=== PATIENT | female | born 1980 | race Caucasian/White ===

== ENCOUNTER 2019-11-11 08:22 | Outpatient (CLI) | payer OTHER, SELFPAY ==
--- NOTE | 2019-11-11 08:33 | US_ITS ---
WS: [id number] RIGHT UPPER QUADRANT ULTRASOUND HISTORY: ELEVATED LIVER ENZYMES COMPARISON: None available. Liver: 14.7 cm in length. Normal size and echogenicity with no intrahepatic dilatation. No mass. Gallbladder: Normally distended gallbladder with no stones or wall thickening. CBD: 0.3 cm Pancreas: Normal size and echogenicity. Right kidney: 12.4 cm in length. Normal echogenicity with no mass or hydronephrosis. Aorta and IVC: Unremarkable. No ascites. US/US abdomen limited [id number] IMPRESSION: Normal RIGHT upper quadrant ultrasound.
== END 2019-11-11 08:23 | disposition home or self-care (01) ==
LOC: RAD 08:24
PROVIDERS: PCP Nurse Practitioner; Visit Provider Nurse Practitioner
DX: R74.8 Abnormal levels of other serum enzymes (principal)
CPT/HCPCS: 76705

== ENCOUNTER 2020-05-01 07:57 | Outpatient (CLI) | payer OTHER, SELFPAY ==
--- NOTE | 2020-05-01 08:45 | US_ITS ---
WS: [id number] ULTRASOUND ABDOMEN LIMITED CLINICAL INFORMATION: RIGHT UPPER QUADRANT PAIN COMPARISON: November 11, 2019 FINDINGS: Liver Normal portal vein flow Size: Normal. Craniocaudal length: 14.8 cm. Echogenicity: Normal. Surface nodularity: None. Mass (size and location): Small cyst in left hepatic lobe. Bile ducts Intrahepatic ducts: Normal. Common bile duct diameter: 0.3 cm. Gallbladder Cholecystectomy Pancreas Not well seen due to bowel gas Right kidney: Normal. Hydronephrosis: None. Size: 12.3 cm x 5.4 cm x 3.9 cm. Abdominal aorta and IVC Visualized portions are normal. Ascites: None. US/US abdomen limited 11586 IMPRESSION: 1. Normal liver with simple 13 mm hepatic cyst 2. Gallbladder has been surgically removed. 3. No hydronephrosis in right kidney. 4. No ascites.
== END 2020-05-01 07:58 | disposition home or self-care (01) ==
PROVIDERS: PCP Nurse Practitioner; Visit Provider Nurse Practitioner
DX: R10.11 Right upper quadrant pain (principal); Z90.49 Acquired absence of other specified parts of digestive tract
CPT/HCPCS: 76705; 81025

== ENCOUNTER → 2020-05-24 14:57 | Outpatient (BNVA) | payer OTHER, SELFPAY | PROVIDERS: PCP Nurse Practitioner; Visit Provider Obstetrics & Gynecology | DX: R87.610 Atypical squamous cells of undetermined significance on cytologic smear of cervix (ASC-US) (principal); R87.810 Cervical high risk human papillomavirus (HPV) DNA test positive | CPT/HCPCS: 88305 ==

== ENCOUNTER 2020-10-24 13:56 | Outpatient (CLI) | payer OTHER, SELFPAY ==
--- NOTE | 2020-10-24 14:03 | US_ITS ---
WS: [id number] THYROID ULTRASOUND (TI-RADS CRITERIA) History: Enlarged thyroid. Technique: Ultrasound examination of the thyroid and adjacent soft tissues is performed. FINDINGS: Right lobe: 4.6 cm x 1.9 cm x 1.7 cm. Volume: 7.5 cm3. Normal size gland. No increased vascularity. Lymph nodes: None. NODULE: 1 Size: 0.8 x 0.9 x 1.1 cm Location: Mid gland. Composition: Mixed cystic and solid (1) Echogenicity: Hyperechoic (1) Shape: Not taller than wide (0) Margins: Smooth (0) Echogenic foci: 0 ACR TI-RADS total points: 2 ACR TI-RADS risk category: TR2 Left lobe: 4.4 cm x 1.5 cm x 1.5 cm. Volume: 5.0 cm3. Normal size gland. Very mild heterogeneity. No nodule. Lymph nodes: None. Isthmus: 0.2 cm. US/US thyroid [id number] Impression: TR2 Recommendation:No FNA or follow-up.
== END 2020-10-24 13:57 | disposition home or self-care (01) ==
LOC: US 14:00
PROVIDERS: PCP Nurse Practitioner; Visit Provider Nurse Practitioner
DX: E04.9 Nontoxic goiter, unspecified (principal)
CPT/HCPCS: 76536

== ENCOUNTER → 2021-06-21 12:15 | Outpatient (BNVA) | payer OTHER, SELFPAY | PROVIDERS: PCP Nurse Practitioner; Visit Provider Registered Nurse Neonatal Intensive Care | DX: N39.0 Urinary tract infection, site not specified (principal) | CPT/HCPCS: 81000 ==

== ENCOUNTER → 2021-09-18 12:38 | Outpatient (BNVA) | payer OTHER, SELFPAY | PROVIDERS: PCP Nurse Practitioner; Visit Provider Nurse Practitioner Family | DX: N39.0 Urinary tract infection, site not specified (principal) | CPT/HCPCS: 51798; 81003; 87086; 99203 ==

== ENCOUNTER → 2021-10-16 14:16 | Outpatient (BNVA) | payer OTHER, SELFPAY | PROVIDERS: PCP Nurse Practitioner; Visit Provider Obstetrics & Gynecology | DX: Z12.4 Encounter for screening for malignant neoplasm of cervix (principal) | CPT/HCPCS: 87624 ==

== ENCOUNTER → 2021-10-17 14:51 | Outpatient (BNVA) | payer OTHER, SELFPAY | PROVIDERS: PCP Nurse Practitioner; Visit Provider Obstetrics & Gynecology | DX: R89.6 Abnormal cytological findings in specimens from other organs, systems and tissues (principal); R87.610 Atypical squamous cells of undetermined significance on cytologic smear of cervix (ASC-US); N83.02 Follicular cyst of left ovary; N83.01 Follicular cyst of right ovary; N88.8 Other specified noninflammatory disorders of cervix uteri; Z97.5 Presence of (intrauterine) contraceptive device | CPT/HCPCS: 76830 ==

== ENCOUNTER → 2021-10-29 15:32 | Outpatient (BNVA) | payer OTHER, SELFPAY | PROVIDERS: PCP Nurse Practitioner; Visit Provider Urology | DX: N39.0 Urinary tract infection, site not specified (principal) | CPT/HCPCS: 81003; 99213 ==

== ENCOUNTER 2021-11-05 09:50 | Observation (INO) | payer OTHER, SELFPAY ==
[2021-11-04 14:42] VITALS: BMI 32.0
[2021-11-05] VITALS (17 sets, daily range): BP systolic 87–129; BP diastolic 55–87; PULSE 73–97; RESP 15–18; TEMP 36.3–36.7; O2SAT 94–98
[2021-11-05] MEDS: sodium chloride 0.9% 1,000 ML 30 ML IV (06:20)
[2021-11-05] MEDS: acetaminophen 1,000 MG/100 ML PIGGYBACK 400 MG IV (06:23)
[2021-11-05] MEDS: gabapentin 300 mg Capsule PO (06:24)
[2021-11-05] MEDS: CELEcoxib 200 mg Capsule 400 MG PO (06:24)
[2021-11-05] MEDS: phenazopyridine 100 mg Tablet 200 MG PO ×2 (06:25→14:29)
[2021-11-05] MEDS: scopolamine 1.5 Patch 1 PATCH TRANSDERMA (06:25)
[2021-11-05] MEDS: ketorolac 30 mg/mL INJ IVP ×4 (06:34→22:13)
--- NOTE | 2021-11-05 06:45 | P.ANESASSM_ITS ---
Pre-Anesthetic Assessment Height/Weight: Height 1.57 m Weight 79.379 kg Temp Pulse Resp BP Pulse Ox O2 Del Method 98 F 90 18 124/87 97 11/05/21 06:05 11/05/21 06:05 11/05/21 06:05 11/05/21 06:05 11/05/21 06:05 11/05/21 06:05 Preop Diagnosis: uterine prolapse, abnormal pap smear Operation Date: 11/05/21 07:00 Proposed Procedures p Laparoscopic assisted vaginal hysterectomy, bilateral salpingectomy 39940,R8 7.610,R87.810,N81.4(Not Applicable) - Tiffany Carvalho MD s Laparoscopic Salpingectomy(Bilateral) - Tiffany Carvalho MD Familial anesthetic complications: None Was Beta Poli taken within 24 hours: N/A Was Clonidine taken within 24 hours: N/A Last intake: Intake Last Liquid Date 11/04/21 Last Liquid Time 20:00 Last Solid Date 11/04/21 Last Solid Time 18:00 Social No alcohol and No tobacco Exam alert, oriented x 3, clear to auscultation bilaterally and regular rate & rhythm Airway Mallampati: Class III Dentition: other (dental implants) Pulmonary None reported CV/HEM None reported None reported Hepatic None reported GI None reported Metabolic None reported Musc/skel None reported Neuropsych None reported Anesthetic Plan ASA status: 2 Anesthesia: General Risk of > 500 ml blood loss (7ml/kg in children): No Medications/Allergies Home Medications Medication Instructions Recorded Confirmed Last Taken Type ibuprofen 200 mg tablet 200 mg PO Q6H PRN Pain 05/01/20 11/05/21 Unknown History levonorgestrel 20 mcg/24 hours (7 20 mcg intrauterine DAILY 05/01/20 11/05/21 Unknown History yrs) 52 mg intrauterine device (Mirena) fluoxetine 10 mg capsule (Prozac) 10 mg PO DAILY 06/21/21 11/05/21 11/04/21 History sulfamethoxazole 800 1 tab PO BID #60 tabs 10/29/21 11/05/21 11/04/21 Rx mg-trimethoprim 160 mg tablet Allergies Allergy/AdvReac Type Severity Reaction Status Date / Time No Known Allergies Allergy Verified 11/01/21 11:11 Current Medications Generic Name Dose Route Start Last Admin Trade Name Freq PRN Reason Stop Dose Admin Sodium Chloride 1,000 mls @ 30 mls/hr 11/05/21 06:00 11/05/21 06:20 Sodium Chloride 0.9% IV 11/06/21 05:59 30 mls/hr .Q24H DENITA Administration PFSH Anesthesia Medical History Contraception management Hx LEEP (loop electrosurgical excision procedure), cervix, Surgical History H/O eye surgery 2008- Lasik bilateral eyes H/O oral surgery wisdom teeth extraction History of breast augmentation History of cholecystectomy Family History Grandfather CAD (coronary artery disease) maternal Mother No problems noted. Grandmother CAD (coronary artery disease) maternal Family/Other Breast cancer maternal aunt, age onset 32-34 Rectal cancer maternal aunt Father No problems noted. Social History Smoking and tobacco status: never smoked Alcohol intake: current Alcohol intake frequency: holidays/special occasions only Alcohol type: wine and hard liquor Marital status: Current occupational status: employed History of recent travel: No Data Anesthesia : 11/05/21 06:10 11/05/21 06:10 Cardiac Studies: No Data to Display
[2021-11-05 06:46] LABS: Basophils # 0.1 10^3/uL (0.0-0.1); Basophils % 0.9 %; Eosinophils # 0.2 10^3/uL (0.0-0.8); Eosinophils % 2.6 %; Hematocrit 40.9 % (37.0-47.0); Lymphocytes # 2.5 10^3/uL (0.8-4.8); Lymphocytes % 38.2 %; Mean Corpuscular HGB Conc 34.2 g/dL (30.0-36.0); Mean Corpuscular Hemoglobin 32.3 pg (28.0-34.0); Mean Corpuscular Volume 94.5 fl (81-99); Mean Platelet Volume 9.7 fL (7.4-10.4); Monocytes # 0.5 10^3/uL (0.2-0.9); Monocytes % 7.7 %; Neutrophils # 3.28 10^3/uL (1.8-7.7); Neutrophils % 50.4 %; Nucleated Red Blood Cells % 0 %; Platelet Count 286 10^3/cmm (130-400); Red Blood Count 4.33 10^6/uL (4.1-5.3); Red Cell Distribution Width 11.7 % (12.1-15.1); White Blood Count 6.5 10^3/uL (4.0-10.0)
[2021-11-05 06:55] LABS: OR HCG Qualitative Urine Negative (Negative)
[2021-11-05 07:02] LABS: Anion Gap 14.8 (5-19); Blood Urea Nitrogen 13 mg/dL (6-20); Calcium 8.9 mg/dL (8.5-10.5); Carbon Dioxide 25 mmol/L (22-29); Chloride 101 mmol/L (98-107); Glomerular Filtration Rate 69.7 mL/min (90-130); Glucose 96 mg/dL (65-115); Osmolality Calculated 284 mOsm/kg (285-295); Potassium 3.8 mmol/L (3.5-5.1); Sodium 137 mmol/L (136-145)
--- NOTE | 2021-11-05 07:04 | P.HPUD_ITS ---
Surgery/Procedure H&P Update DATE OF PROCEDURE: November 05, 2021 DATE H&P PERFORMED: 11/01/21 H&P UPDATE INFORMATION: I have reviewed H&P completed within last 30 days, I have examined patient prior to procedure and Changes to prior documentation as noted here CHANGES TO PREVIOUS DOCUMENTATION: The patient's pap smear was abnormal. ASCUS HR HPV +. Discussed with patient that she will need yearly pap for the next 20 years. PREOP DIAGNOSIS: uterine prolapse, abnormal pap smear PRIMARY INDICATION FOR PROCEDURE: uterine prolapse PLANNED PROCEDURE: Operation Date: 11/05/21 07:00 Proposed Procedures p Laparoscopic assisted vaginal hysterectomy, bilateral salpingectomy 32638,R 87.610,R87.810,N81.4(Not Applicable) - Tiffany Carvalho MD s Laparoscopic Salpingectomy(Bilateral) - Tiffany Carvalho MD
[2021-11-05] MEDS: ceFAZolin 2,000 MG in sodium chloride 0.9% (plus) 50 ML 100 MG IV ×3 (07:09→23:29)
[2021-11-05] MEDS: vasopressin 20 unit/mL INJ 4 UNIT INJECTION (08:00)
--- NOTE | 2021-11-05 09:03 | PM.OP ---
Operative Report Date of procedure: November 05, 2021 Pre-op diagnosis: Preop Diagnosis uterine prolapse, abnormal pap smear Post-op diagnosis: same Post-op findings: 10 week sized uterus, normal appearing fallopian tubes,polycystic ovaries moderate bowel adhesion to the umbilicus Procedure done: LAVH, bilateral salpingectomy Specimens removed/disposition: uterus and bilateral fallopian tubes to pathology Surgeon: Tiffany Carvalho Anesthesia: General Estimated blood loss (mL): 150 IV fluids (mL): 1,300 Urine output (mL): 300 Complications: none Condition: stable Disposition: PACU Procedure: The patient was taken to the operating room where general anesthesia was administered and found to be adequate. She was prepped and draped in the normal sterile fashion in the dorsal lithotomy position in [facility]. A Matthews catheter was placed. A weighted speculum was placed into the vagina and the anterior lip of the cervix was grasped with a single tooth tenaculum. The Zumi uterine manipulator was placed. The weighted speculum was removed. The gloves were changed and attention was turned to the abdomen. A 5 mm supraumbilical incision was made. Using a 5 mm port with the camera, the port was placed into the abdomen. The abdomen was insufflated. There was a fairly large bowel adhesion to the anterior abdominal wall near the umbilicus. Two low, lateral 5 mm ports were placed on the left and right under direct visualization from the camera. The right tube was grasped and elevated. Using the laparoscopic cautery, the mesosalpinx was divided between the ovary and tube. The tube was removed. This was performed the same way on the left. The uteroovarian ligaments as well as the round ligaments were ligated. Attention was then turned to the vaginal portion of the procedure. The weighted speculum was placed into the vagina. The zumi manipulator was removed. The single tooth tenaculum was removed and replaced with the beni's tenaculum. 10 mL of dilute Pitressin was injected at the vesicovaginal junction. A circumferential incision was made at the vesicovaginal junction and the vaginal mucosa reflected cephalad. The posterior peritoneum was entered sharply with the Metzenbaum scissors and the long weighted speculum replaced. Using the Shaye clamps the uterosacral ligaments were clamped cut and suture-ligated. The anterior peritoneum was entered sharply with the metzenbaum scissors. Then sequentially the uterine arteries and cardinal ligaments were clamped cut and suture-ligated. A single-tooth tenaculum was used to deliver the uterus. The remaining segement of the utero-ovarian ligaments were clamped cut and suture-ligated bilaterally and the specimen was removed. There was good hemostasis with only mild bleeding from the cuff. The peritoneum was closed with a pursestring using 2-0 Vicryl. The vaginal cuff was closed with 0 Vicryl in a running locked pattern incorporating the uterosacral ligaments into the lateral aspects of the vaginal cuff. The Matthews catheter was removed and the cystoscope advanced into the bladder. The patient was given pyridium and bilateral spill was noted. There were no injuries or deficits noted in the bladder. The cystoscope was removed and the Matthews was replaced. Vaginal packing was placed for good hemostasis. The gloves and gowns were changed and attention was turned to the abdomen. The ports were closed with 2-0 monocryl with skin glue. The patient tolerated the procedure well. Sponge lap and needle counts were correct x3. She was taken to the recovery room in stable condition.
[2021-11-05] MEDS: fentaNYL 50 mcg/mL INJ 2mL IVP (09:11)
[2021-11-05] MEDS: dextrose 5%-sod chloride 0.45% 1,000 ML 125 ML IV (11:08)
--- NOTE | 2021-11-05 13:21 | ANE.PACU2 ---
Inpatient post-anesthesia follow up: Airway intact: Yes Vital signs: Temperature 97.3 F Pulse Rate 80 Respiratory Rate 16 Blood Pressure 110/69 Pulse Oximetry 97 Oxygen Delivery Me thod Room Air Oxygen Flow Rate Fraction of Inspir ed Oxygen Hydration adequate: Yes Nausea and vomiting: No Pain level: 1 Mental status: Baseline
[2021-11-05] MEDS: docusate sodium 100 mg Capsule PO (17:17)
[2021-11-05] MEDS: HYDROcodone-acetaminophen 5-325 mg Tablet PO (17:17)
[2021-11-06] MEDS: ketorolac 30 mg/mL INJ IVP (05:06)
[2021-11-06 05:10] VITALS: BP 106/64; PULSE 72; RESP 16; O2SAT 97
[2021-11-06 05:51] LABS: Hematocrit 36.1 % (37.0-47.0); Hemoglobin 12.4 g/dL (11.5-15.3); Mean Corpuscular HGB Conc 34.3 g/dL (30.0-36.0); Platelet Count 273 10^3/cmm (130-400); Red Blood Count 3.88 10^6/uL (4.1-5.3); Red Cell Distribution Width 11.9 % (12.1-15.1); White Blood Count 12.3 10^3/uL (4.0-10.0)
--- NOTE | 2021-11-06 08:36 | P.DS_ITS ---
Discharge Providers Date of Admission: 11/05/21 09:50 Date of Discharge: November 06, 2021 Attending Provider at Admission: Tiffany Carvalho MD Attending Provider at Discharge: Tiffany Carvalho MD Primary Care Provider: AMISH Marti Hospital Course Hospital Course The patient was admitted for surgery. She did well postoperatively and was ready for discharge on day #1 Physical Exam Narrative: The patient is doing well this morning. No concerns Const: COMMON NORMALS: no acute distress, patient oriented x3, no limitations, healthy appearing, alert and well nourished GENERAL APPEARANCE: cooperative, comfortable, well kempt and well developed ORIENTATION/CONSCIOUSNESS: Yes awake, Yes oriented to person, Yes oriented to place and Yes oriented to time Resp: COMMON NORMALS: normal respiratory effort EFFORT & INSPECTION: Yes able to speak in complete sentences GI: COMMON NORMALS: Soft to palpation and non-tender PALPATION: Yes Soft to palpation Extremity: COMMON NORMALS: no calf tenderness Neuro: COMMON NORMALS: patient oriented x3 SENSORIUM/ORIENTATION: Yes alert, Yes oriented to person, Yes oriented to place and Yes oriented to time Psych: APPEARANCE: Yes well kempt Urinary Catheter Management: Matthews: Cath Placed During This Visit: yes, but has since been removed by the nurse Reason for Continuing Indwelling Catheter: Decision to DC Catheter Urinary Catheter Date of Insertion: 11/05/21 Urinary Catheter Time of Insertion: 07:35 Date Urinary Catheter Removed: 11/06/21 Time Urinary Catheter Discontinued: 05:15 Discharge Data Studies Completed and Pending Pending at discharge Category Date Time Status ES surgery / GI images Routine Exams 11/05/21 06:40 Taken Urine Culture Routine Lab 11/05/21 07:35 Received Pathology: Surgical [PTH] Routine Pth 11/05/21 09:16 Received Laboratory Results WBC 12.3 10^3/uL (4.0-10.0) H 11/06/21 05:18 RBC 3.88 10^6/uL (4.1-5.3) L 11/06/21 05:18 Hgb 12.4 g/dL (11.5-15.3) 11/06/21 05:18 Hct 36.1 % (37.0-47.0) L 11/06/21 05:18 MCV 93.0 fl (81-99) 11/06/21 05:18 MCH 32.0 pg (28.0-34.0) 11/06/21 05:18 MCHC 34.3 g/dL (30.0-36.0) 11/06/21 05:18 RDW 11.9 % (12.1-15.1) L 11/06/21 05:18 Plt Count 273 10^3/cmm (130-400) 11/06/21 05:18 MPV 11.0 fL (7.4-10.4) H 11/06/21 05:18 Neut % (Auto) 50.4 % 11/05/21 06:10 Lymph % (Auto) 38.2 % 11/05/21 06:10 Camb[place] % (Auto) 7.7 % 11/05/21 06:10 Eos % (Auto) 2.6 % 11/05/21 06:10 Baso % (Auto) 0.9 % 11/05/21 06:10 Neut # (Auto) 3.28 10^3/uL (1.8-7.7) 11/05/21 06:10 Lymph # (Auto) 2.5 10^3/uL (0.8-4.8) 11/05/21 06:10 Cambria # (Auto) 0.5 10^3/uL (0.2-0.9) 11/05/21 06:10 Eos # (Auto) 0.2 10^3/uL (0.0-0.8) 11/05/21 06:10 Baso # (Auto) 0.1 10^3/uL (0.0-0.1) 11/05/21 06:10 Nucleated RBC % (auto) 0 % 11/05/21 06:10 Nucleated RBCs # 0.0 /100WBC 11/05/21 06:10 Sodium 137 mmol/L (136-145) 11/05/21 06:10 Potassium 3.8 mmol/L (3.5-5.1) 11/05/21 06:10 Chloride 101 mmol/L (98-107) 11/05/21 06:10 Carbon Dioxide 25 mmol/L (22-29) 11/05/21 06:10 Anion Gap 14.8 (5-19) 11/05/21 06:10 BUN 13 mg/dL (6-20) 11/05/21 06:10 Creatinine 0.9 mg/dL (0.5-0.9) 11/05/21 06:10 GFR Calculation 69.7 mL/min (90-130) L 11/05/21 06:10 Glucose 96 mg/dL (65-115) 11/05/21 06:10 Calculated Osmolality 284 mOsm/kg (285-295) L 11/05/21 06:10 Calcium 8.9 mg/dL (8.5-10.5) 11/05/21 06:10 Urine HCG, Qual Negative (Negative) 11/05/21 06:27 Blood Type A Positive 11/05/21 06:10 Rho(D) Type Positive 11/05/21 06:10 Antibody Screen Negative 11/05/21 06:10 Vitals Last Vital Signs Temp 97.7 F 11/05/21 22:00 Pulse 72 11/06/21 05:10 Resp 16 11/06/21 05:10 BP 106/64 11/06/21 05:10 Pulse Ox 97 11/06/21 05:10 O2 Del Method 11/06/21 05:10 Discharge Plan Discharge Patient Disposition: Home Condition: Stable Prescriptions: New docusate sodium 100 mg Capsule 100 mg PO BID Qty: 60 0RF ibuprofen 800 mg Tablet 800 mg PO Q8H Qty: 30 0RF hydrocodone-acetaminophen 5-325 mg Tablet 1 tab PO Q4H PRN (Reason: Moderate To Severe Pain) Qty: 25 0RF Continued ibuprofen 200 mg tablet 200 mg PO Q6H PRN (Reason: Pain) Mirena 20 mcg/24 hours (6 yrs) 52 mg intrauterine device 20 mcg intrauterine DAILY fluoxetine [Prozac] 10 mg capsule 10 mg PO DAILY sulfamethoxazole-trimethoprim 800-160 mg tablet 1 tab PO BID Qty: 60 2RF Discharge Orders: Discharge Order (Routine); Ordered 11/06/21 Ordered By: Tiffany Carvalho Patient Instructions: Opioid Safety Discharge Attestations Time Spent in Discharge Care*: less than 30 min Quality Metrics Clinical Quality Measures [ No reported AMI, CVA or VTE this stay] Coding Level of Care Code Acute Chg FW DC note
[2021-11-06 09:15] VITALS: BP 106/69; PULSE 78; RESP 16; TEMP 37
[2021-11-06] MEDS: HYDROcodone-acetaminophen 5-325 mg Tablet PO (09:15)
[2021-11-06] MEDS: ibuprofen 800 mg tablet PO (09:15)
[2021-11-06] MEDS: docusate sodium 100 mg Capsule PO (09:15)
== END 2021-11-06 09:28 | disposition home or self-care (01) ==
LOC: OBGYN 09:51
PROVIDERS: Anesthesiology; Admitting Provider Obstetrics & Gynecology; PCP Nurse Practitioner; Visit Provider Obstetrics & Gynecology
PROC: 0UT9FZZ Resection of Uterus, Via Natural or Artificial Opening With Percutaneous Endoscopic Assistance (ICD-10-PCS; CPT 58552; principal; 2021-11-05 07:00)
PROC: (CPT 58661; 2021-11-05 07:00)
DX: N81.4 Uterovaginal prolapse, unspecified (principal); R87.619 Unspecified abnormal cytological findings in specimens from cervix uteri; E28.2 Polycystic ovarian syndrome
CPT/HCPCS: 58552; 36415; 80048; 81025; 84703; 85025; 85027; 86850; 86900; 87086; 88305; G0378; J1100; J1170; J1885; J2250; J2405; J2704; J2710; J3010; J3490; J7030; J7799

== ENCOUNTER → 2021-12-27 08:27 | Outpatient (BNVA) | payer OTHER, SELFPAY | PROVIDERS: PCP Nurse Practitioner; Visit Provider Urology | DX: N30.20 Other chronic cystitis without hematuria (principal) | CPT/HCPCS: 87086; 99213 ==

== ENCOUNTER → 2022-01-20 13:18 | Outpatient (BNVA) | payer OTHER, SELFPAY | PROVIDERS: PCP Nurse Practitioner; Referring Provider Nurse Practitioner; Visit Provider Podiatrist Foot & Ankle Surgery | DX: M21.611 Bunion of right foot (principal); M21.612 Bunion of left foot | CPT/HCPCS: 73630; 99204 ==

== ENCOUNTER 2022-02-28 05:47 | Day surgery (SDC) | payer OTHER, SELFPAY ==
[2022-02-27 09:48] VITALS: BMI 31.1
--- NOTE | 2022-02-28 | XR_ITS ---
WS: [id number] Left foot, C-arm fluoroscopy, 02/28/2022 Clinical Data: left lapidus and buniectomy Comparison: Left foot, 01/20/2022 Findings: The patient has a fusion of the left first metatarsal cuneiform joint with a medial plate and 4 ortho pedic screws. There is also a longitudinal screw in the fusion. There has been a partial resection of the medial aspect of the head of the left metatarsal. XR/XR foot LT 2V [id number] Impression: Fusion of the left first metatarsal cuneiform joint with a partial resection of the medial head of the left first metatarsal.
[2022-02-28 05:54] VITALS: BP 127/80; PULSE 77; RESP 16; TEMP 36.9; O2SAT 97
[2022-02-28] MEDS: CELEcoxib 200 mg Capsule 400 MG PO (06:11)
[2022-02-28] MEDS: sodium chloride 0.9% 1,000 ML 30 ML IV (06:11)
--- NOTE | 2022-02-28 06:56 | W.PM.OPSUD ---
Surgery/Procedure H&P Update DATE OF PROCEDURE: February 28, 2022 DATE H&P PERFORMED: 02/28/22 CHANGES TO PREVIOUS DOCUMENTATION: None PREOP DIAGNOSIS: Left bunion deformity. PLANNED PROCEDURE: Operation Date: 02/28/22 07:00 Proposed Procedures p Left Lapidus and [place] bunionectomy. CPT code: 50875, 62551 M21.612(Left) - Ezequiel Damon DPM s Jones Bunionectomy(Left) - Ezequiel Damon DPM
--- NOTE | 2022-02-28 06:56 | P.HP_ITS ---
Providers/Chief Complaint Primary Care Provider: AMISH Marti Chief Complaint: Bunion of left foot History of Present Illness Laura Bullock is a 41 year old female Medial side of left foot next to great toe on left has history of stress fx rates that 75 % of time she is in pain denies any recent injury or trauma experiencing for 1 year been told she has a bunion, has been trying to wear wider shoes, padding spacing and anti-inflammatories without relief. wears wide shoes has tried spacing and padding and anti-inflammatories [id number] with minimal improvement Review of Systems General: Reports: 10 or more systems reviewed and unremarkable except in HPI and below Const: Denies: fever(s) or chills Eyes: Denies: change in vision Card: Denies: chest pain or palpitations Resp: Denies: dyspnea or productive cough GI: Denies: abdominal pain, nausea or vomiting : Denies: flank pain Musc: Reports: extremity pain, joint pain, joint stiffness, limited range of motion and deformity Skin/Breast: Reports: skin tenderness; Denies: rash Neuro: Reports: difficulty walking; Denies: numbness in extremities, sensory changes or frequent falls Psych: Denies: suicidal ideation Elias/Lymph: Denies: easy bruising Medications/Allergies Home Medications Medication Instructions Recorded Confirmed Last Taken Type fluoxetine 10 mg capsule (Prozac) 10 mg PO DAILY 06/21/21 02/28/22 02/27/22 History Crutches #1 ea 02/24/22 Unknown Rx Allergies Allergy/AdvReac Type Severity Reaction Status Date / Time No Known Allergies Allergy Verified 02/27/22 09:47 PFSH PFSH: Medical History Chronic cystitis Contraception management Hx LEEP (loop electrosurgical excision procedure), cervix, Surgical History H/O eye surgery 2008- Lasik bilateral eyes H/O oral surgery wisdom teeth extraction History of breast augmentation History of cholecystectomy Family History Grandfather CAD (coronary artery disease) maternal Mother No problems noted. Grandmother CAD (coronary artery disease) maternal Family/Other Breast cancer maternal aunt, age onset 32-34 Rectal cancer maternal aunt Father No problems noted. Social History Smoking and tobacco status: never smoked Alcohol intake: current Alcohol intake frequency: holidays/special occasions only Alcohol type: wine and hard liquor Marital status: Current occupational status: employed History of recent travel: No Vital Signs Vitals Signs: Last Vital Signs O2 Del Method 02/28/22 06:03 Weight: Weight last 48 hrs Weight 173 lb Physical Exam Narrative: EXAM NARRATIVE: GENERAL: Patient is alert and oriented ?3 and in no acute distress.? The following is a focused bilateral lower extremity exam. VASCULAR: Dorsalis pedis and posterior tibial arteries palpable +2.? Capillary refill time less than 3 seconds to the distal hallux bilaterally. Calf is supple and nontender proximally and distally.? No pedal edema appreciated.? Pedal hair growth present. NEUROLOGICAL: Epicritic and protopathic sensations grossly intact to the lower extremities.? +2 Achilles tendon reflex noted bilaterally.? Negative Tinel sign upon percussion of lower extremity nerves. DERMATOLOGICAL: Lower extremity skin is well-hydrated, normal texture and turgor.? There are no open sores or lesions noted to the lower extremities.? No erythema or ecchymosis present to the bilateral legs and feet. MUSCULOSKELETAL: Pain to palp patient left greater than right bunion.? Bunion deformity left greater than right.? Left hallux is not track bound.? No crepitus with range of motion at left first metatarsal phalangeal joint.? Hypermobility at the medial column left greater than right. CARDIOVASCULAR: S1, S2, normal rate, normal rhythm.? Dorsalis pedis and posterior tibial arteries palpable. LUNGS: Clear to auscltation, no use of acessory muscles, no crackles or wheezes. A&P Assessment and plan (1) Bilateral bunions: (2) Left foot pain: Plan Patient examined and evaluated, findings and treatment options were discussed with patient at length.? Patient has already exhausted conservative treatment consisting of wide accommodative shoes, prefabricated orthotics, anti- inflammatories [id number] on as-needed basis, activity modification and stretching.? She states that she has been performing these conservative treatments for years.? Over the past year her left bunion pain has become more dramatic, is now painful almost on a daily basis with everyday activities she would like to discuss surgical intervention for this reason. I reviewed at length with the patient, the risks, potential complications, benefits, alternatives, expectations, and typical outcomes associated with the surgery. The risks and potential complications were explained in detail, including but not limited to infection, wound dehiscence or soft tissue complications, bleeding and hematoma, chronic edema, neuritis or nerve damage producing numbness or chronic pain, CRPS, failure to relieve pain or worsening pain, thick / painful / unsightly scar, limited motion / stiffness, malposition, delayed union, malunion, or nonunion, fracture, reaction to implants, anesthetic complications, venous thromboembolism, and deformity recurrence.? I discussed the notion of no regrets with the patient as it pertains to complications and outcomes. The patient seemed to understand the nature of the proposed care and required convalescence. They asked appropriate questions, answered to their satisfaction. They are aware no guarantees can be made as to a satisfactory outcome and they understand there may be other possible unforeseen complications or outcomes not listed here that will be treated accordingly if they arise. There were no written or implied guarantees given to the patient. They gave informed consent to proceed. Hallux noted to be an abducted position. Tibial sesamoid position: 4. 1 - 2 IM angle is 16 degrees. Hallux abductus angle is increased. Metatarsal adductus angle is 2 degrees. Sieberg index of 2 mm. Recommended Lapidus and possible Jones osteotomy left foot she would like to have the scheduled 02/28/2022 outpatient. 02/28/2022, Lapidus/Jones bunionectomy.? Local MAC versus general per anesthesia preference.? Duration of procedure 60 minutes, gurney, supine, mini C arm, TPS, Pelican 28. Coding Level of Care Code Acute [employer] Bpm Consultant for Chg Fwd Diagnoses Bilateral bunions M21.611; M21.612 Left foot pain M79.672
[2022-02-28] MEDS: ceFAZolin 2,000 MG in sodium chloride 0.9% (plus) 50 ML 100 MG IV (07:00)
--- NOTE | 2022-02-28 07:46 | ANES.PREANE2 ---
Pre-Anesthetic Assessment Height/Weight: Height 1.59 m Weight 78.471 kg O2 Del Method 02/28/22 06:03 Preop Diagnosis: Left bunion deformity. Operation Date: 02/28/22 07:00 Proposed Procedures p Left Lapidus and [place] bunionectomy. CPT code: 95209, 27744 M21.612(Left) - Ezequiel Damon DPM s Jones Bunionectomy(Left) - Ezequiel Damon DPM Familial anesthetic complications: none Was Beta Poli taken within 24 hours: N/A Was Clonidine taken within 24 hours: N/A Last intake: Intake Last Liquid Date 02/27/22 Last Liquid Time 20:30 Last Solid Date 02/27/22 Last Solid Time 20:30 Social No alcohol and No tobacco Exam alert, oriented x 3, clear to auscultation bilaterally and regular rate & rhythm Airway Submandibular: within normal limits Cervical ROM: within normal limits Mallampati: Class II Comments: Comments: dental implant/invisalign Metabolic Morbid Obesity Neuropsych Depression Anesthetic Plan ASA status: 2 Anesthesia: Choice Medications/Allergies Home Medications Medication Instructions Recorded Confirmed Last Taken Type fluoxetine 10 mg capsule (Prozac) 10 mg PO DAILY 06/21/21 02/28/22 02/27/22 History Crutches #1 ea 02/24/22 Unknown Rx Allergies Allergy/AdvReac Type Severity Reaction Status Date / Time No Known Allergies Allergy Verified 02/27/22 09:47 Current Medications Generic Name Dose Route Start Last Admin Trade Name Freq PRN Reason Stop Dose Admin Sodium Chloride 1,000 mls @ 30 mls/hr 02/28/22 06:00 02/28/22 06:11 Sodium Chloride 0.9% IV 03/01/22 05:59 30 mls/hr .Q24H DENITA Administration PFSH Anesthesia Medical History Chronic cystitis Contraception management Hx LEEP (loop electrosurgical excision procedure), cervix, Surgical History H/O eye surgery 2008- Lasik bilateral eyes H/O oral surgery wisdom teeth extraction History of breast augmentation History of cholecystectomy Family History Grandfather CAD (coronary artery disease) maternal Mother No problems noted. Grandmother CAD (coronary artery disease) maternal Family/Other Breast cancer maternal aunt, age onset 32-34 Rectal cancer maternal aunt Father No problems noted. Social History Smoking and tobacco status: never smoked Alcohol intake: current Alcohol intake frequency: holidays/special occasions only Alcohol type: wine and hard liquor Marital status: Current occupational status: employed History of recent travel: No Data Anesthesia Cardiac Studies: No Data to Display
[2022-02-28 08:50] VITALS: BP 103/65; PULSE 88; RESP 16; TEMP 36.8; O2SAT 95
[2022-02-28 08:55] VITALS: BP 118/75; PULSE 84; RESP 17; O2SAT 96
--- NOTE | 2022-02-28 08:56 | SUR.PHASEI ---
0850 PT TO PACU 5 PT AWAKE ALERT TAKATIVE ORIENTED X 3 PT ON RA SATS 95-96% WITH NO DISTRESS NOTED, MONITOR SR WITH NO ECTOPY, IV TP RT AC #20 WITH NS 50ML UP AT KVO RATE ID BRACELET TO RT WRIST , PT ID'D WITH 2 IDENTIFIERS, PT VERBALLY DENIES COLD AND NAUSEA, C/O OF (LITTLE BIT) TO PAIN QUESTION, PT STATES TOUCH TO LT DISTAL TOES (NUMB) BUT CAN FEEL TOUCH, TOES PINK WARM WITH CAP REFILL LESS THAN 3 SECONDS. DRESSING AND BOOT TO LT FOOT D/I
[2022-02-28 09:00] VITALS: BP 106/65; PULSE 84; RESP 18; TEMP 37.1; O2SAT 95
[2022-02-28 09:05] VITALS: BP 117/75; PULSE 89; RESP 18; TEMP 37.1; O2SAT 97
--- NOTE | 2022-02-28 09:14 | SUR.PHASEI ---
0904 PT TO OPS PT VERY ALERT TALKATIVE, WITHOUT COMPLAINT,WANTS TO GET APPLE JUICE TO DRINK AND IS READY TO GO HOME, PT DRESSING D/I PT VERY ALERT AND OUT OF PHASE 1 NOW.HANDOFF AT BEDSIDE WITH OPS NURSE IRIS.
[2022-02-28 09:30] VITALS: BP 110/72; PULSE 88; RESP 16; O2SAT 97
[2022-02-28] MEDS: HYDROcodone-acetaminophen 10-325 mg Tablet 1 TAB PO (09:30)
--- NOTE | 2022-02-28 15:37 | ANE.PACU2 ---
Inpatient post-anesthesia follow up: Airway intact: Yes Vital signs: Temperature 98.7 F Pulse Rate 88 Respiratory Rate 16 Blood Pressure 110/72 Pulse Oximetry 97 Oxygen Delivery Me thod Room Air Oxygen Flow Rate Fraction of Inspir ed Oxygen Hydration adequate: Yes Nausea and vomiting: No Pain level: 2 Mental status: Baseline
--- NOTE | 2022-02-28 17:52 | P.OP_ITS ---
Operative Report Date of procedure: February 28, 2022 Pre-op diagnosis: Preop Diagnosis Left bunion deformity. Post-op diagnosis: Left knee deformity Post-op findings: Reduction of first intermetatarsal space left foot with Lapidus arthrodesis. Procedure done: Lab PODUS bunionectomy, left foot. CPT code 21934 Implants: [place] 28 primary Lapidus plate with locking and nonlocking screws. [place] 28 4 mm homerun screw. 3-0 Vicryl, 4-0 Vicryl, 5-0 Monocryl. Specimens removed/disposition: None Pathology: None Surgeon: Ezequiel Damon D.P.M. Media Consultant: See intraoperative documentation Estimated blood loss: 5 See intraoperative documentation IV fluids: 0 Urine output: 0 Complications: None Brief History: atient examined and evaluated, findings and treatment options were discussed with patient at length.? Patient has already exhausted conservative treatment consisting of wide accommodative shoes, prefabricated orthotics, anti- inflammatories [id number] on as-needed basis, activity modification and stretching.? She states that she has been performing these conservative treatments for years.? Over the past year her left bunion pain has become more dramatic, is now painful almost on a daily basis with everyday activities she would like to discuss surgical intervention for this reason. I reviewed at length with the patient, the risks, potential complications, benefits, alternatives, expectations, and typical outcomes associated with the surgery. The risks and potential complications were explained in detail, including but not limited to infection, wound dehiscence or soft tissue complications, bleeding and hematoma, chronic edema, neuritis or nerve damage producing numbness or chronic pain, CRPS, failure to relieve pain or worsening pain, thick / painful / unsightly scar, limited motion / stiffness, malposition, delayed union, malunion, or nonunion, fracture, reaction to implants, anesthetic complications, venous thromboembolism, and deformity recurrence.? I discussed the notion of no regrets with the patient as it pertains to complications and outcomes. The patient seemed to understand the nature of the proposed care and required convalescence. They asked appropriate questions, answered to their satisfaction. They are aware no guarantees can be made as to a satisfactory outcome and they understand there may be other possible unforeseen complications or outcomes not listed here that will be treated accordingly if they arise. There were no written or implied guarantees given to the patient. They gave informed consent to proceed. Hallux noted to be an abducted position. Tibial sesamoid position: 4. 1 - 2 IM angle is 16 degrees. Hallux abductus angle is increased. Metatarsal adductus angle is 2 degrees. Sieberg index of 2 mm. Recommended Lapidus and possible Jones osteotomy left foot she would like to have the scheduled 02/28/2022 outpatient. Procedure: Under mild sedation the patient was brought to the operating room and remained on the gurney in supine position. A timeout was performed. Anesthesia was then administered by the anesthesia service. Local anesthesia injected by myself consisting of 30 cc of 2-1 mixture 20 cc of 0.25% Marcaine plain and 10 cc of Exparel in a grid like fashion subcutaneously in a V block left proximal medial foot. Well-padded pneumatic tourniquet was applied to the left ankle. The left lower extremity was then scrubbed, prepped and draped utilizing normal aseptic technique. Left foot was in exanguinated with an Esmarch bandage and a tourniquet inflated to 250 mmHg. Attention was directed to the dorsal medial aspect of the left first metatarsal base and medial cuneiform joint where a curvilinear incision was made medial to the extensor houses longus tendon through skin with dissection carried down through subcutaneous tissue to the layer of periosteum utilizing a combination of blunt and sharp technique. Care was taken to retract and preserve neurovascular and tendinous structures. All bleeders were ligated and cauterized as necessary. Periosteal incision was made and the base of the first metatarsal and distal aspect of the medial cuneiform were freed from their soft tissue and capsular attachments followed by denuding all articular surface with curettage and power bur at the arthrodesis site for Lapidus bunionectomy. The incision was irrigated with copious months of sterile skin solution. For scaling and subchondral drilling were then performed followed by reduction of the first intermetatarsal angle parallel to the second metatarsal. Temporary fixation was then performed and utilizing standard AO technique a homerun screw from dorsal distal to proximal plantar was advanced at the arthrodesis site of the base of the first metatarsal and medial cuneiform followed by application of a medial locking plate utilizing standard AO technique 2 screws proximal and 2 distal with excellent bony apposition and compression noted. Temporary fixation was removed, robust stabilization of the arthrodesis site was appreciated intraoperatively. Reduced first intermetatarsal angle also appreciated and in all 3 standard views AP, oblique and lateral view hardware involved in the arthrodesis site did not violate adjacent joints. The incision was then irrigated with copious months of Staticin solution and closed with 3-0 Vicryl at periosteum, 4-0 Vicryl subcutaneous tissue and 5-0 Monocryl in a running intracuticular fashion. Incision reinforced with benzoin and Steri-Strips. Evaluating the medial aspect of the left first metatarsal head some osseous prominence remained. A incision directly over the dorsal medial aspect of the left first metatarsal phalange joint through skin with dissection carried down to the joint capsule utilizing sharp and blunt technique was performed followed by a linear capsulotomy and a resection of the medial eminence of the first metatarsal head and all rough edges being smoothed with a hand rasp. The incision was then flushed with copious amounts of sterile skin solution and closed with joint capsule reapproximated 3-0 Vicryl, subcutaneous tissue with 4- 0 Vicryl and skin with 5-0 Monocryl in a running intracuticular fashion reinforced with benzoin and Steri-Strips. Incisions were then dressed with Adaptic, sterile 4 x 4's Kerlix and Steffen wrap. Cam boot was applied to the left lower extremity. The tourniquet was then deflated and a prompt hyperemic response is noted to the distal digits of the left foot. Patient tolerated the procedure and anesthesia well and was transferred to the PACU with vital signs stable and vascular status intact. Following period of postoperative monitoring she will be discharged home may heel touch only for transfers otherwise nonweightbearing and to remain immobilized with a cam boot. I advised an 81 mg aspirin to be taken once daily starting the morning after surgery to help potentially reduce the risk of deep vein thrombosis.
== END 2022-02-28 09:50 | disposition home or self-care (01) ==
PROVIDERS: PCP Nurse Practitioner; Visit Provider Podiatrist Foot & Ankle Surgery
PROC: (CPT 28297; principal; 2022-02-28 07:00)
PROC: (CPT 28298; 2022-02-28 07:00)
DX: M21.612 Bunion of left foot (principal); E66.01 Morbid (severe) obesity due to excess calories; Z68.31 Body mass index [BMI] 31.0-31.9, adult
CPT/HCPCS: 28297; 73620; 76000; C1713; C9290; C9359; J0690; J1100; J2250; J2405; J2704; J3010; J3490; J7030

== ENCOUNTER → 2022-03-13 09:11 | Outpatient (BNVA) | payer OTHER, SELFPAY | PROVIDERS: PCP Nurse Practitioner; Visit Provider Podiatrist Foot & Ankle Surgery | DX: Z98.890 Other specified postprocedural states (principal) | CPT/HCPCS: 73630; 99024 ==

== ENCOUNTER → 2022-03-27 12:50 | Outpatient (BNVA) | payer OTHER, SELFPAY | PROVIDERS: PCP Nurse Practitioner; Visit Provider Podiatrist Foot & Ankle Surgery | DX: Z98.890 Other specified postprocedural states (principal) | CPT/HCPCS: 73630; 99024 ==

== ENCOUNTER → 2022-04-10 12:55 | Outpatient (BNVA) | payer OTHER, SELFPAY | PROVIDERS: PCP Nurse Practitioner; Visit Provider Podiatrist Foot & Ankle Surgery | DX: Z98.890 Other specified postprocedural states (principal) | CPT/HCPCS: 73630; 99024 ==

== ENCOUNTER → 2022-04-24 14:55 | Outpatient (BNVA) | payer OTHER, SELFPAY | PROVIDERS: PCP Nurse Practitioner; Visit Provider Podiatrist Foot & Ankle Surgery | DX: M79.672 Pain in left foot (principal); Z98.890 Other specified postprocedural states | CPT/HCPCS: 73630; 99024 ==

== ENCOUNTER 2022-04-25 11:07 | Emergency (ER) | payer OTHER, SELFPAY ==
[2022-04-25] VITALS (11 sets, daily range): BP systolic 100–128; BP diastolic 66–84; PULSE 103–111; RESP 18; TEMP 36.6; O2SAT 94–100; BMI 30.7
--- NOTE | 2022-04-25 11:50 | CTR_ITS ---
PROCEDURE INFORMATION: Exam: CT Abdomen And Pelvis With Contrast Exam date and time: 04/25/2022 12:46 PM Age: 41 years old Clinical indication: Abdominal pain; Localized; Right upper quadrant (ruq); Prior surgery; Surgery date: 6+ months; Surgery type: Gb, hyster; Additional info: Ruq pain TECHNIQUE: Imaging protocol: Computed tomography of the abdomen and pelvis with contrast. Radiation optimization: All CT scans at this facility use at least one of these dose optimization techniques: automated exposure control; mA and/or kV adjustment per patient size (includes targeted exams where dose is matched to clinical indication); or iterative reconstruction. Contrast material: OMNI 350; Contrast volume: 100 ml; Contrast route: INTRAVENOUS (IV); Other protocol: This patient has received 0 known CTs and 0 known cardiac nuclear medicine studies in the 12 months prior to the current study. COMPARISON: ES surgery / GI images 11/05/2021 6:54 AM RADIATION DOSE METRICS: Total DLP (mGy-cm): 613.95 FINDINGS: Liver: A small hepatic cyst measuring 1.3 cm noted. The liver is otherwise unremarkable. Gallbladder and bile ducts: The gallbladder has been surgically removed. Pancreas: Normal. No ductal dilation. Spleen: Normal. No splenomegaly. Adrenal glands: Normal. No mass. Kidneys and ureters: Normal. No hydronephrosis. Stomach and bowel: There are scattered air-fluid levels in the non abnormally distended small bowel and colon. No focal bowel inflammation or obstruction identified. Appendix: No evidence of appendicitis. Intraperitoneal space: Unremarkable. No free air. No significant fluid collection. Vasculature: Unremarkable. No abdominal aortic aneurysm. Lymph nodes: Small reactive mesenteric lymph nodes noted. Urinary bladder: Unremarkable as visualized. Reproductive: Small Bartholin's cyst noted on the left. The uterus is surgically absent. Bones/joints: Unremarkable. No acute fracture. Soft tissues: Bilateral breast implants noted. CT/CT abdomen pelvis w con* [id number] IMPRESSION: Nonspecific imaging findings, which can be seen with enteritis or colitis. Clinical correlation is recommended.
[2022-04-25 12:13] LABS: Basophils % 0.6 %; Eosinophils # 0.1 10^3/uL (0.0-0.8); Eosinophils % 0.8 %; Hematocrit 44.8 % (37.0-47.0); Hemoglobin 15.2 g/dL (11.5-15.3); Lymphocytes # 1.3 10^3/uL (0.8-4.8); Lymphocytes % 18.5 %; Mean Corpuscular HGB Conc 33.9 g/dL (30.0-36.0); Mean Corpuscular Hemoglobin 31.3 pg (28.0-34.0); Mean Corpuscular Volume 92.4 fl (81-99); Mean Platelet Volume 9.4 fL (7.4-10.4); Monocytes # 0.5 10^3/uL (0.2-0.9); Monocytes % 7.5 %; Neutrophils # 5.22 10^3/uL (1.8-7.7); Neutrophils % 72.2 %; Nucleated Red Blood Cells % 0 %; Platelet Count 334 10^3/cmm (130-400); Red Blood Count 4.85 10^6/uL (4.1-5.3); Red Cell Distribution Width 11.6 % (12.1-15.1); White Blood Count 7.2 10^3/uL (4.0-10.0)
[2022-04-25 12:27] LABS: Alanine Aminotransferase 27 U/L (0-33); Albumin Level 4.6 g/dL (3.5-5.2); Alkaline Phosphatase 93 U/L (35-105); Anion Gap 17.9 (5-19); Aspartate Amino Transferase 23 U/L (0-32); Blood Urea Nitrogen 14 mg/dL (6-20); Calcium 9.5 mg/dL (8.5-10.5); Carbon Dioxide 25 mmol/L (22-29); Chloride 97 mmol/L (98-107); Globulin 3.2 g/dL (1.3-4.6); Glomerular Filtration Rate 69.7 mL/min (90-130); Glucose 92 mg/dL (65-115); Lipase 21 U/L (13-60); Osmolality Calculated 282 mOsm/kg (285-295); Potassium 3.9 mmol/L (3.5-5.1); Sodium 136 mmol/L (136-145); Total Bilirubin 0.4 mg/dL (0.15-1.2); Total Protein 7.8 g/dL (6.6-8.7)
[2022-04-25] MEDS: iohexol 350 mg/mL 500 mL Btl (per mL) IV (12:50)
--- NOTE | 2022-04-25 14:27 | ED_ITS ---
HPI - Abdominal Pain General: Chief Complaint: Abdominal Pain Stated Complaint: abd pain Time Seen by Provider: 04/25/22 11:29 Source: patient Mode of arrival: ambulatory Limitations: no limitations History of Present Illness: This 41-year-old female presents with right upper quadrant pain that started 8 days ago. Pain has been constant since onset and patient currently rates it at 8 out of 10. Pain is dull with occasional episodes of sharpness to it. Pain was initially intermittent but has been constant since yesterday. [facility] and started on Bactrim because she had ear infection. Patient notes that her pain is not getting better. She has no prior history of peptic ulcer disease and has had a cholecystectomy in the past. There is no fever, nausea or vomiting. Patient is clinically stable. Associated Symptoms: Denies chills and dysuria Review of Systems Const: Denies: chills, body aches or change in appetite Eyes: Denies: change in vision or eye discharge ENMT: Denies: throat pain, dental pain or nasal discharge Card: Denies: chest pain or lightheadedness GI: Reports: abdominal pain (Right upper quadrant) : Denies: dysuria Musc: Denies: neck pain or back pain Neuro: Denies: headache(s) or weakness in extremities Psych: Denies: depression Elias/Lymph: Denies: easy bruising All/Imm: Denies: urticaria, tongue swelling or facial swelling PFSH ED PFSH: Medical History Chronic cystitis Contraception management Hx LEEP (loop electrosurgical excision procedure), cervix, Surgical History H/O eye surgery 2008- Lasik bilateral eyes H/O oral surgery wisdom teeth extraction History of breast augmentation History of cholecystectomy Family History Grandfather CAD (coronary artery disease) maternal Mother No problems noted. Grandmother CAD (coronary artery disease) maternal Family/Other Breast cancer maternal aunt, age onset 32-34 Rectal cancer maternal aunt Father No problems noted. Social History Smoking and tobacco status: never smoked Alcohol intake: current Alcohol intake frequency: holidays/special occasions only Alcohol type: wine and hard liquor Marital status: Current occupational status: employed History of recent travel: No Physical Exam Const: COMMON NORMALS: no acute distress, patient oriented x3, no limitations and alert HENMT: COMMON NORMALS: normocephalic HEAD & SCALP: normocephalic Eye: COMMON NORMALS: EOMs intact bilaterally Neck/C-Spine: COMMON NORMALS: full ROM and supple Chest: COMMONS NORMALS: normal inspection of the chest Resp: COMMON NORMALS: normal respiratory effort, No retractions, No use of accessory muscles and clear to auscultation bilaterally AUSCULTATION: clear to auscultation bilaterally Cardio: COMMON NORMALS: regular rate, regular rhythm and No murmurs present (Cardio) RATE: regular rate RHYTHM: regular rhythm GI: OTHER: Abdomen is soft, mild tenderness in the right upper quadrant. No distention or rigidity. Normal bowel sounds. : COMMON NORMALS: Yes no CVA tenderness BLADDER/KIDNEY EXAM: Yes no CVA tenderness Back/Pelvis: COMMON NORMALS: no CVA tenderness and no thoracic nor lumbar tenderness Extremity: GENERAL: Yes normal exam except as noted Neuro: COMMON NORMALS: patient oriented x3 and no focal motor deficits SENSORIUM/ORIENTATION: Yes alert Psych: COMMON NORMALS: mental status grossly normal and cooperative Course Vital Signs: Vital signs: Vital Signs Temperature 97.8 F 04/25/22 11:21 Pulse Rate 111 H 04/25/22 11:21 Respiratory Rate 18 04/25/22 11:21 Blood Pressure 100/74 04/25/22 13:30 Pulse Oximetry 96 04/25/22 13:30 Oxygen Delivery Me thod 04/25/22 11:21 MDM - Abdominal Pain Medical Decision Making Medical decision making: Patient's pain is located mainly in the right upper quadrant and to a lesser extent the epigastric area. She is mildly tender in the area. Liver function test is normal. CT abdomen/pelvis is negative for any acute intra-abdominal process. I will give her a trial of omeprazole for gastritis. If patient's symptoms persist, she may benefit from an upper GI endoscopy. She will follow-up with her primary care physician for reevaluation. Return instructions provided. Lab Data 04/25/22 11:40 04/25/22 11:40 Labs/Radiology: Radiology Impressions Abdomen/Pelvis CT 04/25/22 11:50 IMPRESSION: Nonspecific imaging findings, which can be seen with enteritis or colitis. Clinical correlation is recommended. Laboratory Results WBC 7.2 10^3/uL (4.0-10.0) 04/25/22 11:40 RBC 4.85 10^6/uL (4.1-5.3) 04/25/22 11:40 Hgb 15.2 g/dL (11.5-15.3) 04/25/22 11:40 Hct 44.8 % (37.0-47.0) 04/25/22 11:40 MCV 92.4 fl (81-99) 04/25/22 11:40 MCH 31.3 pg (28.0-34.0) 04/25/22 11:40 MCHC 33.9 g/dL (30.0-36.0) 04/25/22 11:40 RDW 11.6 % (12.1-15.1) L 04/25/22 11:40 Plt Count 334 10^3/cmm (130-400) 04/25/22 11:40 MPV 9.4 fL (7.4-10.4) 04/25/22 11:40 Neut % (Auto) 72.2 % 04/25/22 11:40 Lymph % (Auto) 18.5 % 04/25/22 11:40 [place]isco[place] % (Auto) 7.5 % 04/25/22 11:40 Eos % (Auto) 0.8 % 04/25/22 11:40 Baso % (Auto) 0.6 % 04/25/22 11:40 Neut # (Auto) 5.22 10^3/uL (1.8-7.7) 04/25/22 11:40 Lymph # (Auto) 1.3 10^3/uL (0.8-4.8) 04/25/22 11:40 [place]iscoe # (Auto) 0.5 10^3/uL (0.2-0.9) 04/25/22 11:40 Eos # (Auto) 0.1 10^3/uL (0.0-0.8) 04/25/22 11:40 Baso # (Auto) 0.0 10^3/uL (0.0-0.1) 04/25/22 11:40 Nucleated RBC % (auto) 0 % 04/25/22 11:40 Nucleated RBCs # 0.0 /100WBC 04/25/22 11:40 Sodium 136 mmol/L (136-145) 04/25/22 11:40 Potassium 3.9 mmol/L (3.5-5.1) 04/25/22 11:40 Chloride 97 mmol/L (98-107) L 04/25/22 11:40 Carbon Dioxide 25 mmol/L (22-29) 04/25/22 11:40 Anion Gap 17.9 (5-19) 04/25/22 11:40 BUN 14 mg/dL (6-20) 04/25/22 11:40 Creatinine 0.9 mg/dL (0.5-0.9) 04/25/22 11:40 GFR Calculation 69.7 mL/min (90-130) L 04/25/22 11:40 Glucose 92 mg/dL (65-115) 04/25/22 11:40 Calculated Osmolality 282 mOsm/kg (285-295) L 04/25/22 11:40 Calcium 9.5 mg/dL (8.5-10.5) 04/25/22 11:40 Total Bilirubin 0.4 mg/dL (0.15-1.2) 04/25/22 11:40 AST 23 U/L (0-32) 04/25/22 11:40 ALT 27 U/L (0-33) 04/25/22 11:40 Alkaline Phosphatase 93 U/L (35-105) 04/25/22 11:40 Total Protein 7.8 g/dL (6.6-8.7) 04/25/22 11:40 Albumin 4.6 g/dL (3.5-5.2) 04/25/22 11:40 Globulin 3.2 g/dL (1.3-4.6) 04/25/22 11:40 Lipase 21 U/L (13-60) 04/25/22 11:40 Discharge Plan Discharge Patient Disposition: Home Clinical Impression: Gastritis Condition: Stable Prescriptions: New omeprazole 40 mg capsule,delayed release(DR/EC) 40 mg PO DAILY Qty: 30 0RF tramadol 50 mg tablet 50 mg PO TID PRN (Reason: pain) Qty: 20 0RF No Action fluoxetine [Prozac] 10 mg capsule 10 mg PO DAILY (DME) Crutches See Rx Instructions .Route .MEDSUPPLY Qty: 1 0RF Rx Instructions: As directed by HOME- Patient is scheduled for surgery on 02/28/22- will sent operative notes once completed. Thank you!! sulfamethoxazole-trimethoprim 800-160 mg tablet 1 tab PO BID Discharge Orders: Discharge ED (Routine); Ordered 04/25/22 Ordered By: Иван Javier Referrals: Alexandra Palacios FNP [Primary Care Provider] - Patient Instructions: Opioid Safety, Pain Management Activity Restrictions/Additional Instructions: Take omeprazole as prescribed. Take tramadol as needed for pain. Follow-up with your primary care physician within a week for reevaluation. Return if you develop any new or worsening symptoms. Coding Level of Care Code ED Director Of Sales Marketing for Lillie García Exam Comprehensive
== END 2022-04-25 15:08 | disposition home or self-care (01) ==
PROVIDERS: Emergency Provider Family Medicine; PCP Nurse Practitioner
DX: K29.70 Gastritis, unspecified, without bleeding (principal)
CPT/HCPCS: 74177; 80053; 83690; 85025; 99285; Q9967

== ENCOUNTER → 2022-05-29 14:11 | Outpatient (BNVA) | payer OTHER, SELFPAY | PROVIDERS: PCP Nurse Practitioner; Visit Provider Podiatrist Foot & Ankle Surgery | DX: Z98.890 Other specified postprocedural states (principal) | CPT/HCPCS: 73630; 99024 ==

== ENCOUNTER → 2022-06-19 14:52 | Outpatient (BNVA) | payer OTHER, SELFPAY | PROVIDERS: PCP Nurse Practitioner; Visit Provider Podiatrist Foot & Ankle Surgery | DX: Z98.890 Other specified postprocedural states (principal) | CPT/HCPCS: 73630; 99024 ==

== ENCOUNTER → 2022-09-26 08:07 | Outpatient (BNVA) | payer OTHER, SELFPAY | PROVIDERS: PCP Nurse Practitioner; Visit Provider Nurse Practitioner Family | DX: L57.0 Actinic keratosis (principal); L55.9 Sunburn, unspecified; B35.3 Tinea pedis | CPT/HCPCS: 17004; 99214 ==

== ENCOUNTER → 2022-11-10 08:07 | Outpatient (BNVA) | payer OTHER, SELFPAY | PROVIDERS: PCP Nurse Practitioner; Visit Provider Nurse Practitioner Family | DX: B35.3 Tinea pedis (principal); L81.4 Other melanin hyperpigmentation; D22.5 Melanocytic nevi of trunk | CPT/HCPCS: 99213 ==

== ENCOUNTER → 2023-01-05 09:07 | Outpatient (BNVA) | payer OTHER, SELFPAY | PROVIDERS: PCP Nurse Practitioner; Visit Provider Nurse Practitioner Family | DX: B35.3 Tinea pedis (principal); L81.4 Other melanin hyperpigmentation; D22.5 Melanocytic nevi of trunk; Z71.89 Other specified counseling; L30.8 Other specified dermatitis | CPT/HCPCS: 99213 ==

== ENCOUNTER 2023-04-17 08:22 | Outpatient (CLI) | payer OTHER, SELFPAY ==
--- NOTE | 2023-04-17 08:29 | MM_ITS ---
WS: [id number] BILATERAL SCREENING DIGITAL BREAST MAMMOGRAPHY WITH KEZIA DISPLACEMENT VIEWS. CAD PERFORMED. HISTORY: Z12.39 - Encounter for other screening for malignant neop... COMPARISON: None available. Bilateral craniocaudal and mediolateral oblique views are performed with tomosynthesis and SM. Kezia displacement views in CC and MLO projection also performed. Breasts composition: There are scattered areas of fibroglandular density. Retropectoral implants are intact. No suspicious mass or calcification. No nipple retraction. IMPRESSION: MM/[place] [id number] BI-RADS: 2-Benign FOLLOW-UP: 1 Year Follow-up
== END 2023-04-17 08:23 | disposition home or self-care (01) ==
LOC: RAD 08:23
PROVIDERS: PCP Nurse Practitioner; Visit Provider Nurse Practitioner
DX: Z12.31 Encounter for screening mammogram for malignant neoplasm of breast (principal); Z98.82 Breast implant status; R92.323 Mammographic fibroglandular density, bilateral breasts
CPT/HCPCS: 77063; 77067

== ENCOUNTER 2023-11-10 05:51 | Inpatient (IN) | payer OTHER, SELFPAY ==
[2023-11-10] VITALS (8 sets, daily range): BP systolic 101–142; BP diastolic 69–88; PULSE 86–116; RESP 14–18; TEMP 36.6–36.7; O2SAT 96–100; BMI 25.9
--- NOTE | 2023-11-10 05:57 | ED_ITS ---
HPI - Abdominal Pain 2 General: Chief Complaint: Abdominal Pain Stated Complaint: Lower abd pain Time Seen by Provider: 11/10/23 05:55 History of Present Illness: 43-year-old female presents emergency ro om complaining abdominal pain pain began yesterday afternoon she was very nauseated, denies any medic easier melena denies dysuria urgency or frequency no flank pain initially periumbilical has moved to the right lower quadrant. Patient has previously had cholecystectomy and hysterectomy. No diarrhea. Onset (ago): day(s) (1) Location: Periumbilical Quality: sharp Migration to: RLQ Relieving factors: nothing Associated Symptoms: Reports nausea and vomiting; Denies chills, coffee ground emesis, dysuria, fever(s) and hematemesis Related Data Home Medications Medication Instructions Recorded Confirmed cetirizine 10 mg capsule (All Day 10 mg PO DAILY PRN ALLERGIES 10/30/23 11/10/23 Allergy (cetirizine)) Vitamin Adk 1 cap PO DAILY 11/10/23 11/10/23 Womens Dim 1 cap PO DAILY 11/10/23 11/10/23 Allergies Allergy/AdvReac Type Severity Reaction Status Date / Time No Known Allergies Allergy Verified 11/10/23 06:03 Review of Systems 2 Const: Denies: fever(s) or chills Card: Denies: chest pain Resp: Denies: dyspnea GI: Reports: abdominal pain, nausea and vomiting; Denies: hematemesis or coffee ground emesis : Denies: dysuria, urinary frequency or urinary urgency Musc: Denies: neck pain or back pain Skin/Breast: Denies: rash PFSH ED 2 PFSH: Medical History Chronic cystitis Uterine prolapse Hx LEEP (loop electrosurgical excision procedure), cervix, Contraception management Surgical History H/O: hysterectomy History of bunionectomy (~01/2022) Performed by Dr. Damon at [facility] in [place], [place] History of cholecystectomy History of breast augmentation H/O eye surgery 2008- Lasik bilateral eyes H/O oral surgery wisdom teeth extraction Family History Grandfather CAD (coronary artery disease) maternal Mother No problems noted. Grandmother CAD (coronary artery disease) maternal Family/Other Breast cancer maternal aunt, age onset 32-34 Rectal cancer maternal aunt Father No problems noted. Social History Smoking and tobacco/nicotine status: never used tobacco/nicotine Alcohol intake: current Alcohol intake frequency: holidays/special occasions only Alcohol type: wine and hard liquor Substance/Drug Use: never Marital status: Current occupational status: employed Physical Exam 2 Const: COMMON NORMALS: no acute distress GENERAL APPEARANCE: cooperative and comfortable ORIENTATION/CONSCIOUSNESS: Yes awake, Yes oriented to person, Yes oriented to place and Yes oriented to time HENMT: COMMON NORMALS: normocephalic, atraumatic and hearing grossly normal bilaterally HEAD & SCALP: normocephalic and atraumatic Resp: COMMON NORMALS: normal respiratory effort, No retractions, No use of accessory muscles and clear to auscultation bilaterally AUSCULTATION: clear to auscultation bilaterally Cardio: COMMON NORMALS: regular rate, regular rhythm and No murmurs present (Cardio) RATE: regular rate RHYTHM: regular rhythm GI: COMMON NORMALS: No hepatosplenomegaly present AUSCULTATION: Yes normoactive bowel sounds PALPATION: Yes Tenderness to palpation present (GI) Details: RLQ, No Guarding due to palpation present (GI) and Yes No hepatosplenomegaly present Extremity: COMMON NORMALS: normal to inspection, capillary refill normal, no clubbing, cyanosis or edema, no calf tenderness and no pedal edema Neuro: SENSORIUM/ORIENTATION: Yes oriented to person, Yes oriented to place and Yes oriented to time Skin: COMMON NORMALS: no rashes or lesions noted GENERAL SKIN EXAM: no rashes or lesions noted Course 2 Vital Signs: Vital signs: Vital Signs Temperature 97.9 F 11/10/23 05:53 Pulse Rate 88 11/10/23 06:33 Respiratory Rate 14 11/10/23 06:33 Blood Pressure 111/78 11/10/23 06:33 Pulse Oximetry 99 11/10/23 06:33 Oxygen Delivery Me thod Room Air 11/10/23 06:33 MDM - Abdominal Pain Medical Decision Making CT shows gastroenteritis possible partial small bowel obstruction. Dr. Ramirez was consulted he concurs recommends NG and admission. Incidental finding patient also had a cystitis. White count is elevated with a left shift. Lactic acid today was normal. Patient given IV fluids she was initially tachycardic when she arrived her heart rate was improved after initial fluid bolus was given a second 30 mL/kg bolus blood cultures done started on Zosyn NG placed. Urine has been cultured as well discussed with hospitalist orders written consult for surgery on the chart as well. Medical Records I reviewed the patient's medical records. Lab Data I reviewed the patient's lab results. 11/10/23 06:04 11/10/23 06:04 Labs/Radiology: Radiology Impressions Abdomen/Pelvis CT 11/10/23 06:25 IMPRESSION: Focal segmental wall thickening of mid ileal loop in mid abdomen with proximal small bowel dilatation containing air-fluid levels. Focal acute enteritis with partial small bowel obstruction suspected. Recommend surgical consultation. Recommend short-term follow-up study/small bowel follow-through study. Laboratory Results WBC 13.16 10^3/uL (3.29-11.43) H 11/10/23 06:04 RBC 4.95 10^6/uL (3.85-5.65) 11/10/23 06:04 Hgb 15.90 g/dL (11.27-16.99) 11/10/23 06:04 Hct 45.9 % (36-47) 11/10/23 06:04 MCV 92.7 fl (85-98) 11/10/23 06:04 MCH 32.1 pg (27-33) 11/10/23 06:04 MCHC 34.6 g/dL (30-55) 11/10/23 06:04 RDW 11.9 % (12.1-15.1) L 11/10/23 06:04 Plt Count 308 10^3/cmm (157-399) 11/10/23 06:04 MPV 9.3 fL (7.4-10.4) 11/10/23 06:04 Neut % (Auto) 80.7 % 11/10/23 06:04 Lymph % (Auto) 13.2 % 11/10/23 06:04 Island % (Auto) 4.9 % 11/10/23 06:04 Eos % (Auto) 0.6 % 11/10/23 06:04 Baso % (Auto) 0.4 % 11/10/23 06:04 Neut # (Auto) 10.61 10^3/uL (1.8-7.7) H 11/10/23 06:04 Lymph # (Auto) 1.7 10^3/uL (0.8-4.8) 11/10/23 06:04 Island # (Auto) 0.7 10^3/uL (0.2-0.9) 11/10/23 06:04 Eos # (Auto) 0.1 10^3/uL (0.0-0.8) 11/10/23 06:04 Baso # (Auto) 0.1 10^3/uL (0.0-0.1) 11/10/23 06:04 Nucleated RBC % (auto) 0 % 11/10/23 06:04 Nucleated RBCs # 0.0 /100WBC 11/10/23 06:04 Sodium 139 mmol/L (136-145) 11/10/23 06:04 Potassium 4.3 mmol/L (3.5-5.1) 11/10/23 06:04 Chloride 99 mmol/L (98-107) 11/10/23 06:04 Carbon Dioxide 25 mmol/L (22-29) 11/10/23 06:04 Anion Gap 19.3 (5-19) H 11/10/23 06:04 BUN 14 mg/dL (6-20) 11/10/23 06:04 Creatinine 0.9 mg/dL (0.5-0.9) 11/10/23 06:04 GFR Calculation 69.0 mL/min (90-130) L 11/10/23 06:04 Glucose 113 mg/dL (65-115) 11/10/23 06:04 Calculated Osmolality 289 mOsm/kg (285-295) 11/10/23 06:04 Lactic Acid 0.9 mmol/L (0.5-2.2) 11/10/23 10:12 Calcium 9.8 mg/dL (8.5-10.5) 11/10/23 06:04 Total Bilirubin 1.0 mg/dL (0.15-1.2) 11/10/23 06:04 AST 13 U/L (0-32) 11/10/23 06:04 ALT 12 U/L (0-33) 11/10/23 06:04 Alkaline Phosphatase 64 U/L (35-105) 11/10/23 06:04 Total Protein 8.5 g/dL (6.6-8.7) 11/10/23 06:04 Albumin 4.8 g/dL (3.5-5.2) 11/10/23 06:04 Globulin 3.7 g/dL (1.3-4.6) 11/10/23 06:04 Lipase 21 U/L (13-60) 11/10/23 06:04 HCG, Qual Negative (Negative) 11/10/23 06:04 Urine Color Yellow (Yellow) 11/10/23 06:23 Urine Appearance Cloudy (CLEAR) A 11/10/23 06:23 Urine pH 8 (5-7) A 11/10/23 06:23 Ur Specific [place] 1.015 (1.005-1.030) 11/10/23 06:23 Urine Protein Neg (Negative) 11/10/23 06:23 Urine Glucose (UA) Norm (Normal) 11/10/23 06:23 Urine Ketones 1+ (Negative) H 11/10/23 06:23 Urine Blood 2+ (Negative) H 11/10/23 06:23 Urine Nitrate Negative (Negative) 11/10/23 06:23 Urine Bilirubin Neg (Negative) 11/10/23 06:23 Urine Urobilinogen 4 mg/dL (Negative) H 11/10/23 06:23 Ur Leukocyte Esterase 2+ (Negative) H 11/10/23 06:23 Urine RBC 5-10 /hpf (0-2) H 11/10/23 06:23 Urine WBC 5-10 /hpf (0-5) H 11/10/23 06:23 Ur Squamous Epith Cells 0-4 /hpf (0-5) H 11/10/23 06:23 Amorphous Sediment 2+ /hpf 11/10/23 06:23 Urine Bacteria 3+ /hpf (NONE) H 11/10/23 06:23 All radiology interpretation(s) finalized by discharge Discharge Plan Discharge Patient Disposition: Admitted As Inpatient Clinical Impression: SBO (small bowel obstruction), Cystitis Condition: Stable Prescriptions: No Action All Day Allergy (cetirizine) 10 mg capsule 10 mg PO DAILY PRN (Reason: ALLERGIES) Vitamin Adk 1 cap PO DAILY Womens Dim 1 cap PO DAILY Referrals: Alexandra Palacios FNP [Primary Care Provider] - Patient Instructions: Opioid Safety, Pain Management Coding Level of Care Code ED Websphere Process Server Developer for Lillie García
[2023-11-10 06:09] LABS: Basophils # 0.1 10^3/uL (0.0-0.1); Basophils % 0.4 %; Eosinophils # 0.1 10^3/uL (0.0-0.8); Eosinophils % 0.6 %; Hematocrit 45.9 % (36-47); Lymphocytes # 1.7 10^3/uL (0.8-4.8); Lymphocytes % 13.2 %; Mean Corpuscular HGB Conc 34.6 g/dL (30-55); Mean Corpuscular Hemoglobin 32.1 pg (27-33); Mean Corpuscular Volume 92.7 fl (85-98); Mean Platelet Volume 9.3 fL (7.4-10.4); Monocytes # 0.7 10^3/uL (0.2-0.9); Monocytes % 4.9 %; Neutrophils # 10.61 10^3/uL (1.8-7.7); Neutrophils % 80.7 %; Nucleated Red Blood Cells % 0 %; Platelet Count 308 10^3/cmm (157-399); Red Blood Count 4.95 10^6/uL (3.85-5.65); Red Cell Distribution Width 11.9 % (12.1-15.1); White Blood Count 13.16 10^3/uL (3.29-11.43)
--- NOTE | 2023-11-10 06:11 | ECG_ITS ---
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 Measurements Intervals [place] Rate: 94 P: 56 SD: 155 QRS: 58 QRSD: 76 T: 56 QT: 332 QTc: 416 Interpretive Statements SINUS RHYTHM No previous ECG available for comparison Electronically Signed On 11-10-2023 23:28:34 CDT by Mark Wilson M.D. [id number]
--- NOTE | 2023-11-10 06:25 | CTR_ITS ---
PROCEDURE INFORMATION: Exam: CT Abdomen And Pelvis With Contrast Exam date and time: 11/10/2023 6:44 AM Age: 43 years old Clinical indication: Abdominal pain; Epigastric; Prior surgery; Surgery date: 6+ months; Surgery type: Gb, hyst; Additional info: Abd pain/rlq TECHNIQUE: Imaging protocol: Computed tomography of the abdomen and pelvis with contrast. Radiation optimization: All CT scans at this facility use at least one of these dose optimization techniques: automated exposure control; mA and/or kV adjustment per patient size (includes targeted exams where dose is matched to clinical indication); or iterative reconstruction. Contrast material: [id number]; Contrast volume: 100 ml; Contrast route: INTRAVENOUS (IV); COMPARISON: CT abdomen pelvis w con* [id number] 04/25/2022 12:46 PM RADIATION DOSE METRICS: Total DLP (mGy-cm): 434 FINDINGS: Lungs: Lung bases are clear as visulized. Liver: 13 mm cyst in left lobe is stable. Gallbladder and biliary ducts: Cholecystectomy. No significant biliary ductal dilatation. Pancreas: Normal. No ductal dilation. Spleen: Normal. No splenomegaly. Adrenal glands: Normal. Kidneys and ureters: Stable small cortical cysts in left kidney lower pole. Cortical scarring in the upper pole of the left kidney is stable. No hydronephrosis. Stomach and bowel: Fluid containing dilated stomach, jejunum and proximal ileal loops. There is focal segmental area of wall thickening in mid ileal loop in mid abdomen anteriorly (series 3, image 47, series 5, image 44), measures about 8 cm in length, wall measures 5 mm. No sign of obstruction. Distal ileal loops are decompressed. No pneumatosis. Appendix: No evidence of appendicitis. Intraperitoneal space: Small ascites in posterior pelvis. Minimal edema in the mesentery. No free air. No significant fluid collection. Vasculature: No abdominal aortic aneurysm. Lymph nodes: No enlarged lymph nodes. Urinary bladder: Unremarkable as visualized. Reproductive: Hysterectomy noted. Bones/joints: No acute fracture. Soft tissues: Bilateral breast implants noted. Small umbilical hernia containing fat. CT/CT abdomen pelvis w con* [id number] IMPRESSION: Focal segmental wall thickening of mid ileal loop in mid abdomen with proximal small bowel dilatation containing air-fluid levels. Focal acute enteritis with partial small bowel obstruction suspected. Recommend surgical consultation. Recommend short-term follow-up study/small bowel follow-through study.
[2023-11-10 06:26] LABS: HCG, Serum Qual Negative (Negative)
[2023-11-10 06:28] LABS: Charge for UA Resulting for Rev
[2023-11-10 06:30] LABS: Alanine Aminotransferase 12 U/L (0-33); Albumin Level 4.8 g/dL (3.5-5.2); Alkaline Phosphatase 64 U/L (35-105); Anion Gap 19.3 (5-19); Blood Urea Nitrogen 14 mg/dL (6-20); Calcium 9.8 mg/dL (8.5-10.5); Carbon Dioxide 25 mmol/L (22-29); Chloride 99 mmol/L (98-107); Creatinine Clr Calc Pharmacy 72.4937; Globulin 3.7 g/dL (1.3-4.6); Glucose 113 mg/dL (65-115); Osmolality Calculated 289 mOsm/kg (285-295); Potassium 4.3 mmol/L (3.5-5.1); Sodium 139 mmol/L (136-145); Total Protein 8.5 g/dL (6.6-8.7)
[2023-11-10] MEDS: ondansetron 2 mg/ML SDV 2 mL 4 MG IVP ×2 (06:33→18:56)
[2023-11-10] MEDS: sodium chloride 0.9% 1,000 ML 999 ML IV (06:34)
[2023-11-10 06:37] LABS: Bilirubin Urine Neg (Negative); Blood Urine 2+ (Negative); Glucose Urine UA Norm (Normal); Ketones Urine 1+ (Negative); Leukocyte Esterase Urine 2+ (Negative); Nitrate Urine Negative (Negative); Protein Urine Neg (Negative); Specific Gravity, Urine 1.015 (1.005-1.030); Urine Appearance Cloudy (CLEAR); Urine Color Yellow (Yellow); Urobilinogen Urine 4 mg/dL (Negative); pH Urine 8 (5-7)
[2023-11-10 06:37] LABS: Aspartate Amino Transferase 13 U/L (0-32)
[2023-11-10 06:38] LABS: UA Manual Slide Review YES
[2023-11-10 06:40] LABS: Add Urine Culture? Yes; Amorphous Sediment Urine 2+ /hpf; Bacteria Urine 3+ /hpf; Squamous Epithelial Cell Urine 0-4 /hpf (0-5)
[2023-11-10] MEDS: iohexol 350 mg/mL 500 mL Btl (per mL) IV (06:48)
--- NOTE | 2023-11-10 07:29 | PC.PHAR ---
CHART SHOWS PT IS [facility]-NOT TAKING ANY RX MEDICATIONS.
--- NOTE | 2023-11-10 09:53 | PM.CONSULT ---
Providers/Reason For Consult Consulting Physician/Specialty*: Dr. Crow Ramirez DO/General Surgery Reason for Consult*: Partial small bowel obstruction Primary Care Provider: AMISH Marti History of Present Illness History of Present Illness Laura Denny is a 43 year old female who presented to the hospital with 1 day history of periumbilical abdominal pain nausea and emesis. She reports that her last bowel movement was yesterday and she is passing a little bit of flatus. She denies any hematemesis. Her pain is dull and constant and does not radiate. Palpation and movement make the pain worse. Nothing makes pain better. Any sick contacts or recent travel. She does not think she could have eaten anything bad. CT abdomen pelvis shows ileitis with a partial small bowel obstruction Review of Systems General: Reports: 10 or more systems reviewed and unremarkable except in HPI and below Medications/Allergies Home Medications Medication Instructions Recorded Confirmed Last Taken Type cetirizine 10 mg capsule (All Day 10 mg PO DAILY PRN ALLERGIES 10/30/23 11/10/23 Unknown History Allergy (cetirizine)) Vitamin Adk 1 cap PO DAILY 11/10/23 11/10/23 Unknown History Womens Dim 1 cap PO DAILY 11/10/23 11/10/23 Unknown History Allergies Allergy/AdvReac Type Severity Reaction Status Date / Time No Known Allergies Allergy Verified 11/10/23 06:03 PFSH Acute PFSH: Medical History Chronic cystitis Uterine prolapse Hx LEEP (loop electrosurgical excision procedure), cervix, Contraception management Surgical History H/O: hysterectomy History of bunionectomy (~01/2022) Performed by Dr. Damon at [facility] in [place], [place] History of cholecystectomy History of breast augmentation H/O eye surgery 2007- Lasik bilateral eyes H/O oral surgery wisdom teeth extraction Family History Grandfather CAD (coronary artery disease) maternal Mother No problems noted. Grandmother CAD (coronary artery disease) maternal Family/Other Breast cancer maternal aunt, age onset 32-34 Rectal cancer maternal aunt Father No problems noted. Social History Smoking and tobacco/nicotine status: never used tobacco/nicotine Alcohol intake: current Alcohol intake frequency: holidays/special occasions only Alcohol type: wine and hard liquor Substance/Drug Use: never Marital status: Current occupational status: employed Vitals/I&O/Wt Last Vital Signs Temp 97.9 F 11/10/23 05:53 Pulse 88 11/10/23 06:33 Resp 14 11/10/23 06:33 BP 111/78 11/10/23 06:33 Pulse Ox 99 11/10/23 06:33 O2 Del Method Room Air 11/10/23 06:33 11/09/23 11/10/23 11/10/23 22:59 06:59 14:59 Intake Total 1000 / 1000 Balance 1000 / 1000 Weight last 48 hrs Weight 142 lb Physical Exam Narrative: General : Patient is well developed , no acute distress, oriented x3 Head : Normal cephalic, a-traumatic. Ears : Pinnae and external canal are normal. Hearing is normal. Eyes : PERRLA, Sclera and injection are normal. No conjunctival discharge. Nose : Mucous membranes are without erythema. Throat : buccal mucosa is normal, gums are without significant recession or hypertrophy. Lungs : Equal chest rise bilaterally, no use of accessory muscles, trachea is midline. Cor : Rate and rhythm are normal. Abdomen : Soft, distended, tender to palpation periumbilically no g/r/m Extremities : No edema, no cyanosis or clubbing, dorsalis pedis pulses are present bilaterally, non-tender to palpation of calves. Upper extremities are normal bilaterally. Back : non-tender to palpation, no CVA tenderness. Neuro : CN II - XII intact, Upper and lower extremities have equal and full strength Data 11/10/23 06:04 11/10/23 06:04 A&P Assessment and plan (1) Gastroenteritis: (2) Partial small bowel obstruction: (3) Sepsis: Plan N.p.o./NG tube to low intermittent wall suction Septic bolus at least 250 cc/h This is usually viral in nature, but recommend covering with Zosyn Stool studies Await return of bowel function Medical management per hospitalist Coding Level of Care Code 80766 Diagnoses Gastroenteritis K52.9 Partial small bowel obstruction K56.600 Sepsis A41.9
[2023-11-10] MEDS: sodium chloride 0.9% 1,932.3 ML 1932.3 ML IV (10:26)
[2023-11-10] MEDS: piperacillin-tazobactam 3.375 GM in sodium chloride 0.9% (plus) 50 ML IV ×2 (10:29→15:59)
[2023-11-10 10:52] LABS: Lactic Sepsis W/Reflex 0.9 mmol/L (0.5-2.2)
--- NOTE | 2023-11-10 10:55 | P.HP_ITS ---
Providers/Chief Complaint 2 Admitting Physician: Venancio Maxwell MD, hospitalist Primary Care Provider: AMISH Marti Chief Complaint: Lower abd pain History of Present Illness Laura Denny is a 43 year old female presenting with abdominal pain since yesterday. She reports this started around her umbilical area, and is still there. She has vomited twice, and been nauseous. Vomiting seems to alleviate the discomfort slightly, but it comes back. No diarrhea, and last bowel movement yesterday without constipation. No blood in vomit, or stool. No fever. No ill contacts. Denies any respiratory symptoms. Past surgical history on abdomen includes a cholecystectomy and hysterectomy. In the emergency department she got a dose of Zosyn, fluid bolus. No history of inflammatory bowel disease. Surgery has seen the patient and recommended NG placement, pain control, antibiotics, stool studies, hydration. Review of Systems 2 General: Reports: 10 or more systems reviewed and unremarkable except in HPI and below Card: Denies: chest pain Resp: Denies: dyspnea GI: Reports: abdominal pain, nausea and vomiting; Denies: hematochezia or melena Medications/Allergies Home Medications Medication Instructions Recorded Confirmed Last Taken Type cetirizine 10 mg capsule (All Day 10 mg PO DAILY PRN ALLERGIES 10/30/23 11/10/23 Unknown History Allergy (cetirizine)) Vitamin Adk 1 cap PO DAILY 11/10/23 11/10/23 Unknown History Womens Dim 1 cap PO DAILY 11/10/23 11/10/23 Unknown History Allergies Allergy/AdvReac Type Severity Reaction Status Date / Time No Known Allergies Allergy Verified 11/10/23 06:03 PFSH Acute 2 PFSH: Medical History Chronic cystitis Uterine prolapse Hx LEEP (loop electrosurgical excision procedure), cervix, Contraception management Surgical History H/O: hysterectomy History of bunionectomy (~01/2022) Performed by Dr. Damon at [facility] in [place], [place] History of cholecystectomy History of breast augmentation H/O eye surgery 2008- Lasik bilateral eyes H/O oral surgery wisdom teeth extraction Family History Grandfather CAD (coronary artery disease) maternal Mother No problems noted. Grandmother CAD (coronary artery disease) maternal Family/Other Breast cancer maternal aunt, age onset 32-34 Rectal cancer maternal aunt Father No problems noted. Social History Smoking and tobacco/nicotine status: never used tobacco/nicotine Alcohol intake: current Alcohol intake frequency: holidays/special occasions only Alcohol type: wine and hard liquor Substance/Drug Use: never Marital status: Current occupational status: employed Vitals/I&O/Wt Last Vital Signs Temp 97.9 F 11/10/23 05:53 Pulse 88 11/10/23 06:33 Resp 14 11/10/23 06:33 BP 111/78 11/10/23 06:33 Pulse Ox 99 11/10/23 06:33 O2 Del Method Room Air 11/10/23 06:33 11/09/23 11/10/23 11/10/23 22:59 06:59 14:59 Intake Total 1000 / 1000 Balance 1000 / 1000 Weight last 48 hrs Weight 64.41 kg Physical Exam 2 Narrative: General exam is a white female, reporting abdominal pain in her periumbilical area. HEENT: Atraumatic normocephalic. Oropharynx clear Neck is supple no lymphadenopathy thyromegaly Cardiovascular regular rate and rhythm without murmur. Tachycardia that was present on arrival to the emergency department has gone away Lungs clear Abdomen is soft. Tenderness in the periumbilical area. No rebound. A few bowel sounds are noted. exams deferred Extremities no sinus clubbing edema, cap refill brisk Skin no rash Neuro no obvious focal deficits Data 11/10/23 06:04 11/10/23 06:04 Other Labs: LFTs are normal I have ordered a lipase hCG is negative Albumin and calcium are normal Lactate is 0.9 Urinalysis demonstrates 5-10 reds and 5-10 whites, 3+ bacteria and 2+ leukocyte Estrace Abdominal pelvis CT which I also reviewed demonstrated segmental wall thickening mid ileal loop of the mid abdomen with proximal small bowel dilation, concern for per focal enteritis with partial small bowel obstruction. There is a fair amount of fecalization in the right colon. Blood cultures were drawn EKG demonstrates sinus rhythm, normal axis, essentially normal EKG Micro: Microbiology 11/10/23 10:12 Blood Culture - Preliminary Blood SPECIMEN COLLECTED 11/10/23 10:12 Blood Culture - Preliminary Blood SPECIMEN COLLECTED A&P Assessment and plan (1) Partial small bowel obstruction: Concern for partial small bowel obstruction, with thickening of an ileal loop. A fair amount of fecalization in the right colon Surgery is recommended NG, which has been placed Zosyn IV Stool studies per surgery IV fluids, patient received a septic bolus in the ER. LR at 125 cc an hour following this Currently does not appear septic during my exam. Lactate is normal. Heart rate has come down with fluids alone. She is not hypotensive. There is no evidence of fever. There is potential, and close follow-up of vital signs is warranted. The interventions that have already been taken in regards to antibiotics and the septic fluid bolus were completely appropriate. Obtain lipase secondary to patient's abdominal pain (2) Recurrent UTI: Patient with history of recurrent UTI Urine culture has been obtained Zosyn as above (3) Enteritis: See notations under partial wall small bowel obstruction C. difficile, O&P, stool culture order Lactate was normal Plan Full code Lovenox for DVT prophylaxis Attestations 2 Medical Necessity Statement*: Will need greater than 2 midnight stay for evaluation and treatment of partial small bowel obstruction requiring NG decompression, IV pain medication, IV antibiotics. Diagnoses Partial small bowel obstruction K56.600 Recurrent UTI N39.0 Enteritis K52.9 Time Spent (min) 55
[2023-11-10] MEDS: cetacaine Spray 5 gm Can 1 SPRAY TOPICAL (11:03)
[2023-11-10] MEDS: LORazepam 2 mg/mL INJ 1 mL 1 MG IVP (11:05)
[2023-11-10 11:24] LABS: Lipase 21 U/L (13-60)
--- NOTE | 2023-11-10 13:30 | XRR_ITS ---
PROCEDURE INFORMATION: Exam: XR Chest Exam date and time: 11/10/2023 1:34 PM Age: 43 years old Clinical indication: Device placement; Ng tube; Additional info: Ng tube placement TECHNIQUE: Imaging protocol: Radiologic exam of the chest. Views: 1 view. COMPARISON: CT abdomen pelvis w con* [id number] 11/10/2023 6:44 AM FINDINGS: Tip of the enteric tube projects over the stomach. Lungs: Unremarkable. No consolidation. Pleural spaces: Unremarkable. No pleural effusion. No pneumothorax. Heart/Mediastinum: Unremarkable. No cardiomegaly. Bones/joints: Unremarkable. XR/XR chest 1V portable [id number] IMPRESSION: No acute findings.
[2023-11-10] MEDS: enoxaparin 40 mg/0.4 mL Syringe SUBCUT (14:18)
[2023-11-10] MEDS: pantoprazole 40 mg SDV IVP (14:18)
[2023-11-10] MEDS: lactated ringers 1,000 ML 125 ML IV ×2 (14:19→21:40)
[2023-11-11] VITALS (7 sets, daily range): BP systolic 110–132; BP diastolic 70–76; PULSE 67–93; RESP 16–18; TEMP 36.6–36.9; O2SAT 96–99
[2023-11-11] MEDS: piperacillin-tazobactam 3.375 GM in sodium chloride 0.9% (plus) 50 ML IV ×3 (00:14→16:36)
[2023-11-11] MEDS: pantoprazole 40 mg SDV IVP ×2 (02:39→14:33)
[2023-11-11 05:20] LABS: Basophils % 0.6 %; Eosinophils # 0.2 10^3/uL (0.0-0.8); Eosinophils % 2.7 %; Hematocrit 36.2 % (36-47); Lymphocytes # 2.2 10^3/uL (0.8-4.8); Lymphocytes % 34.6 %; Mean Corpuscular HGB Conc 33.4 g/dL (30-55); Mean Corpuscular Hemoglobin 32.1 pg (27-33); Mean Platelet Volume 9.7 fL (7.4-10.4); Monocytes # 0.5 10^3/uL (0.2-0.9); Monocytes % 7.3 %; Neutrophils # 3.43 10^3/uL (1.8-7.7); Neutrophils % 54.5 %; Nucleated Red Blood Cells % 0 %; Platelet Count 225 10^3/cmm (157-399); Red Blood Count 3.77 10^6/uL (3.85-5.65); Red Cell Distribution Width 11.9 % (12.1-15.1)
[2023-11-11] MEDS: lactated ringers 1,000 ML 125 ML IV ×3 (05:50→22:38)
[2023-11-11 05:52] LABS: Alanine Aminotransferase 9 U/L (0-33); Albumin Level 3.5 g/dL (3.5-5.2); Alkaline Phosphatase 43 U/L (35-105); Aspartate Amino Transferase 10 U/L (0-32); Blood Urea Nitrogen 8 mg/dL (6-20); Calcium 8.4 mg/dL (8.5-10.5); Carbon Dioxide 23 mmol/L (22-29); Chloride 107 mmol/L (98-107); Creatinine Clr Calc Pharmacy 81.5554; Globulin 2.3 g/dL (1.3-4.6); Glucose 98 mg/dL (65-115); Magnesium 1.9 mg/dL (1.7-2.3); Osmolality Calculated 290 mOsm/kg (285-295); Sodium 141 mmol/L (136-145); Total Bilirubin 1.2 mg/dL (0.15-1.2); Total Protein 5.8 g/dL (6.6-8.7)
--- NOTE | 2023-11-11 08:27 | P.PN_ITS ---
Subjective 2 Subjective: No events overnight. Still with a little bit of abdominal discomfort. No nausea. Does not like the NG as it makes her throat sore. Wants her Zyrtec, and some ibuprofen. Passing flatus. No bowel movement. Medications: Reviewed: Yes Vitals/I&O/Wt Last Vital Signs Temp 97.8 F 11/11/23 08:00 Pulse 76 11/11/23 08:00 Resp 16 11/11/23 08:00 BP 125/76 11/11/23 08:00 Pulse Ox 97 11/11/23 08:00 O2 Del Method Room Air 11/11/23 08:00 11/10/23 11/11/23 11/11/23 22:59 06:59 14:59 Intake Total 3381.05 / 4431.05 1050 / 5481.05 Output Total 200 / 200 300 / 300 Balance 3181.05 / 4231.05 1050 / 5281.05 -300 / -300 Weight last 48 hrs Weight 67.903 kg Weight 64.41 kg Weight 64.41 kg Physical Exam 2 Narrative: General exam no distress, NG noted. About 300 cc out overnight Neck is supple no lymphadenopathy thyromegaly Cardiovascular regular rate and rhythm without murmur. Lungs clear Abdomen is soft. Tenderness in the periumbilical area. No rebound. A few bowel sounds are noted. Extremities no sinus clubbing edema, cap refill brisk Data 11/11/23 04:38 11/11/23 04:38 Micro: Microbiology 11/10/23 06:23 Urine Culture - Preliminary Urine,Clean Catch 11/10/23 10:12 Blood Culture - Preliminary Blood SPECIMEN COLLECTED 11/10/23 10:12 Blood Culture - Preliminary Blood SPECIMEN COLLECTED A&P Assessment and plan (1) Partial small bowel obstruction: Concern for partial small bowel obstruction, with thickening of an ileal loop. A fair amount of fecalization in the right colon Surgery is recommended NG, which has been placed Continue Zosyn IV Stool studies per surgery. Patient has not had a bowel movement IV fluids, patient received a septic bolus in the ER. LR at 125 cc an hour following this. Continue as patient is still n.p.o. Lipase was not elevated (2) Recurrent UTI: Patient with history of recurrent UTI Urine culture has been obtained Zosyn as above (3) Enteritis: See notations under partial wall small bowel obstruction C. difficile, O&P, stool culture order Lactate was normal Plan Headache. Initiate Zyrtec. Can clamp NG after giving for short while. Toradol IV x 1 secondary to headache. Full code Lovenox for DVT prophylaxis Attestations 2 Medical Necessity Statement*: Is continued hospitalization pending resolution of partial small bowel obstruction Diagnoses Partial small bowel obstruction K56.600 Recurrent UTI N39.0 Enteritis K52.9
[2023-11-11] MEDS: ketorolac 30 mg/mL INJ 15 MG IVP (08:53)
[2023-11-11] MEDS: cetirizine 10 mg Tablet PO (08:53)
--- NOTE | 2023-11-11 09:02 | PC.CHAP ---
Pastoral Care Encounter/Spiritual Assessment Type of Contact [] Declined tube roller visit [] Patient/Family/Request visit [] Outpatient visit [] Follow-up visit [] Physician referral [] Code/Alert [x] Routine visit [] Staff referral [] Actively dying [] Patient sleeping [] Family support [] [] Out of room [] Palliative care [] [] Receiving care in room [] Pre-surgical visit [] Trauma [] Long length of stay [] ICU visit [] Other: Relational/Emotional Strength [x] Patient feels connected with others/family/visitors/staff [] Distress [] Loneliness/isolation [] Abandonment Spirituality of Patient [x] Person of Bianca [] Attends [employer] of their Bianca [x] Believes in Prayer [] Reads Bible or Yazidism materials [] There are Spiritual issues to be addressed Equipment Service Engineer Interventions [x] Prayer [] Active listening [] Non-anxious presence [x] Spiritual/emotional support [] Crisis/trauma care [] Spiritual counseling [] Bereavement support [] Provided bereavement packet [] Provided Bible/devotional materials [] Provided toy/stuffed animal, coloring book to patient or family member [] Provided Communion [] Anointing/[place] [] Salvation [x] Completed spiritual assessment [] Other: Impact on Illness or Injury [] Angry [] Fearful [] Anxious [] Often cries [] Exhaustion [] Unable to work [] Unable to attend druze [] Unable to walk/stand [] Unable to read [] Unable to drive [] Unable to eat/drink [] Unable to sleep [] Unable to be with family [] Patient intubated [] Other: Summary Time spent with patient 5 min
--- NOTE | 2023-11-11 11:40 | XRR_ITS ---
PROCEDURE INFORMATION: Exam: XR Chest Exam date and time: 11/11/2023 11:56 AM Age: 43 years old Clinical indication: Device placement; Ng tube; Additional info: Verify ng tube placement TECHNIQUE: Imaging protocol: Radiologic exam of the chest. Views: 1 view. COMPARISON: CR XR chest 1V portable [id number] 11/10/2023 1:34 PM FINDINGS: Tubes, catheters and devices: Enteric tube terminates over the expected area of the stomach. Lungs: No focal consolidation. Pleural spaces: No large pleural effusion. No distinct pneumothorax. Heart/Mediastinum: Cardiomediastinal silhouette is midline and normal in size. Bones/joints: Osseous structures are unchanged. Intraperitoneal space: Surgical clips project about the right upper quadrant. XR/XR chest 1V portable [id number] IMPRESSION: 1. Enteric tube terminates over the expected area of the stomach. 2. No acute cardiopulmonary findings.
[2023-11-11] MEDS: enoxaparin 40 mg/0.4 mL Syringe SUBCUT (14:33)
--- NOTE | 2023-11-11 16:16 | P.PN_ITS ---
Subjective 2 Subjective: Patient seen and examined. She reports that she is passing some flatus. Denies any nausea, emesis and/or bowel movement abdominal pain improved Vitals/I&O/Wt Last Vital Signs Temp 97.9 F 11/12/23 04:00 Pulse 72 11/12/23 04:00 Resp 16 11/12/23 04:00 BP 93/54 11/12/23 04:00 Pulse Ox 98 11/12/23 04:00 O2 Del Method Room Air 11/12/23 04:00 11/11/23 11/12/23 11/12/23 22:59 06:59 14:59 Intake Total 1410 / 2460 1260.833 / 3720.833 Output Total 450 / 750 240 / 990 Balance 960 / 1710 1020.833 / 2730.833 Weight last 48 hrs Weight 149 lb Weight 149 lb 11.2 oz Weight 142 lb Physical Exam 2 Narrative: General: No acute distress, awake alert oriented x 3 Abdomen: Soft, nondistended, minimally tender periumbilically, no guarding or rebound Data 11/12/23 04:14 11/12/23 04:14 Micro: Microbiology 11/10/23 10:12 Blood Culture - Preliminary Blood NEGATIVE TO DATE 11/10/23 10:12 Blood Culture - Preliminary Blood NEGATIVE TO DATE 11/10/23 06:23 Urine Culture - Preliminary Urine,Clean Catch A&P Assessment and plan (1) Gastroenteritis: (2) Partial small bowel obstruction: (3) Sepsis: Plan DC'd NG tube Clear liquid diet This is usually viral in nature, but recommend covering with Zosyn Stool studies Await return of bowel function Medical management per hospitalist Attestations 2 Medical Necessity Statement*: Per primary Coding Level of Care Code 85508 Diagnoses Gastroenteritis K52.9 Partial small bowel obstruction K56.600 Sepsis A41.9
[2023-11-12] VITALS: BP 96/58; PULSE 83; RESP 17; TEMP 36.6; O2SAT 96
[2023-11-12] MEDS: piperacillin-tazobactam 3.375 GM in sodium chloride 0.9% (plus) 50 ML IV ×2 (01:30→08:28)
[2023-11-12] MEDS: pantoprazole 40 mg SDV IVP ×2 (01:30→15:10)
[2023-11-12 04:00] VITALS: BP 93/54; PULSE 72; RESP 16; TEMP 36.6; O2SAT 98
[2023-11-12 04:57] LABS: Basophils % 0.7 %; Eosinophils # 0.2 10^3/uL (0.0-0.8); Eosinophils % 3.1 %; Hematocrit 34.8 % (36-47); Lymphocytes # 2.3 10^3/uL (0.8-4.8); Lymphocytes % 41.5 %; Mean Corpuscular HGB Conc 33.9 g/dL (30-55); Mean Corpuscular Hemoglobin 32.8 pg (27-33); Mean Corpuscular Volume 96.7 fl (85-98); Mean Platelet Volume 9.7 fL (7.4-10.4); Monocytes # 0.4 10^3/uL (0.2-0.9); Monocytes % 7.4 %; Neutrophils # 2.59 10^3/uL (1.8-7.7); Neutrophils % 46.9 %; Nucleated Red Blood Cells % 0 %; Platelet Count 216 10^3/cmm (157-399); Red Cell Distribution Width 11.8 % (12.1-15.1); White Blood Count 5.52 10^3/uL (3.29-11.43)
[2023-11-12 05:25] LABS: Alanine Aminotransferase < 5 U/L (0-33); Albumin Level 3.5 g/dL (3.5-5.2); Alkaline Phosphatase 42 U/L (35-105); Anion Gap 12.5 (5-19); Aspartate Amino Transferase 10 U/L (0-32); Blood Urea Nitrogen 6 mg/dL (6-20); Calcium 7.9 mg/dL (8.5-10.5); Carbon Dioxide 26 mmol/L (22-29); Chloride 105 mmol/L (98-107); Globulin 2.4 g/dL (1.3-4.6); Glomerular Filtration Rate 92.2 mL/min (90-130); Glucose 94 mg/dL (65-115); Magnesium 1.8 mg/dL (1.7-2.3); Osmolality Calculated 287 mOsm/kg (285-295); Potassium 3.5 mmol/L (3.5-5.1); Sodium 140 mmol/L (136-145); Total Bilirubin 1.1 mg/dL (0.15-1.2); Total Protein 5.9 g/dL (6.6-8.7)
[2023-11-12] MEDS: lactated ringers 1,000 ML 125 ML IV ×2 (06:24→15:10)
[2023-11-12 08:00] VITALS: BP 104/69; PULSE 82; RESP 15; TEMP 36.6; O2SAT 98
[2023-11-12] MEDS: cetirizine 10 mg Tablet PO (08:28)
--- NOTE | 2023-11-12 08:32 | P.PN_ITS ---
Subjective 2 Subjective: Still with some abdominal pain. No nausea. Tolerating liquids without difficulty. Believes her pain is about the same as yesterday, to slightly worse. Passing flatus but no bowel movement. Medications: Reviewed: Yes Vitals/I&O/Wt Last Vital Signs Temp 97.9 F 11/12/23 04:00 Pulse 72 11/12/23 04:00 Resp 16 11/12/23 04:00 BP 93/54 11/12/23 04:00 Pulse Ox 98 11/12/23 04:00 O2 Del Method Room Air 11/12/23 04:00 11/11/23 11/12/23 11/12/23 22:59 06:59 14:59 Intake Total 1410 / 2460 1260.833 / 3720.833 Output Total 450 / 750 240 / 990 Balance 960 / 1710 1020.833 / 2730.833 Weight last 48 hrs Weight 67.585 kg Weight 67.903 kg Weight 64.41 kg Physical Exam 2 Narrative: General exam no distress, NG removed yesterday Neck is supple no lymphadenopathy thyromegaly Cardiovascular regular rate and rhythm without murmur. Lungs clear Abdomen is soft. Tenderness in the periumbilical area. No rebound. A few bowel sounds are noted. Extremities no sinus clubbing edema, cap refill brisk Data 11/12/23 04:14 11/12/23 04:14 Micro: Microbiology 11/10/23 10:12 Blood Culture - Preliminary Blood NEGATIVE TO DATE 11/10/23 10:12 Blood Culture - Preliminary Blood NEGATIVE TO DATE 11/10/23 06:23 Urine Culture - Preliminary Urine,Clean Catch A&P Assessment and plan (1) Partial small bowel obstruction: Concern for partial small bowel obstruction, with thickening of an ileal loop. A fair amount of fecalization in the right colon NG removed yesterday Continue Zosyn IV Stool studies per surgery. Patient has not had a bowel movement Continue IV fluids Lipase was not elevated Dulcolax suppository. From my understanding surgery is ordered an enema. This will be given if no results from suppository that I had already discussed with patient and nursing. Increase diet to full liquids. (2) Recurrent UTI: Patient with history of recurrent UTI Urine culture has been obtained Zosyn as above (3) Enteritis: See notations under partial wall small bowel obstruction C. difficile, O&P, stool culture ordered by surgery. Patient has not had a bowel movement. Lactate was normal Plan Headache. Continue Zyrtec. Full code Lovenox for DVT prophylaxis Attestations 2 Medical Necessity Statement*: At this point needs continued hospitalization for close monitoring in this patient with a possible partial small bowel obstruction, to determine if it is resolved. Diagnoses Partial small bowel obstruction K56.600 Recurrent UTI N39.0 Enteritis K52.9 Time Spent (min) 25
[2023-11-12] MEDS: glycerin adult supp 1 EACH PR (08:37)
[2023-11-12 11:02] LABS: C.Diff PCR (Lab) NEGATIVE (Negative)
[2023-11-12 12:00] VITALS: BP 128/76; PULSE 84; RESP 16; TEMP 36.7; O2SAT 96
--- NOTE | 2023-11-12 14:26 | P.PN_ITS ---
Subjective 2 Subjective: Patient was seen and examined this morning. Tolerating clear liquids without nausea or vomiting. She reports she is still having periumbilical abdominal pain but that it is much improved. Reports passing flatus but no bowel movement Vitals/I&O/Wt Last Vital Signs Temp 98.1 F 11/12/23 12:00 Pulse 84 11/12/23 12:00 Resp 16 11/12/23 12:00 BP 128/76 11/12/23 12:00 Pulse Ox 96 11/12/23 12:00 O2 Del Method Room Air 11/12/23 08:00 11/11/23 11/12/23 11/12/23 22:59 06:59 14:59 Intake Total 1410 / 2460 1260.833 / 3720.833 1770 / 1770 Output Total 450 / 750 240 / 990 Balance 960 / 1710 1020.833 / 2730.833 1770 / 1770 Weight last 48 hrs Weight 149 lb Weight 149 lb 11.2 oz Physical Exam 2 Narrative: General: No acute distress, awake alert oriented x 3 Abdomen: Soft, nondistended, mild periumbilical tenderness, no guarding or rebound Data 11/12/23 04:14 11/12/23 04:14 Micro: Microbiology 11/12/23 09:45 Stool Lactoferrin - Final Stool Occult Blood (FIT) - Final 11/10/23 06:23 Urine Culture - Final Urine,Clean Catch 11/10/23 10:12 Blood Culture - Preliminary Blood NEGATIVE TO DATE 11/10/23 10:12 Blood Culture - Preliminary Blood NEGATIVE TO DATE A&P Assessment and plan (1) Gastroenteritis: (2) Partial small bowel obstruction: Plan Full liquid diet liquid diet This is usually viral in nature, but recommend covering with Zosyn Stool studies Await return of bowel function Medical management per hospitalist If she is doing well this afternoon, or if she has a bowel movement before then, I will advance her to a soft diet and clear her for discharge Attestations 2 Medical Necessity Statement*: Per primary Coding Level of Care Code 27885 Diagnoses Gastroenteritis K52.9 Partial small bowel obstruction K56.600
[2023-11-12 16:00] VITALS: BP 113/81; PULSE 74; RESP 15; TEMP 36.8; O2SAT 98
--- NOTE | 2023-11-12 17:31 | PM.DCS ---
Discharge Providers Date of Admission: 11/10/23 12:31 Date of Discharge: November 12, 2023 Attending Provider at Admission: Venancio Maxwell MD Attending Provider at Discharge: Venancio Maxwell MD Primary Care Provider: AMISH Marti Diagnoses at Discharge Discharge Diagnosis (1) Gastroenteritis: Status: Resolved (2) Partial small bowel obstruction: Status: Resolved Reason for Visit Reason for Visit: Lower abd pain Hospital Course Hospital Course Patient is a 43-year-old female who presented with abdominal pain, nausea and vomiting. She did not have any diarrhea. Past medical history was not significant other than a hysterectomy and cholecystectomy in the past. White blood cell count slightly high on admission, lactate normal, CT demonstrating segmental wall thickening mid ileal loop with concern of partial small bowel obstruction. Surgery was consulted, NG placed, IV antibiotics in the form of Zosyn were initiated along with hydration. Lipase was checked which was negative. There was concern of potential UTI as well, and stool studies were ordered. With this treatment patient gradually improved and nausea improved. She was ultimately started on some clear liquids that were advanced through the next several days, and was tolerating a soft diet prior to discharge on November 11. At that time she still describes some pressure discomfort in her abdomen, but overall condition and discomforts had improved. It was thought she could follow-up with her primary care provider, finished a short course of Cipro and Flagyl. Precautions given regarding diarrhea following antibiotics. She is to return for any worsening. She was given opportunity ask questions, and agreed with the plan. Physical Exam Narrative: See exam done earlier in the day Discharge Data Studies Completed and Pending Completed Studies During Hospitalization Category Date Time Status CT abdomen pelvis w con* [id number] Stat Cat Scan 11/10/23 06:25 Completed XR chest 1V portable [id number] Stat Exams 11/10/23 13:30 Completed XR chest 1V portable [id number] Stat Exams 11/11/23 11:40 Completed Pending at discharge Category Date Time Status Blood Culture Stat Lab 11/10/23 10:12 Results CBC Auto Diff [Complete Blood Count w/Auto] AM LABS Lab 11/13/23 04:00 Ordered CMP [Comprehensive Metabolic Panel] AM LABS Lab 11/13/23 04:00 Ordered OVA and Parasites, Conc and PE Routine Lab 11/10/23 09:53 Ordered Salmonella / Shigella / Campy Routine Lab 11/10/23 09:53 Ordered Radiology Impressions Abdomen/Pelvis CT 11/10/23 06:25 IMPRESSION: Focal segmental wall thickening of mid ileal loop in mid abdomen with proximal small bowel dilatation containing air-fluid levels. Focal acute enteritis with partial small bowel obstruction suspected. Recommend surgical consultation. Recommend short-term follow-up study/small bowel follow-through study. Chest X-Ray 11/11/23 11:40 IMPRESSION: 1. Enteric tube terminates over the expected area of the stomach. 2. No acute cardiopulmonary findings. Laboratory Results WBC 5.52 10^3/uL (3.29-11.43) 11/12/23 04:14 RBC 3.60 10^6/uL (3.85-5.65) L 11/12/23 04:14 Hgb 11.80 g/dL (11.27-16.99) 11/12/23 04:14 Hct 34.8 % (36-47) L 11/12/23 04:14 MCV 96.7 fl (85-98) 11/12/23 04:14 MCH 32.8 pg (27-33) 11/12/23 04:14 MCHC 33.9 g/dL (30-55) 11/12/23 04:14 RDW 11.8 % (12.1-15.1) L 11/12/23 04:14 Plt Count 216 10^3/cmm (157-399) 11/12/23 04:14 MPV 9.7 fL (7.4-10.4) 11/12/23 04:14 Neut % (Auto) 46.9 % 11/12/23 04:14 Lymph % (Auto) 41.5 % 11/12/23 04:14 Person % (Auto) 7.4 % 11/12/23 04:14 Eos % (Auto) 3.1 % 11/12/23 04:14 Baso % (Auto) 0.7 % 11/12/23 04:14 Neut # (Auto) 2.59 10^3/uL (1.8-7.7) 11/12/23 04:14 Lymph # (Auto) 2.3 10^3/uL (0.8-4.8) 11/12/23 04:14 Person # (Auto) 0.4 10^3/uL (0.2-0.9) 11/12/23 04:14 Eos # (Auto) 0.2 10^3/uL (0.0-0.8) 11/12/23 04:14 Baso # (Auto) 0.0 10^3/uL (0.0-0.1) 11/12/23 04:14 Nucleated RBC % (auto) 0 % 11/12/23 04:14 Nucleated RBCs # 0.0 /100WBC 11/12/23 04:14 Sodium 140 mmol/L (136-145) 11/12/23 04:14 Potassium 3.5 mmol/L (3.5-5.1) 11/12/23 04:14 Chloride 105 mmol/L (98-107) 11/12/23 04:14 Carbon Dioxide 26 mmol/L (22-29) 11/12/23 04:14 Anion Gap 12.5 (5-19) 11/12/23 04:14 BUN 6 mg/dL (6-20) 11/12/23 04:14 Creatinine 0.7 mg/dL (0.5-0.9) 11/12/23 04:14 GFR Calculation 92.2 mL/min (90-130) 11/12/23 04:14 Glucose 94 mg/dL (65-115) 11/12/23 04:14 Calculated Osmolality 287 mOsm/kg (285-295) 11/12/23 04:14 Lactic Acid 0.9 mmol/L (0.5-2.2) 11/10/23 10:12 Calcium 7.9 mg/dL (8.5-10.5) L 11/12/23 04:14 Magnesium 1.8 mg/dL (1.7-2.3) 11/12/23 04:14 Total Bilirubin 1.1 mg/dL (0.15-1.2) 11/12/23 04:14 AST 10 U/L (0-32) 11/12/23 04:14 ALT < 5 U/L (0-33) 11/12/23 04:14 Alkaline Phosphatase 42 U/L (35-105) 11/12/23 04:14 Total Protein 5.9 g/dL (6.6-8.7) L 11/12/23 04:14 Albumin 3.5 g/dL (3.5-5.2) 11/12/23 04:14 Globulin 2.4 g/dL (1.3-4.6) 11/12/23 04:14 Lipase 21 U/L (13-60) 11/10/23 06:04 HCG, Qual Negative (Negative) 11/10/23 06:04 Urine Color Yellow (Yellow) 11/10/23 06:23 Urine Appearance Cloudy (CLEAR) A 11/10/23 06:23 Urine pH 8 (5-7) A 11/10/23 06:23 Ur Specific [place] 1.015 (1.005-1.030) 11/10/23 06:23 Urine Protein Neg (Negative) 11/10/23 06:23 Urine Glucose (UA) Norm (Normal) 11/10/23 06:23 Urine Ketones 1+ (Negative) H 11/10/23 06:23 Urine Blood 2+ (Negative) H 11/10/23 06:23 Urine Nitrate Negative (Negative) 11/10/23 06:23 Urine Bilirubin Neg (Negative) 11/10/23 06:23 Urine Urobilinogen 4 mg/dL (Negative) H 11/10/23 06:23 Ur Leukocyte Esterase 2+ (Negative) H 11/10/23 06:23 Urine RBC 5-10 /hpf (0-2) H 11/10/23 06:23 Urine WBC 5-10 /hpf (0-5) H 11/10/23 06:23 Ur Squamous Epith Cells 0-4 /hpf (0-5) H 11/10/23 06:23 Amorphous Sediment 2+ /hpf 11/10/23 06:23 Urine Bacteria 3+ /hpf (NONE) H 11/10/23 06:23 C. difficile (PCR) Negative (Negative) 11/12/23 09:45 Vitals Last Vital Signs Temp 98.3 F 11/12/23 16:00 Pulse 74 11/12/23 16:00 Resp 15 11/12/23 16:00 BP 113/81 11/12/23 16:00 Pulse Ox 98 11/12/23 16:00 O2 Del Method Room Air 11/12/23 16:00 Discharge Plan Discharge Patient Disposition: Home Condition: Stable Prescriptions: New Cipro 500 mg tablet 500 mg PO BID Qty: 10 0RF metronidazole 500 mg tablet 500 mg PO TID Qty: 15 0RF Continued All Day Allergy (cetirizine) 10 mg capsule 10 mg PO DAILY PRN (Reason: ALLERGIES) Vitamin Adk 1 cap PO DAILY Womens Dim 1 cap PO DAILY Discharge Orders: Discharge Order (Routine); Ordered 11/12/23 Ordered By: Venancio Maxwell Referrals: Aidan Blanca MD [Physician] - 2 weeks (We have notified your physician's clinic of the need for a follow-up appointment to be scheduled. If you have not heard from them within the next 2 business days, please call them directly. ) Alexandra Palacios, DATA COLLECTION TECHNICIAN [Primary Care Provider] - 4-7 days Discharge Diet: Soft Mechanical Discharge Activity: Increase activity as tolerated Patient Instructions: Ciprofloxacin (By mouth), Metronidazole (By mouth), Bowel Obstruction (GEN), Enteritis (GEN), Opioid Safety, Pain Management Activity Restrictions/Additional Instructions: Take all medicine as prescribed Encourage fluids For any fever, persistent diarrhea, worsening abdominal pain return Discharge Attestations Time Spent in Discharge Care*: greater than 30 min Quality Metrics Clinical Quality Measures [ No reported AMI, CVA or VTE this stay] Coding Level of Care Code 59182 Total time (in minutes) for Discharge: 31 Diagnoses Gastroenteritis K52.9 Partial small bowel obstruction K56.600 Time Spent (min) 31
[2023-11-12 18:41] VITALS: BP 113/81; PULSE 74; RESP 15; TEMP 36.8; O2SAT 98
== END 2023-11-12 18:37 | disposition home or self-care (01) | DRG 390 ==
LOC: ER 12:02 → MEDSURG 12:32
PROVIDERS: Surgery; Admitting Provider Internal Medicine; Emergency Provider Family Medicine; PCP Nurse Practitioner; Visit Provider Internal Medicine
DX: K56.690 Other partial intestinal obstruction (principal); K52.9 Noninfective gastroenteritis and colitis, unspecified; R51.9 Headache, unspecified; Z87.440 Personal history of urinary (tract) infections
CPT/HCPCS: 36415; 71045; 74177; 80053; 81003; 81015; 82274; 83605; 83630; 83690; 83735; 84703; 85025; 87040; 87086; 87493; 93005; 96365; 96372; 96375; 99285; J1650; J1885; J2060; J2405; J2470; J2543; J7030; J7120; Q9967

== ENCOUNTER → 2023-12-09 12:50 | Outpatient (BNVA) | payer OTHER, SELFPAY | PROVIDERS: PCP Nurse Practitioner; Visit Provider Surgery | DX: Z09 Encounter for follow-up examination after completed treatment for conditions other than malignant neoplasm (principal) | CPT/HCPCS: 99213 ==

== ENCOUNTER → 2024-02-04 12:44 | Outpatient (BNVA) | payer OTHER, SELFPAY | PROVIDERS: PCP Nurse Practitioner; Visit Provider Nurse Practitioner Family | DX: D22.5 Melanocytic nevi of trunk (principal); L81.4 Other melanin hyperpigmentation; L57.8 Other skin changes due to chronic exposure to nonionizing radiation; L82.1 Other seborrheic keratosis; D17.1 Benign lipomatous neoplasm of skin and subcutaneous tissue of trunk; B07.8 Other viral warts; L53.8 Other specified erythematous conditions; L29.89 Other pruritus; L91.8 Other hypertrophic disorders of the skin; L57.0 Actinic keratosis | CPT/HCPCS: 11200; 17000; 17110; 99213 ==

== ENCOUNTER 2024-04-18 07:55 | Outpatient (CLI) | payer OTHER, SELFPAY ==
--- NOTE | 2024-04-18 07:57 | MM_ITS ---
WS: [id number] BILATERAL SCREENING DIGITAL BREAST MAMMOGRAPHY WITH KEZIA DISPLACEMENT VIEWS. CAD PERFORMED. HISTORY: SCREENING COMPARISON: 04/17/2023 Bilateral craniocaudal and mediolateral oblique views are performed with tomosynthesis and SM. Kezia displacement views in CC and MLO projection also performed. Breasts composition: There are scattered areas of fibroglandular density. Retropectoral implants are intact. No suspicious masses or calcifications. No distortion or mass. MM/MM scr BI tomosynthesis [id number] IMPRESSION: BI-RADS: 2 - Benign. FOLLOW-UP: 1 Year Follow-up
== END 2024-04-18 07:56 | disposition home or self-care (01) ==
LOC: RAD 07:56
PROVIDERS: PCP Nurse Practitioner; Visit Provider Nurse Practitioner
DX: Z12.31 Encounter for screening mammogram for malignant neoplasm of breast (principal); R92.323 Mammographic fibroglandular density, bilateral breasts; Z98.82 Breast implant status
CPT/HCPCS: 77063; 77067

== ENCOUNTER 2024-09-15 09:03 | Inpatient (IN) | payer OTHER, SELFPAY ==
--- OUTSIDE RECORDS SUMMARY | 2023-09-17 03:30 | XMS_ITS | Encounter Summary ---
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 This section includes the names of all active insurance providers for the patient. Insurance Provider Type of Coverage Plan Name Start of Policy Coverage End of Policy Coverage Group Number Member ID Insurance Provider's Telephone Number Policy Almanzar's Name Patient's Relationship to Policy Almanzar [facility] Mar 23, 2023 [id number] LUIS BELTRÁN PATIENT [facility] Mar 23, 2023 [id number] [phone] LUIS BELTRÁN PATIENT [employer] RX PRESCRIPT ION RX PLAN Mar 23, 2023 UNITEDR X [id number] [phone] LUIS BELTRÁN PATIENT [facility] RX PRESCRIPT ION RX PLAN Mar 23, 2019 [facility] [id number] [phone] LEROY AREVALO PATIENT [facility] RX [id number] PRESCRIPT ION [facility] Mar 23, 2023 UNITEDR X [id number] [phone] LUIS BELTRÁNJose PATIENT [facility] Mar 23, 2019 [id number] [phone] SIRAEL RODRIGUES PATIENT [facility] POINT OF SERVICE [facility] Mar 23, 2023 [id number] LUIS BELTRÁN PATIENT [facility] * HIGH DEDUCTIBL E HEALTH PLAN W/HEALTH SAVINGS ACCOUNT [facility] CDHP HSA Mar 23, 2023 [id number] [phone] LUIS BELTRÁN PATIENT Selected Encounter This section includes the information on record at [place] for the Encounter. Date/Time Encounter Type Encounter Description Reason Provider Source Sep 17, 2023 08:30 AM OFF/OP EST JULY X REQ PHY/QHP PRIMARY CARE/MEDICINE ICD-10-CM N20.0 Calculus of kidney ASHLEY RICKS Juan Encounter Template Text not used by [place] Assessments - Encounter Diagnoses This section includes the primary and secondary diagnoses documented for the Encounter. Date/Time Primary/Secondary Diagnosis Diagnosis Name Provider Source Oct 27, 2023 10:13 AM PRIMARY Calculus of kidney LUIS FERNANDO RICKS [facility] Plan of Treatment: Future Appointments (+ 6 months) and Future Tests (+/- 45 days) The Plan of Treatment section includes future care activities for the patient from all [place] treatmentfacilities. This section includes future appointments and future orders which are active, pending or scheduled. Future Appointments This section includes appointments that were scheduled to occur 6 months from the date of the Encounter, up to a maximum of 20 appointments. The data comes from all [place] treatment facilities. Appointment Date/Time Appointment Type Appointme nt Facility Name Oct 13, 2023 07:00 AM AMBULATORY - NONE [place] [facility] Nov 16, 2023 09:00 AM AMBULATORY - MEDICINE [facility] Nov 17, 2023 10:15 AM AMBULATORY - MEDICINE [place] [facility] Nov 19, 2023 02:30 PM AMBULATORY - MEDICINE [facility] Dec 09, 2023 01:15 PM AMBULATORY - SURGERY [place] [facility] Feb 04, 2024 01:00 PM AMBULATORY - MEDICINE [place] [facility] Feb 09, 2024 08:30 AM AMBULATORY - MEDICINE [facility] Mar 10, 2024 08:00 AM AMBULATORY - MEDICINE [place] [facility] Active, Pending, and Scheduled Orders This section includes a listing of several types of active, pending, and scheduled orders, including clinic medications orders, diagnostic test orders, procedure orders and consult orders; where the start date of the order is 45 days before the date of the Encounter or 45 days after the date of theEncounter. The data comes from all [place] treatment facilities. Test Date/Time Test Type Test Details Facility Name Sep 10, 2023 02:26 PM Laboratory - Chemi stry Order POC UA (STL-PB-MA) URINE [facility] Sep 17, 2023 09:08 AM Laboratory - Chemi stry Order POC UA (STL-PB-MA) URINE [facility] Lab Results: +/- 30 days of the encounter This section includes the Chemistry and Hematology Lab Results on record with [place] for the patient. Radiology Reports and Pathology Reports are provided separately, in subsequent sections. Lab Results This section contains the Chemistry/Hematology Results that were resulted 30 days before or 30 daysafter the date of the Encounter. Date/Time Source Result Type Result - Unit Interpretation Reference Range Specimen Type Comment Sep 17, 2023 09:10 AM [facility] POC UA (STL-PB-MA) URINE Specimen Type: URINE No comment entered. Ordering Provider: TALIB WARD Report Released Date/Time: Sep 17, 2023 09:17 AM Reporting Lab: [facility] [address] [facility] [address] Performing Lab: [facility] [address] [facility] [address] PROTEIN POC UA Negative mg/dL Negative BLOOD POC UA Trace-lysed Negative LEUKOCYTES POC UA Trace Negative COLOR POC UA Yellow YELLOW SPEC GRAV POC UA 1.010 1.005-1.030 UROBILINOGEN POC UA 0.2 {Dionicio'U}/dL 0 .1-1.0 BILIRUBIN POC UA Negative Negative KETONES POC UA Negative mg/dL Negative GLUCOSE POC UA Negative mg/dL Negative pH POC UA 6.5 5.0-8.0 NITRITE POC UA Negative Negative CLARITY POC UA Clear CLEAR Sep 10, 2023 02:30 PM [facility] POC UA (STL-PB-MA) URINE Specimen Type: URINE No comment entered. Ordering Provider: TALIB WARD Report Released Date/Time: Sep 10, 2023 02:37 PM Reporting Lab: [facility] [address] [facility] [address] Performing Lab: [facility] [address] [facility] [address] PROTEIN POC UA Negative mg/dL Negative BLOOD POC UA Trace-intact Negative LEUKOCYTES POC UA Small Negative COLOR POC UA Yellow YELLOW SPEC GRAV POC UA 1.015 1.005-1.030 UROBILINOGEN POC UA 0.2 {Dionicio'U}/dL 0 .1-1.0 BILIRUBIN POC UA Negative Negative KETONES POC UA Negative mg/dL Negative GLUCOSE POC UA Negative mg/dL Negative pH POC UA 7.0 5.0-8.0 NITRITE POC UA Negative Negative CLARITY POC UA Clear CLEAR Sep 10, 2023 02:26 PM [facility] URINALYSIS W/ CX REFLEX (STL-PB) URINE Specim en Type: URINE No comment entered. Ordering Provider: TALIB WARD Report Released Date/Time: Sep 10, 2023 02:25 PM Reporting Lab: [place] [facility] [address] [place] [place] [address] Performing Lab: [place] [facility] [address] [facility] [address] URINE COLOR Light Yellow Yellow U.BILIRUBIN NEGATIVE mg/dL Negative U.PH 7.0 5.0-8.0 URINE WBC/HPF 9 /[HPF] H 0-5 URINE RBC/HPF 3 /[HPF] 0-5 APPEARANCE CLEAR Clear U.NITRITE NEGATIVE mg/dL Negative SQUAMOUS EPITH. 6 /[HPF] H 0-5 MUCUS RARE /[LPF] Negative-Rare HYALINE CASTS 1 /[LPF] 0-5 URN.GLUCOSE NORMAL mg/dL Negative URN.PROTEIN NEGATIVE mg/dL Negative-20 URN.UROBILINOGEN NORMAL mg/dL Normal URN.BLOOD NEGATIVE mg/dL Negative-Trace URN.KETONES NEGATIVE mg/dL Negative-Trac e URN.LEUK.EST. 500 H Negative-Trace URN.SPECIFIC GRAVITY 1.010 1.005-1.029 Vital Signs: All taken on the encounter date This section contains inpatient and outpatient Vital Signs collected on the date of the Encounter. Date/Time Temperature Pulse Blood Pressure Respiratory Rate SP02 Pain Height Weight Body Mass Index Source Sep 17, 2023 09:10 AM 97.8 79 105/68 99 149.0 27 [facility] Social History: Smoking Status (Most current) and Tobacco Use (All prior to encounter date) This section includes the most current, and the historical, smoking and tobacco- related health factors from the [place] facility where the Encounter took place. Current Smoking Status This section includes the most current smoking, or tobacco-related health factor, from the [place] facility where the Encounter took place. Date/Time Current Smoking Status Comment Benoit ity Sep 16, 2022 08:30 AM VA-TOBACCO NEVER USED [facility] Tobacco Use History This section includes a history of the smoking, or tobacco-related health factors, that were collected on or before the date of the Encounter. The data comes from the [place] facility where the Encounter took place. Date/Time Smoking Status/Tobacco Use Comment F acility May 10, 2021 09:00 AM VA-TOBACCO NEVER USED [facility] Apr 11, 2020 09:07 AM VA-TOBACCO NEVER USED [facility] Sep 17, 2018 04:17 PM VA-TOBACCO NEVER USED [facility] Encounter Notes: All associated encounter notes This section contains the clinical notes associated to the Encounter. Date/Time Encounter Note(s) Provider Source Sep 17, 2023 09:25 AM NURSING PROGRESS N OTE: LOCAL TITLE: NURSING NOTE PB STANDARD TITLE: NURSING PROGRESS NOTE DATE OF NOTE: SEP 17, 2023@09:25 ENTRY DATE: SEP 17, 2023@09:25:38 AUTHOR: EDER RICKS EXP COSIGNER: URGENCY: STATUS: COMPLETED This is a 42 year old FEMALE with known Allergies as noted: Patient has answered NKA C/C: reported to the clinic for lower abdomen pain follow up. S: stated that last week she was seen in the clinic and was told to come back in one for follow up on lower abdomen pain. [place] stated that the pain is still there but not as bad. stated that it is lower abdomen/pelvic pain that comes and goes. Denied fever. Rated pain 2 out of 10. On the following Active Medications: Active Outpatient Medications (including Supplies): Active Outpatient Medications Status 1) CETIRIZINE HCL 10MG TAB TAKE ONE TABLET BY MOUTH ONCE ACTIVE A DAY NEEDED FOR ALLERGY SYMPTOMS 2) FLUTICASONE PROP 50MCG 120D NASAL INHL INSTILL 1 ACTIVE SPRAY IN NOSTRIL(S) EVERY MORNING FOR RHINITIS (MUST BE USED DIRECTED FOR MINIMUM OF 21 DAYS TO PROVIDE ADEQUATE BENEFITS) 3) MICONAZOLE NITRATE 2% TOP PWDR APPLY LIGHTLY TO ACTIVE AFFECTED AREA(S) DIRECTED APPLY TO FEET (SHOES) MONTHLY NEEDED. 4) TRIAMCINOLONE ACETONIDE 0.1% CREAM APPLY SPARINGLY TO ACTIVE AFFECTED AREA(S) DIRECTED APPLY TO BACK AND CHEST NEEDED O: ambulated into the clinic without assistance. Steady gait. Alert and oriented x4. Unlabored breathing. A/P: Reviewed with Provider. POC urine ordered. Provider advised that there is a trace amount of blood in urine that may be from a possible kidney stone. Provider advised no infection noted on POC urine. [place] advised to drink plenty of water to help flush kidney stone. advised if pain or symptoms get worse to report to the ER. [place] voiced understanding. [place] escorted to the lobby in stable condition. RTC: as needed /griselda/ Eder Ricks RN Channing NATHANAEL, JRAH [facility] Signed: 09/17/2023 14:01 Receipt Acknowledged By: 09/17/2023 21:21 /griselda/ AMISH Marti-SHONA Channing, EDER SHEIKH [facility] RIVERTino HUFFMAN
--- OUTSIDE RECORDS SUMMARY | 2023-11-16 04:00 | XMS_ITS | Encounter Summary ---
Author Name [facility] [place] [facility] [place] Address [address] [place] [address] Care Team Providers Care Apprentice Technician Name Role Phone ABHI GRANADOS Primary Care [...] Policy Almanzar [facility] Mar 23, 2023 [id number] LUIS BELTRÁN PATIENT [facility] /UBH* M[facility] Mar 23, 2023 [id number] [phone] LUIS BELTRÁN PATIENT [facility] RX PRESCRIPT ION RX PLAN Mar 23, 2023 UNITEDR X [id number] [phone] LUIS BELTRÁN PATIENT [facility] RX PRESCRIPT ION RX PLAN Mar 23, 2019 [facility] [id number] [phone] LEROY AREVALO PATIENT [facility] RX [id number] PRESCRIPT ION [facility] Mar 23, 2023 UNITEDR X [id number] [phone] LUIS BELTRÁNJose PATIENT [facility] Mar 23, 2019 [id number] [phone] ISRAEL RODRIGUES PATIENT [facility] POINT OF SERVICE [facility]IC [facility] H Mar 23, 2023 [id number] LUIS BELTRÁN PATIENT [facility] * HIGH DEDUCTIBL E HEALTH PLAN W/[facility] Mar 23, 2023 [id number] [phone] LUIS BELTRÁN PATIENT Selected Encounter This section includes the information on record at [place] for the Encounter. Date/Time Encounter Type Encounter Description Reason Provider Source Nov 16, 2023 09:00 AM OFF/OP EST JULY X REQ PHY/QHP PRIMARY CARE/MEDICINE ICD-10-CM K59.09 Other constipation TOMEKA RICKS Juan Encounter Template Text not used by [place] Assessments - Encounter Diagnoses This section includes the primary and secondary diagnoses documented for the Encounter. Date/Time Primary/Secondary Diagnosis Diagnosis Name Provider Source Nov 24, 2023 12:59 PM PRIMARY Other constipation ASHLEY RICKS [facility] Plan of Treatment: Future Appointments (+ 6 months) and Future Tests (+/- 45 days) The Plan of Treatment section includes future care activities for the patient from all [place] treatmentfacilities. This section includes future appointments and future orders which are active, pending or scheduled. Future Appointments This section includes appointments that were scheduled to occur 6 months from the date of the Encounter, up to a maximum of 20 appointments. The data comes from all [place] treatment facilities. Appointment Date/Time Appointment Type Appointme nt Facility Name Nov 17, 2023 10:15 AM AMBULATORY - MEDICINE [facility] [facility] Nov 19, 2023 02:30 PM AMBULATORY - MEDICINE [facility] Dec 09, 2023 01:15 PM AMBULATORY - SURGERY [facility] Feb 04, 2024 01:00 PM AMBULATORY - MEDICINE [facility] [facility] Feb 09, 2024 08:30 AM AMBULATORY - MEDICINE [facility] Mar 10, 2024 08:00 AM AMBULATORY - MEDICINE [facility] [facility] Mar 30, 2024 09:30 AM AMBULATORY - MEDICINE [facility] Apr 06, 2024 10:20 AM AMBULATORY - MEDICINE [place] [facility] Apr 18, 2024 08:00 AM AMBULATORY - NEUROLOGY [place] Apr 26, 2024 08:00 AM AMBULATORY - NONE [facility] Active, Pending, and Scheduled Orders This section includes a listing of several types of active, pending, and scheduled orders, including clinic medications orders, diagnostic test orders, procedure orders and consult orders; where the start date of the order is 45 days before the date of the Encounter or 45 days after the date of theEncounter. The data comes from all [place] treatment facilities. Test Date/Time Test Type Test Details Facility Name Nov 16, 2023 09:57 AM Laboratory - Chemi stry Order POC UA (STL-PB-MA) URINE SP [facility] Lab Results: +/- 30 days of the encounter This section includes the Chemistry and Hematology Lab Results on record with [place] for the patient. Radiology Reports and Pathology Reports are provided separately, in subsequent sections. Lab Results This section contains the Chemistry/Hematology Results that were resulted 30 days before or 30 daysafter the date of the Encounter. Date/Time Source Result Type Result - Unit Interpretation Reference Range Specimen Type Comment Nov 19, 2023 03:11 PM [facility] URINALYSIS W/ CX REFLEX (STL-PB) URINE Specim en Type: URINE No comment entered. Ordering Provider: PHANI WARD Report Released Date/Time: Nov 19, 2023 03:08 PM Reporting [facility] [address] [facility] [place] [facility] [id number] Performing Lab: [place] [facility] [address] [facility] [place] [facility] [address] URINE COLOR Light Yellow Yellow U.BILIRUBIN NEGATIVE mg/dL Negative U.PH 6.5 5.0-8.0 URINE WBC/HPF <1 /[HPF] 0-5 URINE RBC/HPF 1 /[HPF] 0-5 APPEARANCE CLEAR Clear U.NITRITE NEGATIVE mg/dL Negative SQUAMOUS EPITH. 3 /[HPF] 0-5 URN.GLUCOSE NORMAL mg/dL Negative URN.PROTEIN NEGATIVE mg/dL Negative-20 URN.UROBILINOGEN NORMAL mg/dL Normal URN.BLOOD NEGATIVE mg/dL Negative-Trace URN.KETONES NEGATIVE mg/dL Negative-Trac e URN.LEUK.EST. 25 H Negative-Trace URN.SPECIFIC GRAVITY 1.009 1.005-1.029 Nov 16, 2023 10:10 AM [facility] POC UA (STL-PB-MA) URINE Specimen Type: URINE No comment entered. Ordering Provider: TALIB WARD Report Released Date/Time: Nov 16, 2023 10:16 AM [facility] [address] [facility] [phone] Performing Lab: [facility] [address] [facility] [id number] PROTEIN POC UA 30 mg/dL Negative BLOOD POC UA Trace-intact Negative LEUKOCYTES POC UA Small Negative COLOR POC UA Brown YELLOW SPEC GRAV POC UA >=1.030 1.005-1.030 UROBILINOGEN POC UA 1.0 {Dionicio'U}/dL 0 .1-1.0 BILIRUBIN POC UA Negative Negative KETONES POC UA Trace mg/dL Negative GLUCOSE POC UA Negative mg/dL Negative pH POC UA 6.0 5.0-8.0 NITRITE POC UA Positive Negative CLARITY POC UA Clear CLEAR Social History: Smoking Status (Most current) and Tobacco Use (All prior to encounter date) This section includes the most current, and the historical, smoking and tobacco- related health factors from the [place] facility where the Encounter took place. Current Smoking Status This section includes the most current smoking, or tobacco-related health factor, from the [place] facility where the Encounter took place. Date/Time Current Smoking Status Comment Benoit guzman Sep 16, 2022 08:30 AM VA-TOBACCO NEVER USED [facility] Tobacco Use History This section includes a history of the smoking, or tobacco-related health factors, that were collected on or before the date of the Encounter. The data comes from the [place] facility where the Encounter took place. Date/Time Smoking Status/Tobacco Use Comment F acility May 10, 2021 09:00 AM VA-TOBACCO NEVER USED [facility] Apr 11, 2020 09:07 AM VA-TOBACCO NEVER USED [facility] Sep 17, 2018 04:17 PM VA-TOBACCO NEVER USED [facility] Encounter Notes: All associated encounter notes This section contains the clinical notes associated to the Encounter. Date/Time Encounter Note(s) Provider Source Nov 16, 2023 02:24 PM GENERAL MEDICINE N OTE: LOCAL TITLE: General Note PB STANDARD TITLE: GENERAL MEDICINE NOTE DATE OF NOTE: NOV 16, 2023@14:24 ENTRY DATE: NOV 16, 2023@14:24:36 AUTHOR: TALIB WARD EXP COSIGNER: URGENCY: STATUS: COMPLETED Bactrim DS one po bid for 7 days #14 [facility] /es/ Talib Ward [facility], [facility] Signed: 11/16/2023 14:25 TALIB WARD [facility] Nov 16, 2023 09:15 AM NURSING PROGRESS N OTE: LOCAL TITLE: NURSING NOTE PB STANDARD TITLE: NURSING PROGRESS NOTE DATE OF NOTE: NOV 16, 2023@09:15 ENTRY DATE: NOV 16, 2023@14:44:57 AUTHOR: EDER RICKS EXP COSIGNER: URGENCY: STATUS: COMPLETED NURSING NOTE PB Has ADDENDA This is a 43 year old FEMALE with known Allergies as noted: Patient has answered NKA C/C: Donal reported to the clinic for Hospital follow up/constipation/uti S: Donal stated that she was recently in the hospital for a bowel blockage. Bristow stated that she has had one small bowel movement since and she is concerned that she may be getting another bowel blockage. stated that she is passing gas. Donal stated that she has only been eating a soft diet but has not been taking anything for constipation. Donal stated that she has one more day of cipro today. Donal also wanted to be rechecked for UTI due to urine is dark and she is drinking one cup of coffee a day and water only. On the following Active Medications: Active Outpatient Medications (including Supplies): Active Outpatient Medications Status 1) CETIRIZINE HCL 10MG TAB TAKE ONE TABLET BY MOUTH ONCE ACTIVE A DAY NEEDED FOR ALLERGY SYMPTOMS 2) FLUTICASONE PROP 50MCG 120D NASAL INHL INSTILL 1 ACTIVE SPRAY IN NOSTRIL(S) EVERY MORNING FOR RHINITIS (MUST BE USED DIRECTED FOR MINIMUM OF 21 DAYS TO PROVIDE ADEQUATE BENEFITS) O: ambulated into the clinic without assistance. Steady gait. Alert and oriented x4. Unlabored breathing. Hypoactive bowel sounds. abdomen soft and non- tender A/P: Reviewed with Provide. Point of care urine. Bristow advised that she is still positive for UTI. advised that the Provider will call out Bactrim to [facility] in [place]. Bristow voiced understanding. Bristow advised to take MiraLAX, drink plenty of water, and to walk to help with bowel movements. voiced understanding. escorted to the lobby in stable condition. RTC: as needed /griselda/ Eder Ricks RN [facility], [facility] Signed: 11/16/2023 15:21 Receipt Acknowledged By: 11/18/2023 20:28 /griselda/ [facility]2023 ADDENDUM STATUS: COMPLETED Per [facility] Directive 1605.06, wristband documentation: Patient wristband was removed and destroyed by (staff name) FELIX Martin and placed in the designated [email or web address] bin. /griselda/ Eder Ricks RN [place] [facility], [facility] Signed: 11/16/2023 15:23 EDER RICKS [facility]
--- OUTSIDE RECORDS SUMMARY | 2023-11-19 09:30 | XMS_ITS | Encounter Summary ---
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 Name Role Phone ABHI GRANADOS Primary Care [...] Policy Almanzar [facility] Mar 23, 2023 [id number] [phone] LUIS BELTRÁN PATIENT [facility]* [facility] Mar 23, 2023 [id number] [phone] LUIS BELTRÁN PATIENT [facility] RX PRESCRIPT ION RX PLAN Mar 23, 2023 UNITEDR X [id number] [phone] LUIS BELTRÁN PATIENT [facility] RX PRESCRIPT ION RX PLAN Mar 23, 2019 [facility] [id number] [phone] LEROY AREVALO PATIENT [facility] RX [id number] PRESCRIPT ION [facility] Mar 23, 2023 UNITEDR X [id number] [phone] LUIS BELTRÁN ANTON PATIENT [facility] Mar 23, 2019 [id number] [phone] ISRAEL RODRIGUES PATIENT [facility] POINT OF SERVICE [facility] Mar 23, 2023 [id number] [phone] LUIS BELTRÁNJose PATIENT [facility] * HIGH DEDUCTIBL E HEALTH PLAN W/HEALTH SAVINGS ACCOUNT [facility] CDHP HSA Mar 23, 2023 [id number] [phone] LUIS BELTRÁN PATIENT Selected Encounter This section includes the information on record at [place] for the Encounter. Date/Time Encounter Type Encounter Description Reason Provider Source Nov 19, 2023 02:30 PM OFFICE O/P EST LOW 20 MIN PRIMARY CARE/MEDICINE ICD-10-CM K56.600 Partial intestinal obstruction, unspecified as to cause MAGED WARD E Encounter Template Text not used by [place] Assessments - Encounter Diagnoses This section includes the primary and secondary diagnoses documented for the Encounter. Date/Time Primary/Secondary Diagnosis Diagnosis Name Provider Source Nov 27, 2023 09:28 AM PRIMARY Partial intestinal obstruction, unspecified as to cause JESSICA WARD R [facility] Plan of Treatment: Future Appointments (+ 6 months) and Future Tests (+/- 45 days) The Plan of Treatment section includes future care activities for the patient from all [place] treatmentfacilities. This section includes future appointments and future orders which are active, pending or scheduled. Future Appointments This section includes appointments that were scheduled to occur 6 months from the date of the Encounter, up to a maximum of 20 appointments. The data comes from all [place] treatment facilities. Appointment Date/Time Appointment Type Appointme nt Facility Name Dec 09, 2023 01:15 PM AMBULATORY - SURGERY POPLA R CRUTIS [facility] Feb 04, 2024 01:00 PM AMBULATORY - MEDICINE POPL AR BLOMAYRA [facility] Feb 09, 2024 08:30 AM AMBULATORY - MEDICINE [facility] Mar 10, 2024 08:00 AM AMBULATORY - MEDICINE POPL AR BLUFF [facility] Mar 30, 2024 09:30 AM AM[facility]ULATORY - MEDICINE [facility] Apr 06, 2024 10:20 AM AMBULATORY - MEDICINE POPL AR BLOMAYRA [facility] Apr 18, 2024 08:00 AM AMBULATORY - NEUROLOGY POP LAR BLOM[facility]RA [facility] Apr 26, 2024 08:00 AM AMBULATORY - NONE ADRIANA SOLITARIO [facility] Active, Pending, and Scheduled Orders This section includes a listing of several types of active, pending, and scheduled orders, including clinic medications orders, diagnostic test orders, procedure orders and consult orders; where the start date of the order is 45 days before the date of the Encounter or 45 days after the date of theEncounter. The data comes from all [place] treatment facilities. Test Date/Time Test Type Test Details Facility Name Nov 16, 2023 09:57 AM Laboratory - Chemi stry Order POC UA (STL-PB-MA) URINE SP [facility] Lab Results: +/- 30 days of the encounter This section includes the Chemistry and Hematology Lab Results on record with [place] for the patient. Radiology Reports and Pathology Reports are provided separately, in subsequent sections. Lab Results This section contains the Chemistry/Hematology Results that were resulted 30 days before or 30 daysafter the date of the Encounter. Date/Time Source Result Type Result - Unit Interpretation Reference Range Specimen Type Comment Nov 19, 2023 03:11 PM [facility] URINALYSIS W/ CX REFLEX (STL-PB) URINE Specim en Type: URINE No comment entered. Ordering Provider: PHANI WARD Report Released Date/Time: Nov 19, 2023 03:08 PM Reporting Lab: AD[facility]ANA [facility] [address] [facility] [id number] Performing Lab[facility] [address] [facility] [id number] URINE COLOR Light Yellow Yellow U.BILIRUBIN NEGATIVE [...] 1.009 1.005-1.029 Nov 16, 2023 10:10 AM [facility] POC UA (STL-PB-MA) URINE Specimen Type: URINE No comment entered. Ordering Provider: TALIB WARD Report Released Date/Time: Nov 16, 2023 10:16 AM Reporting Lab: [facility] [address] [facility] [id number] Performing Lab: [facility] [address] [facility] [phone] PROTEIN POC UA 30 mg/dL Negative BLOOD [...] Positive Negative CLARITY POC UA Clear CLEAR Vital Signs: All taken on the encounter date This section contains inpatient and outpatient Vital Signs collected on the date of the Encounter. Date/Time Temperature Pulse Blood Pressure Respiratory Rate SP02 Pain Height Weight Body Mass Index Source Nov 19, 2023 02:36 PM 98.3 79 103/61 97 [facility] Nov 19, 2023 02:34 PM 84 18 97 0 62.5 140.9 25 [facility] Social History: Smoking Status (Most current) and Tobacco Use (All prior to encounter date) This section includes the most current, and the historical, smoking and tobacco- related health factors from the [place] facility where the Encounter took place. Current Smoking Status This section includes the most current smoking, or tobacco-related health factor, from the [place] facility where the Encounter took place. Date/Time Current Smoking Status Comment Benoit itkenia Sep 16, 2022 08:30 AM [place]-TOBACCO NEVER USED [facility] Tobacco Use History This section includes a history of the smoking, or tobacco-related health factors, that were collected on or before the date of the Encounter. The data comes from the [place] facility where the Encounter took place. Date/Time Smoking Status/Tobacco Use Comment F acility May 10, 2021 09:00 AM [place]-TOBACCO NEVER USED [facility] Apr 11, 2020 09:07 AM VA-TOBACCO NEVER USED [facility] Sep 17, 2018 04:17 PM VA-TOBACCO NEVER USED [facility] Encounter Notes: All associated encounter notes This section contains the clinical notes associated to the Encounter. Date/Time Encounter Note(s) Provider Source Nov 19, 2023 03:52 PM PRIMARY CARE PROGR ESS NOTE: LOCAL TITLE: PRIMARY CARE CLINIC PROGRESS NOTE PB STANDARD TITLE: PRIMARY CARE PROGRESS NOTE DATE OF NOTE: NOV 19, 2023@15:52 ENTRY DATE: NOV 19, 2023@15:52:57 AUTHOR: TALIB WARDIGNER: URGENCY: STATUS: COMPLETED PROVIDER ASSESSMENT DATE & TIME:Oct@15:53 CHIEF COMPLAINT: ER follow up for bowel obstruction. HISTORY OF PRESENT ILLNESS: Kirkland is being seen for post hospital discharge post bowel obstruction. Kirkland states she started having abdominal pain and then went to the ER and was admitted. She had an NG tube and was in the hospital several days. The GI doctor told her it was a virus that caused her to have inflammation of the bowel but the hospitalist kind of disagreed with that. She is still on antibiotics for it and a UTI. She will have her urine rechecked and sent off for culture as that was not done earlier this week. She is still on a soft diet and taking miralax. She had a bowel movement this morning. She is not having abdominal pain. 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 No blurry vision, vision loss, eye pain, red eyes, or foreign body. No runnynose, congestion, or nose bleed. No hearing loss,ringing in the ears, or vertigo. No sore throat or dental pain. RESPIRATORY: No cough, SOA, wheezing, or sputum production. CARDIOVASCULAR: No chest pain, palpitations, tachycardia, PND, or orthopnea. GI: No abdominal pain, nausea, vomiting, diarrhea, constipation, melena, or hematochezia. : No dysuria, hematuria, urinary frequency, weak stream, or post-void dribbling. MUSCULOSKELETAL:No muscle or joint pain. SKIN: No rash, lesions, or infection PSYCH: No Depression or Anxiety. Not suicidal. PHYSICAL ASSESSMENT: VITAL SIGNS Pulse: 79 (11/19/2023 14:36) Blood Pressure: 103/61 (11/19/2023 14:36) Respiratory Rate: 18 (11/19/2023 14:34) Temperature: 98.3 F [36.8 C] (11/19/2023 14:36) Weight: 140.9 lb [63.91 kg] (11/19/2023 14:34) Height: 62.5 in [158.8 cm] (11/19/2023 14:34) Pain: 0 (11/19/2023 14:34) CARDIAC: Regular rate and rhythm without murmur. No edema. RESPIRATORY: CTA, BEBS GI: Abdomen soft,with ABS, no HSM, no guarding or rebound. MUSCULOSKELETAL:No muscle or joint tenderness. FROM. SKIN: [place] without rash or lesions. NEUROLOGICAL: The [place] is alert and oriented without distress. Affect appropriate. IMPRESSION: Bowel Obstruction-resolved. PLAN: Increase water intake. Continue soft diet. Add Miralax. Recheck urine with c&s. RTC as previously scheduled. Patient is advised this primary care clinic has open access and he can make a same day appointment anytime a problem/concern arises. Patient further advised he can be seen on a walk-in basis as needed. Patient is provided clinic contact information. Medications reviewed and reconciled. Discussed diet and exercise as relevant to patient conditions. Treatment plan as noted above and the After Visit Summary was reviewed with ; opportunity provided to report concerns and ask question regarding aspects of care or treatment or services; concurrence reached and verbalized understanding. Please refer to addendum or follow up lab letter for plan of care/changes related to lab/test results not available at conclusion of appointment, if any. Discussed with patient that in the event of community imaging / testing being ordered in the future, once the imaging / testing has been completed, please notify PACT of within 1 week by a VA PACT member; this is due to intermittent lapses in notification of imaging completion within [facility]. All questions answered; agrees to plan of care. Follow up as listed above, annually, and as needed. Keep all completion at outside facility if not called with results appointments. Medications Reconciled. Time spent 30 minutes. /griselda/ [facility] Signed: 11/19/2023 16:23 TALIB WARD MS NATHANAEL Nov 19, 2023 02:42 PM PRIMARY CARE NURSI NG NOTE: LOCAL TITLE: PRIMARY CARE NURSING PROGRESS NOTE (TEXT) NURSING P STANDARD TITLE: PRIMARY CARE NURSING NOTE DATE OF NOTE: NOV 19, 2023@14:42 ENTRY DATE: NOV 19, 2023@14:42:50 AUTHOR: AIDA PANCHAL EXP COSIGNER: URGENCY: STATUS: COMPLETED Established Patient ISRAEL BELTRÁN IS A 43 YEAR OLD FEMALE BEING SEEN IN CLINIC NOV 19, 2023. == == REASON FOR VISIT: ER F/u for ABD Pain - states she had bowel movement today. She reports she has an appt with VALENTINA BUTLER in a few weeks. Are you receiving care any where other than the [facility]? No HEALTH AND SURGICAL HISTORY: Does patient report using home oxygen? No CURRENT ACTIVE MEDICATIONS FOR REVIEW: Allergies/ADRs (Tool #5) FACILITY ALLERGY/ADR -------- [facility] No Known Allergies NixonYvonne ANDRY [facility] NO KNOWN ALLERGIES Med. Reconciliation (Tool #1) INCLUDED IN THIS LIST: Alphabetical list of active outpatient prescriptions dispensed from this [place] (local) and dispensed from another [place] or [facility] facility (remote) as well as inpatient orders (local pending and active), local clinic medications, locally documented non-VA medications, and local prescriptions that have or been discontinued in the past 90 days. Non-VA Meds Last Documented On: Data not found NOTE The display of VA prescriptions dispensed from another [place] or [facility] facility (remote) is limited to active outpatient prescription entries matched to National Drug File at the originating site and may not include some items such as investigational drugs, compounds, etc. NOT INCLUDED IN THIS LIST: Medications self-entered by the patient into personal health records (i.e. [employer]) are NOT included in this list. Non-VA medications documented outside this [place], remote inpatient orders (regardless of status) and remote clinic medications are NOT included in this list. The patient and provider must always discuss medications the patient is taking, regardless of where the medication was dispensed or obtained. OUTPT CETIRIZINE HCL 10MG TAB (Status = Active) TAKE ONE TABLET BY MOUTH ONCE A DAY NEEDED FOR ALLERGY SYMPTOMS Rx# [id number] Last Released: 11/02/23 Qty/Days Supply: Rx Expiration Date: 06/22/24 Refills Remainin Indication: FOR ALLERGY SYMPTOMS OUTPT FLUTICASONE PROP 50MCG 120D NASAL INHL (Status = Active) INSTILL 1 SPRAY IN NOSTRIL(S) EVERY MORNING FOR RHINITIS (MUST BE USED DIRECTED FOR MINIMUM OF 21 DAYS TO PROVIDE ADEQUATE BENEFITS) Rx# [id number] Last Released: 06/24/23 Qty/Days Supply: Rx Expiration Date: 06/22/24 Refills Remainin Indication: FOR RHINITIS OUTPT MICONAZOLE NITRATE 2% TOP PWDR (Status = ) APPLY LIGHTLY TO AFFECTED AREA(S) DIRECTED APPLY TO FEET (SHOES) MONTHLY NEEDED. Rx# [id number] Last Released: 10/02/22 Qty/Days Supply: Rx Expiration Date: 09/27/23 Refills Remainin OUTPT TRIAMCINOLONE ACETONIDE 0.1% CREAM (Status = ) APPLY SPARINGLY TO AFFECTED AREA(S) DIRECTED APPLY TO BACK AND CHEST NEEDED Rx# [id number] Last Released: 10/02/22 Qty/Days Supply: Rx Expiration Date: 09/27/23 Refills Remainin SUPPLIES PHARMACY TERMS AND POSSIBLE PATIENT ACTIONS INPT = [place] inpatient order IV = [place] intravenous medication OUTPT = [place] outpatient prescription PHARMACY POSSIBLE PATIENT TERMS EXPLANATION ACTIONS -------- ----- ACTIVE A prescription that can be If you have refills, filled at the local VA pharmacy. you may request a refill of this prescription from your VA pharmacy. CLINIC A medication you received during If you have questions a visit to a VA clinic or about this medication emergency department. contact your VA healthcare team. DISCONTINUED A prescription your provider has Contact your VA stopped. It is no longer healthcare team if you available to be sent to you or need more of this picked up at the [place] pharmacy medication. window. A prescription which is too old Contact your VA to fill. This does not refer to healthcare team if you the expiration date of the need more of this medication in the container. medication. NON-VA A medication that came from If this medication someplace other than a VA information is pharmacy. This may be a incorrect or out of prescription from either the VA date, please tell your or non VA providers that was VA healthcare team. filled outside the VA. Or, it may be an hezx-wvp-pjgfqsh (OTC), herbal, dietary supplements or sample medication. ON HOLD An active prescription that will Contact your VA not be filled until pharmacy pharmacy when you need resolves the issue. more of this medication. PARKED An active prescription that will Contact your VA not be filled until the patient pharmacy when you need requests it. this medication. PENDING This prescription order has been If you have been sent to the pharmacy for review instructed to start and is not ready yet. this medication now, contact your VA pharmacy. SUSPENDED An active prescription that is Contact your [place] not scheduled to be filled yet. pharmacy if you need You should receive it before this medication now. you run out. Patient reports taking medications as ordered. Also, reports taking abx from [facility] and Bactrim DS IS PATIENT TAKING ANY OVER THE COUNTER MEDICATIONS, SUCH VITAMINS OR HERBAL SUPPLEMENTS, INCLUDING ANY MEDICATIONS PRESCRIBED BY ANOTHER PHYSICIAN? No ALLERGIES/ADVERSE REACTIONS: Patient has answered NKA Does patient have any new allergies to report since last visit? NO VITALS: TEMPERATURE: 98.3 F [36.8 C] (11/19/2023 14:36) BP: 103/61 (11/19/2023 14:36) RESP: 18 (11/19/2023 14:34) PULSE: 79 (11/19/2023 14:36) HT: 62.5 in [158.8 cm] (11/19/2023 14:34) WT: 140.9 lb [63.91 kg] (11/19/2023 14:34) BMI: 25.4 PAIN ASSESSMENT: (Most Recent Pain Score in Vitals Package: 0 (11/19/2023 14:34) ) The patient indicated that they and their close contacts have not traveled outside of the [place] in the past 21 days. The patient reports the following symptoms: No symptoms present The patient is not immunocompromised. The patient does not report having a history of Multi Drug Resistant Organism (MDRO) within the last five years. The patient does not report having been exposed to measles, chickenpox, or zoster in last 30 days. Patient reports no pain at this visit. Pain Score = 0. STRESS: Thank you for your service. Now let us serve you. At the [facility], we strive to provide you with exceptional health care that improves your health and well-being. Are you feeling sad, empty, or depressed? No Do you need to talk about things in your life that worry you or cause you stress? No Do you need to talk about personal problems, family problems, alcohol use, drug use, or mental or emotional illness? No SUICIDE SCREENING: The patient was asked, Over the past two weeks, how often have you been bothered by thoughts that you would be better off or of hurting yourself in some way? Not At All SPIRITUAL ASSESSMENT: Are there orthodox practices or spiritual concerns you want the creative consultant, your physician, and other health care team members to immediately know about? No Patient advised to call the clinic for any concerns, questions, or symptoms. Patient and/or caregiver verbalized understanding of plan of care. /griselda/ AIDA PANCHAL LPN Signed: 11/19/2023 14:47 [facility] PANCHAL [facility]
--- OUTSIDE RECORDS SUMMARY | 2024-02-09 03:30 | XMS_ITS | Encounter Summary ---
Author Name [facility] [place] [facility] [place] Address [address] [place] [address] Care Team Providers Care Greenhouse Superintendent Name Role Phone ABHI GRANADOS Primary Care [...] Policy Almanzar [facility] Mar 23, 2023 [id number] [phone] LUIS BELTRÁN PATIENT [facility] /UBH* [facility] Mar 23, 2023 [id number] [phone] LUIS BELTRÁN PATIENT [facility] RX PRESCRIPT ION RX PLAN Mar 23, 2023 UNITEDR X [id number] [phone] LUIS BELTRÁN PATIENT [facility] RX PRESCRIPT ION RX PLAN Mar 23, 2019 [facility] [id number] [phone] LEROY AREVALO PATIENT [facility] RX [id number] PRESCRIPT ION [facility] E [facility] Mar 23, 2023 UNITEDR X [id number] [phone] LUIS BELTRÁNJose PATIENT [facility] Mar 23, 2019 [id number] [phone] ISRAEL RODRIGUES PATIENT [facility] POINT OF SERVICE [facility] Mar 23, 2023 [id number] [phone] LUIS BELTRÁNJose PATIENT [facility] * HIGH DEDUCTIBL E HEALTH PLAN W/HEALTH SAVINGS ACCOUNT [facility] CDHP HSA Mar 23, 2023 [id number] [phone] LUIS BELTRÁN PATIENT Selected Encounter This section includes the information on record at [place] for the Encounter. Date/Time Encounter Type Encounter Description Reason Provider Source Feb 09, 2024 08:30 AM OFFICE O/P EST LOW 20 MIN PRIMARY CARE/MEDICINE ICD-10-CM M25.532 Pain in left wrist JESSICA WARD Juan Encounter Template Text not used by [place] Assessments - Encounter Diagnoses This section includes the primary and secondary diagnoses documented for the Encounter. Date/Time Primary/Secondary Diagnosis Diagnosis Name Provider Source Feb 16, 2024 02:45 PM PRIMARY Pain in left wrist JESSICA WARD [facility] Plan of Treatment: Future Appointments (+ 6 months) and Future Tests (+/- 45 days) The Plan of Treatment section includes future care activities for the patient from all [place] treatmentfacilities. This section includes future appointments and future orders which are active, pending or scheduled. Future Appointments This section includes appointments that were scheduled to occur 6 months from the date of the Encounter, up to a maximum of 20 appointments. The data comes from all [place] treatment facilities. Appointment Date/Time Appointment Type Appointme nt Facility Name Mar 10, 2024 08:00 AM AMBULATORY - MEDICINE [place] [facility] Mar 30, 2024 09:30 AM AMBULATORY - MEDICINE [facility] Apr 06, 2024 10:20 AM AMBULATORY - MEDICINE [place] [facility] Apr 18, 2024 08:00 AM AMBULATORY - NEUROLOGY [place] [facility] Apr 26, 2024 08:00 AM AMBULATORY - NONE [place] B [place] [facility] Vital Signs: All taken on the encounter date This section contains inpatient and outpatient Vital Signs collected on the date of the Encounter. Date/Time Temperature Pulse Blood Pressure Respiratory Rate SP02 Pain Height Weight Body Mass Index Source Feb 09, 2024 08:44 AM 97.8 81 110/77 18 99 3 62.5 149.0 27 [facility] Social History: Smoking Status (Most current) and Tobacco Use (All prior to encounter date) This section includes the most current, and the historical, smoking and tobacco- related health factors from the [place] facility where the Encounter took place. Current Smoking Status This section includes the most current smoking, or tobacco-related health factor, from the [place] facility where the Encounter took place. Date/Time Current Smoking Status Comment Facil ity Sep 16, 2022 08:30 AM VA-TOBACCO NEVER USED [facility] Tobacco Use History This section includes a history of the smoking, or tobacco-related health factors, that were collected on or before the date of the Encounter. The data comes from the [place] facility where the Encounter took place. Date/Time Smoking Status/Tobacco Use Comment F acryan May 10, 2021 09:00 AM VA-TOBACCO NEVER USED [facility] Apr 11, 2020 09:07 AM VA-TOBACCO NEVER USED [facility] Sep 17, 2018 04:17 PM VA-TOBACCO NEVER USED [facility] Radiology Reports: +/- 30 days of the encounter Radiology Reports For cases when an order for radiology services may have been completed prior to the date of the Encounter, the report list includes the Radiology Reports that were completed up to 30 days before dateof the Encounter. For cases when an order for radiology services may have been completed after the date of the Encounter, the report list also includes the Radiology Reports that were completed up to30 days after date of the Encounter. The data comes from all [place] treatment facilities. Date/Time Radiology Report Provider Source Feb 09, 2024 09:01 AM WRIST,LEFT, 3 OR M ORE VIEWS: ISRAEL BELTRÁN [id number] [id number] F Exm Date: FEB 09, 2024@09:01 Req Phys: TALIB WARD Loc: PB-[facility] PACT [facility]A [facility]UL[facility] (Req Img Loc: PB-XRAY [place] Service: Unknown Screen: [place] [address] (Case [id number] COMPLETE) WRIST,LEFT, 3 OR MORE VIEWS (RAD Detailed) CPT:61568 Reason for Study: left wrist pain for 4 days Clinical History: no known injury but does sleep on wrist Report Status: Verified Date Reported: FEB 09, 2024 Date Verified: FEB 09, 2024 Money Laundering Investigator E-Sig: Report: Left wrist 3 views. There is no fracture or dislocation. No bony destruction. No significant degenerative changes. Impression: Essentially unremarkable wrist survey Primary Interpreting Staff: JN LERMA, RADIOLOGIST (Money Laundering Investigator, no e-sig) /JN Johns [facility] Encounter Notes: All associated encounter notes This section contains the clinical notes associated to the Encounter. Date/Time Encounter Note(s) Provider Source Mar 30, 2024 09:50 AM PRIMARY CARE NURSI NG NOTE: LOCAL TITLE: PRIMARY CARE NURSING PROGRESS NOTE (TEXT) NURSING P STANDARD TITLE: PRIMARY CARE NURSING NOTE DATE OF NOTE: MAR 30, 2024@09:50 ENTRY DATE: MAR 30, 2024@09:50:18 AUTHOR: EDER RICKS COSIGNER: URGENCY: STATUS: COMPLETED Established Patient ISRAEL BELTRÁN IS A 43 YEAR OLD FEMALE BEING SEEN IN CLINIC MAR 30, 2024. == == REASON FOR VISIT: Annual appt Are you receiving care any where other than the [facility]? No HEALTH AND SURGICAL HISTORY: Does patient report using home oxygen? No CURRENT ACTIVE MEDICATIONS FOR REVIEW: Allergies/ADRs (Tool #5) FACILITY ALLERGY/ADR -------- [facility] No Known Allergies Debbie [facility] NO KNOWN ALLERGIES Med. Reconciliation (Tool #1) INCLUDED IN THIS LIST: Alphabetical list of active outpatient prescriptions dispensed from this [place] (local) and dispensed from another [place] or [place] facility (remote) as well as inpatient orders (local pending and active), local clinic medications, locally documented non-VA medications, and local prescriptions that have or been discontinued in the past 90 days. Non-VA Meds Last Documented On: Data not found NOTE The display of VA prescriptions dispensed from another [place] or [facility] facility (remote) is limited to active outpatient prescription entries matched to National Drug File at the originating site and may not include some items such as investigational drugs, compounds, etc. NOT INCLUDED IN THIS LIST: Medications self-entered by the patient into personal health records (i.e. Viajala) are NOT included in this list. Non-VA medications documented outside this [place], remote inpatient orders (regardless of status) and remote clinic medications are NOT included in this list. The patient and provider must always discuss medications the patient is taking, regardless of where the medication was dispensed or obtained. OUTPT CETIRIZINE HCL 10MG TAB (Status = Active) TAKE ONE TABLET BY MOUTH ONCE A DAY NEEDED FOR ALLERGY SYMPTOMS Rx# [id number] Last Released: 01/23/24 Qty/Days Supply: Rx Expiration Date: 06/22/24 Refills Remainin Indication: FOR ALLERGY SYMPTOMS OUTPT FLUTICASONE PROP 50MCG 120D NASAL INHL (Status = Active) INSTILL 1 SPRAY IN NOSTRIL(S) EVERY MORNING FOR RHINITIS (MUST BE USED DIRECTED FOR MINIMUM OF 21 DAYS TO PROVIDE ADEQUATE BENEFITS) Rx# [id number] Last Released: 06/24/23 Qty/Days Supply: Rx Expiration Date: 06/22/24 Refills Remainin Indication: FOR RHINITIS SUPPLIES PHARMACY TERMS AND POSSIBLE PATIENT ACTIONS INPT = [place] inpatient order IV = [place] intravenous medication [place]PT = [place] outpatient prescription PHARMACY POSSIBLE PATIENT TERMS EXPLANATION ACTIONS -------- ----- ACTIVE A prescription that can be If you have refills, filled at the local [place] pharmacy. you may request a refill of this prescription from your [place] pharmacy. CLINIC A medication you received during If you have questions a visit to a [place] clinic or about this medication emergency department. contact your [place] healthcare team. DISCONTINUED A prescription your provider has Contact your [place] stopped. It is no longer healthcare team if you available to be sent to you or need more of this picked up at the [place] pharmacy medication. window. A prescription which is [...] the VA. Or, it may be an mmsv-tpp-ihkvrwm (OTC), herbal, dietary supplements or sample medication. [...] An active prescription that is Contact your [facility] not scheduled to be filled yet. pharmacy if you need You should receive it before this medication now. you run out. Patient reports taking medications as IS PATIENT TAKING ANY OVER THE COUNTER MEDICATIONS, SUCH VITAMINS OR HERBAL SUPPLEMENTS, INCLUDING ANY MEDICATIONS PRESCRIBED BY ANOTHER PHYSICIAN? No ALLERGIES/ADVERSE REACTIONS: Patient has answered NKA Does patient have any new allergies to report since last visit? NO VITALS: TEMPERATURE: 97.8 F [36.6 C] (02/09/2024 08:44) BP: 110/77 (02/09/2024 08:44) RESP: 18 (02/09/2024 08:44) PULSE: 81 (02/09/2024 08:44) HT: 62.5 in [158.8 cm] (02/09/2024 08:44) WT: 149.0 lb [67.59 kg] (02/09/2024 08:44) BMI: 26.9 PAIN ASSESSMENT: (Most Recent Pain Score in Vitals Package: 3 (02/09/2024 08:44) ) The patient indicated that they and [...] Now let us serve you. At the [facility], we strive to provide you with exceptional [...] Not At All SPIRITUAL ASSESSMENT: Are there yazdanism practices or spiritual concerns you want the supervisor framing mill, your physician, and other health care team members to immediately know about? No Patient advised to call the clinic for any concerns, questions, or symptoms. Patient and/or caregiver verbalized understanding of plan of care. Suicide Screen - V: C-SSRS Screening [place] Suicide Severity Rating Scale (C-SSRS) screener 1. Over the past month, have you wished you were or wished you could go to sleep and not wake up? No 2. Over the past month, have you had any actual thoughts of killing yourself? No 3. Over the past month, have you been thinking about how you might do this? Response not required due to responses to other questions. 4. Over the past month, have you had these thoughts and had some intention of acting on them? Response not required due to responses to other questions. 5. Over the past month, have you started to work out or worked out the details of how to kill yourself? Response not required due to responses to other questions. 6. If yes, at any time in the past month did you intend to carry out this plan? Response not required due to responses to other questions. 7. In your lifetime, have you ever done anything, started to do anything, or prepared to do anything to end your life (for example, collected pills, obtained a gun, gave away valuables, went to the roof but didn't jump)? No 8. If YES, was this within the past 3 months? Response not required due to responses to other questions. Sexual Orientation - CP,L,N,P,PH,PS,S,U: The patient thinks of their sexual orientation as: Straight or Heterosexual Alcohol Use Screen (AUDIT-C) - V: Alcohol Screen: SCREEN FOR ALCOHOL (AUDIT-C) An alcohol screening test (AUDIT-C) was negative (score=0). 1. How often did you have a drink containing alcohol in the past year? Consider a drink to be a 12 ounce can or bottle of regular beer, 8 ounces of malt liquor, a 5 ounce glass of table wine, or a 1.5 ounce shot of liquor (like scotch, gin, or vodka). Never 2. How many drinks containing alcohol did you have on a typical day when you were drinking in the past year? Response not required due to responses to other questions. 3. How often did you have 4 or more drinks on one occasion in the past year? Response not required due to responses to other questions. Depression Screening - V: Perform PHQ-2 A PHQ-2 screen was performed. The score was 0 which is a negative screen for depression. Over the past two weeks, how often have you been bothered by the following problems? 1. Little interest or pleasure in doing things Not at all 2. Feeling down, depressed, or hopeless Not at all Advanced Directive Screen/Phys Assistant: ADVANCE DIRECTIVE SCREENING: I asked if the patient has an advance directive, and determined that: Patient does not have an Advance Directive. Patient was given form to update and return when completed. ADVANCE DIRECTIVE NOTIFICATION I provided the patient with written notification about advance directives. Level of understanding: Good Weight Control/Nutrition Counseling: * The patient received the following counseling at this encounter: Patient was encouraged to restrict fat, especially saturated fats, in a normal diet. Benefit of a diet high in fiber was discussed. Patient was advised to include 5 or more servings of fruit and vegetables and six or more servings of grains as a well balanced diet. PTSD Screening - V: PC-PTSD-5 A PTSD screening test (PC-PTSD-5) was negative (score=0). IN THE PAST MONTH, have you ever had any experience that was so frightening, horrible or traumatic. For example: A serious accident or fire a physical or sexual assault or abuse An earthquake or flood A war Seeing someone be killed or seriously injured Having a loved one through homicide or suicide 1. Have you ever experienced this kind of event? NO 2. Had nightmares about the event(s) or thought about the event(s) when you did not want to? Response not required due to responses to other questions. 3. Tried hard not to think about the event(s) or went out of your way to avoid situations that reminded you of the event(s)? Response not required due to responses to other questions. 4. Been constantly on guard, watchful, or easily startled? Response not required due to responses to other questions. 5. Lynd numb or detached from people, activities, or your surroundings? Response not required due to responses to other questions. 6. Lynd guilty or unable to stop blaming yourself or others for the event(s) or any problems the event(s) may have caused? Response not required due to responses to other questions. Tdap Immunization - L,N,P,PH,U: The patient declines to receive the recommended dose of Tdap vaccine. Immunization: TDAP Refusal Reason: PATIENT DECISION Patient refuses all immunization(s) in the TDAP group Date Documented: 03/30/24 09:59 /griselda/ Eder Ricks RN [facility], JJP [facility] Signed: 03/30/2024 09:59 EDER RICKS [facility] Feb 09, 2024 09:01 AM PRIMARY CARE PROGR ESS NOTE: LOCAL TITLE: PRIMARY CARE CLINIC PROGRESS NOTE PB STANDARD TITLE: PRIMARY CARE PROGRESS NOTE DATE OF NOTE: FEB 09, 2024@09:01 ENTRY DATE: FEB 09, 2024@09:01:29 AUTHOR: TALIB WARD COSIGNER: URGENCY: STATUS: COMPLETED PROVIDER ASSESSMENT DATE & TIME:Jan@09:01 CHIEF COMPLAINT: Left wrist pain. HISTORY OF PRESENT ILLNESS: is being seeing for pain over the radial process of the left wrist. She denies any new injury. She does sleep on the left wrist. She states it only hurts off and on and she has not taken any medication for it. 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 SKIN: No rash, lesions, or infection PSYCH: No Depression or Anxiety. Not suicidal. PHYSICAL ASSESSMENT: VITAL SIGNS Pulse: 81 (02/09/2024 08:44) Blood Pressure: 110/77 (02/09/2024 08:44) Respiratory Rate: 18 (02/09/2024 08:44) Temperature: 97.8 F [36.6 C] (02/09/2024 08:44) Weight: 149.0 lb [67.59 kg] (02/09/2024 08:44) Height: 62.5 in [158.8 cm] (02/09/2024 08:44) Pain: 3 (02/09/2024 08:44) MUSCULOSKELETAL:Left wrist pain over radial process without swelling, warmth or erythrema. SKIN: [place] without rash or lesions. NEUROLOGICAL: The [place] is alert and oriented without distress. Affect appropriate. IMPRESSION: Left Wrist Pain-current PLAN: Left Wrist Xray. Ibuprofen as directed for discomfort. RTC if symptoms continue or worsen. Reviewed xray results with in office that are negative. Impression: Essentially unremarkable wrist survey Patient is advised this primary care clinic [...] the After Visit Summary was reviewed with [place]; opportunity provided to report concerns and ask [...] PACT of within 1 week by a [place] PACT member; this is due to intermittent lapses in notification of imaging completion within CPRS. All questions answered; agrees to plan of care. Follow up as listed above, annually, and as needed. Keep all completion at outside facility if not called with results appointments. Medications Reconciled. Time spent 30 minutes. /griselda/ ARMAND [facility] Signed: 02/09/2024 10:04 TALIB WARD PA [facility] Feb 09, 2024 08:50 AM PRIMARY CARE NURSI NG NOTE: LOCAL TITLE: PRIMARY CARE NURSING PROGRESS NOTE (TEXT) NURSING P STANDARD TITLE: PRIMARY CARE NURSING NOTE DATE OF NOTE: FEB 09, 2024@08:50 ENTRY DATE: FEB 09, 2024@08:51:02 AUTHOR: AIDA PANCHAL EXP COSIGNER: URGENCY: STATUS: COMPLETED Established Patient ISRAEL BELTRÁN IS A 43 YEAR OLD FEMALE BEING SEEN IN CLINIC FEB 09, 2024. == == REASON FOR VISIT: here today with c/o LEFT wrist pain. 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 Are you receiving care any where other than the [facility]? No HEALTH AND SURGICAL HISTORY: Does patient report using home oxygen? No CURRENT ACTIVE MEDICATIONS FOR REVIEW: Allergies/ADRs (Tool #5) FACILITY ALLERGY/ADR -------- [facility] No Known Allergies Debbie [facility] NO KNOWN ALLERGIES Med. Reconciliation (Tool #1) INCLUDED IN THIS LIST: Alphabetical list of active outpatient prescriptions dispensed from this [place] (local) and dispensed from another [place] or [facility] facility (remote) as well as inpatient orders (local pending and active), local clinic medications, locally documented non-VA medications, and local prescriptions that have or been discontinued in the past 90 days. Non-VA Meds Last Documented On: Data not found NOTE The display of VA prescriptions dispensed from another [place] or [facility] facility (remote) is limited to active outpatient prescription entries matched to National Drug File at the originating site and may not include some items such as investigational drugs, compounds, etc. NOT INCLUDED IN THIS LIST: Medications self-entered by the patient into personal health records (i.e. [facility]jala) are NOT included in this list. Non-VA medications documented outside this [place], remote inpatient orders (regardless of status) and remote clinic medications are NOT included in this list. The patient and provider must always discuss medications the patient is taking, regardless of where the medication was dispensed or obtained. OUTPT CETIRIZINE HCL 10MG TAB (Status = Active) TAKE ONE TABLET BY MOUTH ONCE A DAY NEEDED FOR ALLERGY SYMPTOMS Rx# [id number] Last Released: 01/23/24 Qty/Days Supply: Rx Expiration Date: 06/22/24 Refills Remainin Indication: FOR ALLERGY SYMPTOMS OUTPT FLUTICASONE PROP 50MCG 120D NASAL INHL (Status = Active) INSTILL 1 SPRAY IN NOSTRIL(S) EVERY MORNING FOR RHINITIS (MUST BE USED DIRECTED FOR MINIMUM OF 21 DAYS TO PROVIDE ADEQUATE BENEFITS) Rx# [id number] Last Released: 4/3/24 Qty/Days Supply: Rx Expiration Date: 06/22/24 Refills Remainin Indication: FOR RHINITIS SUPPLIES PHARMACY TERMS AND POSSIBLE PATIENT ACTIONS INPT = [place] inpatient order IV = [place] intravenous medication OUTPT = [place] outpatient prescription PHARMACY POSSIBLE PATIENT TERMS EXPLANATION ACTIONS -------- ----- ACTIVE A prescription that can be If you have refills, filled at the local [place] pharmacy. you may request a refill of this prescription from your [place] pharmacy. CLINIC A medication you received during If you have questions a visit to a [place] clinic or about this medication emergency department. contact your [place] healthcare team. DISCONTINUED A prescription your provider has Contact your [place] stopped. It is no longer healthcare team if you available to be sent to you or need more of this picked up at the [place] pharmacy medication. window. A prescription which is [...] the VA. Or, it may be an veda-rip-yztedxa (OTC), herbal, dietary supplements or sample medication. [...] An active prescription that is Contact your [place] not scheduled to be filled yet. pharmacy if you need You should receive it before this medication now. you run out. Patient reports taking medications as ordered. IS PATIENT TAKING ANY OVER THE COUNTER MEDICATIONS, SUCH VITAMINS OR HERBAL SUPPLEMENTS, INCLUDING ANY MEDICATIONS PRESCRIBED BY ANOTHER PHYSICIAN? No ALLERGIES/ADVERSE REACTIONS: Patient has answered NKA Does patient have any new allergies to report since last visit? NO VITALS: TEMPERATURE: 97.8 F [36.6 C] (02/09/2024 08:44) BP: 110/77 (02/09/2024 08:44) RESP: 18 (02/09/2024 08:44) PULSE: 81 (02/09/2024 08:44) HT: 62.5 in [158.8 cm] (02/09/2024 08:44) WT: 149.0 lb [67.59 kg] (02/09/2024 08:44) BMI: 26.9 PAIN ASSESSMENT: (Most Recent Pain Score in Vitals Package: 3 (02/09/2024 08:44) ) The patient indicated that they and [...] Now let us serve you. At the [facility], we strive to provide you with exceptional [...] Not At All SPIRITUAL ASSESSMENT: Are there yazdanism practices or spiritual concerns you want the supervisor framing mill, your physician, and other health care team members to immediately know about? No Patient advised to call the clinic for any concerns, questions, or symptoms. Patient and/or caregiver verbalized understanding of plan of care. /griselda/ AIDA PANCHAL LPN Signed: 02/09/2024 08:57 AIDA PANCHAL [facility]
--- OUTSIDE RECORDS SUMMARY | 2024-03-30 04:30 | XMS_ITS | Encounter Summary ---
Author Name [facility] [facility] [place] [facility] [place] Address [address] [place] [address] Care Team Providers Care Ibm Websphere Portal Developer Name Role Phone ABHI GRANADOS Primary Care [...] Policy Almanzar [facility] Mar 23, 2023 [id number] [phone] LUIS BELTRÁN PATIENT [facility] /UBH* [facility] Mar 23, 2023 [id number] [phone] LUIS BELTRÁN PATIENT [facility] RX PRESCRIPT ION RX PLAN Mar 23, 2023 UNITEDR X [id number] [phone] LUIS BELTRÁN PATIENT [facility] RX PRESCRIPT ION RX PLAN Mar 23, 2019 [facility] [id number] [phone] LEROY AREVALO PATIENT [facility] RX [id number] PRESCRIPT ION [facility] Mar 23, 2023 UNITEDR X [id number] [phone] LUIS BELTRÁN PATIENT [facility] Mar 23, 2019 [id number] [phone] ISRAEL RODRIGUES PATIENT [facility] POINT OF SERVICE [facility] HEALT H Mar 23, 2023 [id number] [phone] LUIS BELTRÁN PATIENT [facility] * HIGH DEDUCTIBL E HEALTH PLAN W/HEALTH [place] ACCOUNT [facility] CDHP HSA Mar 23, 2023 [id number] [phone] LUIS BELTRÁN PATIENT Selected Encounter This section includes the information on record at [place] for the Encounter. Date/Time Encounter Type Encounter Description Reason Provider Source Mar 30, 2024 09:30 AM Outpatient Encounter PRIMARY CARE/MEDICINE ICD-10-CM Z00.00 Encntr for general adult medical exam w/o abnormal findings MAGED WARD Juan Encounter Template Text not used by [place] Assessments - Encounter Diagnoses This section includes the primary and secondary diagnoses documented for the Encounter. Date/Time Primary/Secondary Diagnosis Diagnosis Name Provider Source Apr 06, 2024 01:40 PM PRIMARY Encntr for general adult medical exam w/o abnormal findings [facility] Apr 06, 2024 01:40 PM SECONDARY Major depressive disorder, single episode, unspecified [facility] Plan of Treatment: Future Appointments (+ [...] Date/Time Appointment Type Appointme nt Facility Name Apr 06, 2024 10:20 AM AMBULATORY - MEDICINE [place] [facility] Apr 18, 2024 08:00 AM AMBULATORY - NEUROLOGY [place] [facility] Apr 26, 2024 08:00 AM AMBULATORY - NONE [place] Ashkan [facility] Sep 15, 2024 08:30 AM AMBULATORY - MEDICINE [facility] Active, Pending, and Scheduled Orders [...] Date/Time Test Type Test Details Facility Name Apr 14, 2024 11:59 AM Consult Order [facility]ERAP[facility] [id number] Cons Machinist Class B's Choice [facility] Lab Results: +/- 30 days of [...] Unit Interpretation Reference Range Specimen Type Comment Mar 30, 2024 10:02 AM [facility] COMPREHENSIVE METABOLIC PANEL PLASMA Specimen Type: PLASMA No comment entered. Ordering Provider: PHANI WARD Report Released Date/Time: Mar 30, 2024 09:48 AM Reporting Lab: [facility] [address] [place] [address] Performing Lab: [facility] [address] [place] [address] CREATININE 0.84 mg/dL 0.6-1.1 UREA NITROGEN 13 mg/dL 9-25 GLUCOSE 91 mg/dL 72-99 SODIUM 140 meq/L 136-145 POTASSIUM 3.8 meq/L 3.5-5 CHLORIDE 105 meq/L 98-107 CARBON DIOXIDE 26 meq/L 22-31 CALCIUM 9.6 mg/dL 8.4-10.4 PROTEIN 8.2 g/dL 6-8.6 ALBUMIN 4.5 g/dL 3.4-5 TOTAL BILIRUBIN 0.4 mg/dL 0.2-1.2 ALKALINE PHOSPHATASE 56 U/L 40-150 AST/SGOT 16 U/L 5-34 ALT/SGPT 21 U/L 8-40 EGFR (CKD-EPI 2020) 89 Mar 30, 2024 10:02 AM [facility] URINALYSIS (STL-PB) URINE Specimen Type: URIN E No comment entered. Ordering Provider: TALIB WARD Report Released Date/Time: Mar 30, 2024 09:48 AM Reporting Lab: ADRIANA [place] [facility] [address] [place] [address] Performing Lab: ADRIANA ACEVEDO [facility] [address] [place] [id number] URINE COLOR Light Yellow Yellow U.BILIRUBIN NEGATIVE mg/dL Negative U.PH 6.0 5.0-8.0 URINE WBC/HPF 3 /[HPF] 0-5 URINE RBC/HPF 11 /[HPF] H 0-5 APPEARANCE TURBID H Clear U.NITRITE NEGATIVE mg/dL Negative BACTERIA RARE /[HPF] H Negative SQUAMOUS EPITH. 9 /[HPF] H 0-5 MUCUS RARE /[LPF] Negative-Rare CA OXYLATE CRYSTALS OCCASIONAL /[HPF] H Ne gative-Rare URN.GLUCOSE NORMAL mg/dL Negative URN.PROTEIN NEGATIVE mg/dL URN.UROBILINOGEN 2.0 mg/dL H Normal URN.BLOOD NEGATIVE mg/dL Negative-Trace URN.KETONES NEGATIVE mg/dL Negative-Trac e URN.LEUK.EST. NEGATIVE Negative-Trace URN.SPECIFIC GRAVITY 1.025 1.005-1.029 Mar 30, 2024 10:02 AM [facility] CBC BLOOD Specimen Type: BLOOD No comment entered. Ordering Provider: TALIB WARD Report Released Date/Time: Mar 30, 2024 09:48 AM Reporting Lab: ADRIANA ACEVEDO [facility] [address] [place] [address] Performing Lab: ADRIANA ACEVEDO [facility] [address] [facility] WBC 7.4 10*3/uL 3.6-11.2 RBC 4.33 10*6/uL 3.60-5.00 HGB 13.9 g/dL 11.0-14.9 HCT 40.5 32.6-43.4 MCV 93.5 fL 80.0-100.0 MCH 32.1 pg 27.0-34.0 MCHC 34.3 g/dL 33.0-36.0 PLT 338 10*3/uL 150-400 MPV 9.7 fL 7.5-11.2 RDW <11.8 11.8-15.1 LYMPHOCYTES, AUTO % 33.3 MONOCYTES, AUTO % 6.3 NEUTROPHILS, AUTO % 56.3 EOSINOPHILS, AUTO % 2.8 BASOPHILS, AUTO % 0.9 LYMPHOCYTES, ABSOLUTE 2.48 10*3/uL 0.77- 4.50 MONOCYTES, ABSOLUTE 0.47 10*3/uL 0.19-0. 8 NEUTROPHILS, ABSOLUTE 4.18 10*3/uL 2.10- 8.00 EOSINOPHILS, ABSOLUTE 0.21 10*3/uL 0.00- 0.60 BASOPHILS, ABSOLUTE 0.07 10*3/uL 0.00-0. 20 IMMATURE GRANS, AUTO % 0.4 IMMATURE GRANS, AUTO ABS 0.03 10*3/uL 0. 00-0.05 Mar 30, 2024 10:02 AM [facility] TSH (MA-PB) SERUM Specimen Typ e: SERUM No comment entered. Ordering Provider: TALIB WARD Report Released Date/Time: Mar 30, 2024 09:48 AM Reporting Lab: [place] [facility] [address] [place] [address] Performing Lab: [place] [facility] [address] [place] [address] TSH 0.636 u[IU]/mL 0.47-5 Mar 30, 2024 10:02 AM [facility] CHOLESTEROL PANEL (PB) PLASMA Specimen Type: P LASMA No comment entered. Ordering Provider: TALIB WARD Report Released Date/Time: Mar 30, 2024 09:48 AM Reporting Lab: [place] [facility] [address] [place] [address] Performing Lab: [place] [facility] [address] [place] [address] CHOLESTEROL 163 mg/dL 0-200 TRIGLYCERIDE 122 mg/dL 0-150 CALCULATED LDL 95.1 mg/dL HDL(New) 43.5 mg/dL H >40 HDL % OF TOTAL CHOLESTEROL (PB) 26.7 >25 Mar 30, 2024 10:02 AM [facility] HGA1C BLOOD Specimen Type: BLOOD No comment entered. Ordering Provider: TALIB WARD Report Released Date/Time: Mar 30, 2024 09:48 AM Reporting Lab: [place] [facility] [address] [place] [address] Performing Lab: [place] [facility] [address] [place] [address] HGA1C 5.0 4.0-6.0 Mar 30, 2024 10:02 AM [facility] VITAMIN D, 25-HYDROXY SERUM Specimen Type: SE RUM No comment entered. Ordering Provider: TALIB WARD Report Released Date/Time: Mar 30, 2024 09:48 AM Reporting Lab: [place] [facility] [address] [place] [address] Performing Lab: [place] [facility] [address] [place] [address] VITAMIN D, 25-HYDROXY 46.8 ng/mL 30-96 Mar 30, 2024 10:02 AM [facility] FERRITIN SERUM Specimen Typ e: SERUM No comment entered. Ordering Provider: TALIB WARD Report Released Date/Time: Mar 30, 2024 09:57 AM Reporting Lab: [place] [facility] [address] [place] [address] Performing Lab: [place] [facility] [address] [place] [address] FERRITIN 231 ng/mL H 10-204 Mar 30, 2024 10:02 AM [facility] FOLATE (PB) SERUM Specimen Typ e: SERUM No comment entered. Ordering Provider: TALIB WARD Report Released Date/Time: Mar 30, 2024 09:57 AM Reporting Lab: [place] [facility] [address] [place] [address] Performing Lab: [place] [facility] [address] [place] [address] FOLATE (PB) 5.6 ng/mL L 7-20 Mar 30, 2024 10:02 AM [facility] IRON PLASM A Specimen Type: PLASMA No comment entered. Ordering Provider: TALIB WARD Report Released Date/Time: Mar 30, 2024 09:57 AM Reporting Lab: [place] [facility] [address] [place] [address] Performing Lab: [place] [facility] [address] [place] [address] IRON 78 ug/dL 50-170 Social History: Smoking Status (Most current) and [...] VA-TOBACCO NEVER USED [place] [facility] Radiology Reports: +/- 30 days [...] the Encounter. The data comes from all [place] treatment facilities. Date/Time Radiology Report Provider Source Apr 18, 2024 08:00 AM FEE BASE OUTSIDE S CREENING MAMMOGRAM: ISRAEL BELTRÁN [id number] -1980 F Exm Date: APR 18, 2024@08:00 Req Phys: TALIB WARD Loc: PB-BEBA PACT TERESA COPYHOLDER WH (Req Img Loc: OUTSIDE PB-MAMMO Service: Unknown Screen: Patient is unable to answer or is unsure Screen Comment: outside facility (Case [id number] COMPLETE) FEE BASE OUTSIDE SCREENING MAMMOG(ANJEL Detailed) CPT:06400 Reason for Study: Mammogram Clinical History: Report Status: Electronically Filed Date Reported: APR 18, 2024 Report: see impression text Impression: Exam was performed at an outside facility. Images and report have not been reviewed or read by [place] staff. To review report, you will need to log into [facility] and select the correct patient to see the scanned in document. Consult dated [id number] BIRADS 2 [facility] VERIFIED BY: / *ELECTRONICALLY FILED* ADRIANA ACEVEDO [facility] Mar 30, 2024 09:59 AM CHEST X-RAY, 2 VIE WS: ISRAEL BELTRÁN [id number] -1980 F Exm Date: MAR 30, 2024@09:59 Req Phys: TALIB WARD Loc: PB-BEBA PACT FOXTROT COPYHOLDER WH (Req Img Loc: PB-XRAY [place] Service: Unknown Screen: [place] [address] (Case [id number] COMPLETE) CHEST X-RAY, 2 VIEWS (RAD Detailed) CPT:27241 Reason for Study: screening Clinical History: Report Status: Verified Date Reported: MAR 30, 2024 Date Verified: MAR 30, 2024 Principal Examiner E-Sig: Report: PA and lateral views of the chest reveal no infiltrate, effusion or other acute intrathoracic process. Heart size is normal. Impression: No acute process Primary Interpreting Staff: TRAN FOWLER RADIOLOGIST (Principal Examiner, no e-sig) /[facility] [place] [facility] Encounter Notes: All associated encounter notes This section contains the clinical notes associated to the Encounter. Date/Time Encounter Note(s) Provider Source Apr 02, 2024 07:24 PM PHYSICIAN LETTERS: LOCAL TITLE: TEST RESULT GENERAL LETTER STL STANDARD TITLE: PHYSICIAN LETTERS DATE OF NOTE: APR 02, 2024@19:24 ENTRY DATE: APR 02, 2024@19:24:23 AUTHOR: TALIB WARD EXP COSIGNER: URGENCY: STATUS: COMPLETED [facility] [address] [place] [address] APR 02, 2024 ISRAEL BELTRÁN [address] [place] [id number] Dear Israel Beltrán, I would like to update you on your recent test results. LIPID PROFILE - High cholesterol and triglycerides (lipids) are risk factors for heart disease. Your cholesterol should fall between 140 and 200, and your triglycerides levels should be less than or equal to 150. HDL is the good cholesterol and should ideally be greater than 40. LDL is the bad cholesterol and optimal levels should be less than 100 (near optimal is between 100 and 129). TRIGLYCERIDE 122 mg/dL 03/30/2024 10:02 CHOLESTEROL 163 mg/dL 03/30/2024 10:02 HDL(New) 43.5 H mg/dL 03/30/2024 10:02 CALCULATED LDL 95.1 mg/dL 03/30/2024 10:02 HDL % OF TOTAL CHOLESTEROL (PB) 26.7 % 03/30/2024 10:02 No DIRECT LDL EO data found These readings are within normal limits. GLUCOSE - Your blood sugar or glucose level result GLUCOSE GLUCOSE 91 mg/dL 03/30/2024 10:02 These readings are within normal limits. HEMOGLOBIN A1C - Gives us information about your diabetes (sugar or glucose) control over the past 3 months. Your target is to keep your A1C below 6 %. HGA1C 5.0 % 03/30/2024 10:02 These readings are within normal limits. CBC - A complete blood count (CBC) gives important information about the kinds and numbers of cells in the blood, especially red blood cells, white blood cells, and platelets. HGB 13.9 g/dL 03/30/2024 10:02 HEMATOCRIT 40.5 % (03/30/24 10:02) PLT 338 10*3/uL 03/30/2024 10:02 WHITE BLOOD COUNT 7.4 10*3/uL (03/30/24 10:02) These readings are within normal limits. IRON STUDIES - Test to show iron deficiency. IRON 78 ug/dL 03/30/2024 10:02 No TIBC EO data found No IRON SATURATION EO data found FERRITIN 231 H ng/mL 03/30/2024 10:02 These readings are within normal limits. CHEM 7 - This is important information about the current status of your kidneys, liver, and electrolyte and acid/base balance as well as of your blood sugar and blood proteins. SODIUM 140 mEq/L 03/30/2024 10:02 POTASSIUM 3.8 mEq/L 03/30/2024 10:02 CHLORIDE 105 mEq/L 03/30/2024 10:02 UREA NITROGEN 13 mg/dL 03/30/2024 10:02 CREATININE 0.84 mg/dL 03/30/2024 10:02 CALCIUM 9.6 mg/dL 03/30/2024 10:02 CARBON DIOXIDE 26 mEq/L 03/30/2024 10:02 GLUCOSE 91 mg/dL 03/30/2024 10:02 EGFR (CKD-EPI 2020) 89 03/30/2024 10:02 These readings are within normal limits. LIVER FUNCTION PANEL - These are tests for liver function: PROTEIN 8.2 g/dL 03/30/2024 10:02 ALBUMIN 4.5 g/dL 03/30/2024 10:02 TOTAL BILIRUBIN 0.4 mg/dL 03/30/2024 10:02 ALKALINE PHOSPHATASE 56 U/L 03/30/2024 10:02 AST/SGOT 16 U/L 03/30/2024 10:02 ALT/SGPT 21 U/L 03/30/2024 10:02 These readings are within normal limits. TSH - Thyroid-stimulating hormone (also known as TSH or thyrotropin) is a peptide hormone synthesized and secreted by thyrotrope cells in the anterior pituitary gland, which regulates the endocrine function of the thyroid gland. TSH TSH 0.636 uIU/mL 03/30/2024 10:02 These readings are within normal limits. VITAMIN D - Helps promote the proper utilization of calcium and phosphorus, thereby producing proper bone maintenance. VITAMIN D, 25-HYDROXY 46.8 ng/mL 03/30/2024 10:02 These readings are within normal limits. URINALYSIS - A urinalysis (or UA ) is an array of tests performed on urine and one of the most common methods of medical diagnosis. URINALYSIS URINE COLOR Light Yellow 03/30/2024 10:02 APPEARANCE TURBID H 03/30/2024 10:02 U.PH 6.0 03/30/2024 10:02 U.BILIRUBIN NEGATIVE mg/dL 03/30/2024 10:02 U.NITRITE NEGATIVE mg/dL 03/30/2024 10:02 URINE RBC/HPF 11 H /HPF 03/30/2024 10:02 URINE WBC/HPF 3 /HPF 03/30/2024 10:02 BACTERIA RARE H /HPF 03/30/2024 10:02 SQUAMOUS EPITH. 9 H /HPF 03/30/2024 10:02 MUCUS RARE /LPF 03/30/2024 10:02 CA OXYLATE CRYSTALS OCCASIONAL H /HPF 03/30/2024 10:02 These readings are within normal limits. Chest Xray: Impression: No acute process FUTURE APPOINTMENTS: 03/30/2025 08:30 PB-BEBA PACT TERESA COPYHOLDER WH Sincerely, Talib Ward, SUPERVISOR [facility]RI[facility] ISRAEL BELTRÁN CATHERINE R [facility] Mar 30, 2024 09:56 AM PRIMARY CARE PROGR ESS NOTE: LOCAL TITLE: PRIMARY CARE CLINIC PROGRESS NOTE PB STANDARD TITLE: PRIMARY CARE PROGRESS NOTE DATE OF NOTE: MAR 30, 2024@09:56 ENTRY DATE: MAR 30, 2024@09:56:54 AUTHOR: TALIB WARD EXP COSIGNER: URGENCY: STATUS: COMPLETED PROVIDER ASSESSMENT DATE & TIME:Mar@09:57 CHIEF COMPLAINT: Annual physical and labs. HISTORY OF PRESENT ILLNESS: Donal is being seen for her annual physical and labs. Donal is due for her mammogram and a consult will be placed for this. Donal does not use alcohol or tobacco products. Donal states that she has gained back 10 pounds that she lost but she is okay with where her weight is right now. [place] denies any home needs. 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 No blurry vision, vision loss, eye pain, red eyes, or foreign body. No runnynose, congestion, or nose bleed. No hearing loss, ringing in the ears, or vertigo. No sore [...] cm] (02/09/2024 08:44) Pain: 3 (02/09/2024 08:44) HEENT:PERRL, EOMI, Fundi benign, TM's clear, Pharynx not red and without exudate, tonsils normal size. NECK: Supple, no lymhadenopathy, thyroid normal. CARDIAC: Regular rate and rhythm without murmur. No edema. RESPIRATORY: CTA, BEBS GI: Abdomen soft,with ABS, no HSM, no guarding or rebound. MUSCULOSKELETAL:No muscle or joint tenderness. FROM. SKIN: Morales-Sanchez without rash or lesions. NEUROLOGICAL: The is alert and oriented without distress. Affect appropriate. IMPRESSION: Encounter for General Adult Medical Exam Depression-stable PLAN: Increase water intake. Labs today. Monthly self breast exam. Will order mammogram. RTC in one year or sooner if needed. Patient is advised this primary care clinic [...] the After Visit Summary was reviewed with [place]; opportunity provided to report concerns and ask [...] appointments. Medications Reconciled. Time spent 30 minutes. Mammogram Screening: Patient has chosen to begin mammogram screening at age 47. Mammogram Screening: See orders tab for any orders that may have been entered. Update Status - DI,L,N,P,PH,S,U: The patient is not currently lactating. /griselda/ AMISH Marti- NATHANAEL Varner Signed: 04/02/2024 19:22 [facility]ARD [facility]
[2024-09-15] VITALS (9 sets, daily range): BP systolic 101–122; BP diastolic 70–83; PULSE 75–104; RESP 16; TEMP 36.6–36.8; O2SAT 95–99; BMI 28.3
--- OUTSIDE RECORDS SUMMARY | 2024-09-15 03:30 | XMS_ITS | Encounter Summary ---
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 Name Role Phone ABHI GRANADOS Primary Care [...] Policy Almanzar [facility] Mar 23, 2023 [id number] LUIS BELTRÁN PATIENT [facility] Mar 23, 2023 [id number] [phone] LUIS BELTRÁN PATIENT [facility] PRESCRIPT ION RX PLAN Mar 23, 2023 [facility] X [id number] [phone] LUIS BELTRÁN PATIENT [facility] RX PRESCRIPT ION RX PLAN Mar 23, 2019 [facility] [id number] [phone] LEROY AREVALO PATIENT [facility] RX [id number] PRESCRIPT ION [facility] Mar 23, 2023 [facility] X [id number] [phone] LUIS BELTRÁN PATIENT [facility] Mar 23, 2019 [id number] [phone] ISRAEL RODRIGUES PATIENT [facility] POINT OF SERVICE [facility] Mar 23, 2023 [id number] [phone] LUIS BELTRÁN PATIENT [facility] * HIGH DEDUCTIBL E HEALTH PLAN W/HEALTH S[facility] Mar 23, 2023 [id number] [phone] LUIS BELTRÁN PATIENT Selected Encounter This section includes the information on record at [place] for the Encounter. Date/Time Encounter Type Encounter Description Reason Provider Source Sep 15, 2024 08:30 AM Outpatient Encounter PRIMARY CARE/MEDICINE PHANI WARD Encounter Template Text not used by [place] Vital Signs: All taken on the encounter date This section contains inpatient and outpatient Vital Signs collected on the date of the Encounter. Date/Time Temperature Pulse Blood Pressure Respiratory Rate SP02 Pain Height Weight Body Mass Index Source Sep 15, 2024 08:38 AM 98.3 F [facility] Sep 15, 2024 08:34 AM 94 /min 118/89 mm[Hg] 16 /min 97 % 6 62.5 in 152.9 lb 28 [facility] Social History: Smoking Status (Most current) and Tobacco Use (All prior to encounter date) This section includes the most current, and the historical, smoking and tobacco- related health factors from the [place] facility where the Encounter took place. Current Smoking Status This section includes the most current smoking, or tobacco-related health factor, from the [place] facility where the Encounter took place. Date/Time Current Smoking Status Comment Benoit guzman Sep 16, 2022 08:30 AM VA-TOBACCO NEVER USED [facility] Tobacco Use History This section includes a history of the smoking, or tobacco-related health factors, that were collected on or before the date of the Encounter. The data comes from the [place] facility where the Encounter took place. Date/Time Smoking Status/Tobacco Use Comment Kaylyn rios May 10, 2021 09:00 AM VA-TOBACCO NEVER USED [facility] Apr 11, 2020 09:07 AM VA-TOBACCO NEVER USED [facility] Sep 17, 2018 04:17 PM VA-TOBACCO NEVER USED [facility] Encounter Notes: All associated encounter notes This section contains the clinical notes associated to the Encounter. Date/Time Encounter Note(s) Provider Source Sep 15, 2024 08:39 AM PRIMARY CARE MONY BULLARD NOTE: LOCAL TITLE: PRIMARY CARE NURSING PROGRESS NOTE (TEXT) NURSING P STANDARD TITLE: PRIMARY CARE NURSING NOTE DATE OF NOTE: SEP 15, 2024@08:39 ENTRY DATE: SEP 15, 2024@08:39:51 AUTHOR: AIDA PANCHAL EXP COSIGNER: URGENCY: STATUS: COMPLETED Established Patient ISRAEL BELTRÁN IS A 43 YEAR OLD FEMALE BEING SEEN IN CLINIC SEP 15, 2024. REASON FOR VISIT: [place] here today for c/o sinus issues. She states it feels like she has water in her head. She also reports that after she ate dinner last night, she has had n/v and stomach pain that radiates around her right side to her back. rates pain 6/10. Are you receiving care any where other than the [facility]? No HEALTH AND SURGICAL HISTORY: Does patient report using home oxygen? No CURRENT ACTIVE MEDICATIONS FOR REVIEW: If the list for review does not include a component, then it was not applicable to this patient. Allergies/ADRs (Tool #5) FACILITY ALLERGY/ADR -------- [facility] No Known Allergies Debbie WILDE [facility] NO KNOWN ALLERGIES Med. Reconciliation (Tool #1) INCLUDED IN THIS LIST: Alphabetical list of active outpatient prescriptions dispensed from this [place] (local) and dispensed from another [place] or [facility] facility (remote) as well as inpatient orders (local pending and active), local clinic medications, locally documented non-VA medications, and local prescriptions that have or been discontinued in the past 90 days. Non-VA Meds Last Documented On: Data not found NOTE The display of VA prescriptions dispensed from another [place] or [facility] facility (remote) is limited to active outpatient prescription entries matched to National Drug File at the originating site and may not include some items such as investigational drugs, compounds, etc. NOT INCLUDED IN THIS LIST: Medications self-entered by the patient into personal health records (i.e. [employer]) are NOT included in this list. Non-VA medications documented outside this [place], remote inpatient orders (regardless of status) and remote clinic medications are NOT included in this list. The patient and provider must always discuss medications the patient is taking, regardless of where the medication was dispensed or obtained. OUTPT CETIRIZINE HCL 10MG TAB (Status = ) TAKE ONE TABLET BY MOUTH ONCE A DAY NEEDED FOR ALLERGY SYMPTOMS Rx# [id number] Last Released: 01/23/24 Qty/Days Supply: Rx Expiration Date: 06/22/24 Refills Remainin Indication: FOR ALLERGY SYMPTOMS OUTPT FLUTICASONE PROP 50MCG 120D NASAL INHL (Status = ) INSTILL 1 SPRAY IN NOSTRIL(S) EVERY MORNING FOR RHINITIS (MUST BE USED DIRECTED FOR MINIMUM OF 21 DAYS TO PROVIDE ADEQUATE BENEFITS) Rx# [id number] Last Released: 06/24/23 Qty/Days Supply: Rx Expiration Date: 06/22/24 Refills Remainin Indication: FOR RHINITIS OUTPT KETOCONAZOLE 2% SHAMPOO (Status = Active) USE SHAMPOO TO AFFECTED AREA(S) DIRECTED . LATHER ONTO SCALP 2-3 TIMES WEEKLY. ALLOW TO SIT 5 MINUTES BEFORE RINSING. (EXTERNAL USE ONLY) (SHAKE WELL) Rx# [id number] Last Released: 04/09/24 Qty/Days Supply: 120/30 Rx Expiration Date: 1/14/26 Refills Remainin SUPPLIES PHARMACY TERMS AND POSSIBLE PATIENT ACTIONS INPT = [place] inpatient order IV = [place] intravenous medication OUTPT = [place] outpatient prescription PHARMACY POSSIBLE PATIENT TERMS EXPLANATION ACTIONS -------- --- ACTIVE A prescription that can be If you have refills, filled at the local [place] pharmacy. you may request a refill of this prescription from your [place] pharmacy. CLINIC A medication you received during If you have questions a visit to a [place] clinic or about this medication emergency department. contact your [place] healthcare team. DISCONTINUED A prescription your provider has Contact your [facility] stopped. It is no longer healthcare team if you available to be sent to you or need more of this picked up at the [place] pharmacy medication. window. A prescription which is [...] or out of prescription from either the [place] date, please tell your or non VA providers that was VA healthcare team. filled outside the VA. Or, it may be an [id number] (OTC), herbal, dietary supplements or sample medication. [...] before this medication now. you run out. ======== Medication list reviewed with Patient Patient/Caregiver reports taking medications as ordered. IS PATIENT TAKING ANY OVER THE COUNTER MEDICATIONS, SUCH VITAMINS OR HERBAL SUPPLEMENTS, INCLUDING ANY MEDICATIONS PRESCRIBED BY ANOTHER PHYSICIAN? No Does patient have any new allergies to report since last visit? NO VITALS: TEMPERATURE: 98.3 F [36.8 C] (09/15/2024 08:38) BP: 118/89 (09/15/2024 08:34) RESP: 16 (09/15/2024 08:34) PULSE: 94 (09/15/2024 08:34) HT: 62.5 in [158.8 cm] (09/15/2024 08:34) WT: 152.9 lb [69.35 kg] (09/15/2024 08:34) BMI: 27.6 PAIN ASSESSMENT: (Most Recent Pain Score in Vitals Package: 6 (09/15/2024 08:34) ) The patient indicated that they and [...] chickenpox, or zoster in last 30 days. This patient's last pain assessment score was: 6 (09/15/2024 08:34). A detailed pain assessment showed the following: Pain characteristics (per patient's own words) Constant, Radiating or Moving, Pressure, Soreness Location of current pain abd pain STRESS: Thank you for your service. Now let us serve you. At the [facility], we strive to provide you with [...] Not At All SPIRITUAL ASSESSMENT: Are there quaker practices or spiritual concerns you want the ten pin bowling centre manager, your physician, and other health care team members to immediately know about? No Patient advised to call the clinic for any concerns, questions, or symptoms. Patient and/or caregiver verbalized understanding of plan of care. /griselda/ AIDA PANCHAL LPN Signed: 09/15/2024 08:43 AIDA PANCHAL [facility]
--- OUTSIDE RECORDS SUMMARY | 2024-09-15 04:22 | XMS_ITS | Continuity of Care Document ---
Author Name [facility] Organization [facility] Care Team Providers Care Application Chemist Name Role Phone [facility] Unavailable Unavailable Problems Combined list of problems from Department of Defense and Veterans Affairs facilities. It does not include entries that were removed or entered in error. 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 Overweight Active Condition [facility] Pain of left ankle joint Active Condition [facility] Right knee pain Active Condition [facility] Caregiver annual health check Inactive Condition 09/02/2019 [facility] Diagnosis: ICD-10-CM Z00.00 Encntr for general adult medical exam w/o abnormal findings Active Diagnosis [facility] Diagnosis: ICD-10-CM M25.532 Pain in left wrist Active Diagnosis [facility] Diagnosis: ICD-10-CM K56.600 Partial intestinal obstruction, unspecified as to cause Active Diagnosis [facility] Diagnosis: ICD-10-CM K59.09 Other constipation Active Diagnosis [facility] Diagnosis: ICD-10-CM N20.0 Calculus of kidney Active Diagnosis [facility] Diagnosis: ICD-10-CM R10.30 Lower abdominal pain, unspecified Active Diagnosis [facility] Diagnosis: ICD-10-CM J01.80 Other acute sinusitis Active Diagnosis [facility] Diagnosis: ICD-10-CM R05.1 Acute cough Active Diagnosis [facility] Diagnosis: ICD-10-CM H04.123 Dry eye syndrome of bilateral lacrimal glands Active Diagnosis [place] [facility] Medications Combined list of outpatient medications from Department of Defense and Veterans Affairs facilities.Medications provided include 1) outpatient medications from the last 15 months, and 2) patient-reported medications. Medication Details Route Status Patient Instructions Prescription Expires Prescription Number Last Dispense Date Ordering Provider Order Date Order Qty Source CETIRIZINE HCL 10MG TAB TAKE ONE TABLET BY MOUTH ONCE A DAY NEEDED FOR ALLERGY SYMPTOMS ORAL 06/22/2024 [id number] GERMAN LARA ISTEAmaya Licea 2023 90 [facility] FLUTICASONE PROPIONATE 50MCG/SPRAY SOLN,NASAL, 16GM INSTILL 1 SPRAY IN NOSTRIL( S) EVERY MORNING FOR RHINITIS (MUST BE USED DIRECTED FOR MINIMUM OF 21 DAYS TO PROVIDE ADEQUATE BENEFITS ) NASAL 06/22/2024 [id number] 4 GERMAN LARA ISTEL G 2023 3 [facility] KETOCONAZOL E 2% SHAMPOO USE SHAMPOO TO AFFECTED AREA(S) DIRECTED . LATHER ONTO SCALP 2-3 TIMES WEEKLY. ALLOW TO SIT 5 MINUTES BEFORE RINSING. (EXTERNA L USE ONLY) (SHAKE WELL) TOPICA L ACTIVE 04/05/2025 [id number] AMY OLEARY 2024 120 [place] [facility] LORATADINE 10MG TAB TAKE ONE TABLET BY MOUTH DAILY NEEDED ORAL ACTIVE ABHI GRANADOS 2018 [facility] Immunizations Combined list of available immunizations from the Department of Defense and Veterans Affairs facilities. Immunization Series Date Given Administered By Site Reaction Lot Number CVX Code Drug Service Worker Helper Status Comments Source TDAP 2015 115 complet ed Debbie WILDE [facility] Results Combined list of recent chemistry, hematology and other laboratory results from Department of Defense and Veterans Affairs, ranging from 15 months to all on record, depending upon the facility. Order Name Results Value Reference Range Date Interpretation Specimen Comments Source CBC LEUKOCYTES [#/VOLUME] IN BLOOD BY AUTOMATED COUNT 7.4 10*3/uL 3.6 - 11.2 03/30 Specimen Type: BLOOD No comment entered. Ordering Provider: Ricky WARD Report Released Date/Time : Mar 30, 2024 09:48 AM Reporting Lab: [place] [facility] [address] [place] [address] Performin g Lab: [place] [facility] [address] [place] [address] [facility] CBC ERYTHROCYTE S [#/VOLUME] IN BLOOD BY AUTOMATED COUNT 4.33 10*6/uL 3.60 - 5.00 03/30 Specimen Type: BLOOD No comment entered. Ordering Provider: Ricky WARD Report Released Date/Time : Mar 30, 2024 09:48 AM Reporting Lab: [place] [facility] [address] [place] [address] Performin g Lab: [place] [facility] [address] [place] [phone] [facility] CBC HEMOGLOBIN [MASS/VOLUM E] IN BLOOD 13.9 g/dL 11.0 - 14.9 03/30 Specimen Type: BLOOD No comment entered. Ordering Provider: Ricky WARD Report Released Date/Time : Mar 30, 2024 09:48 AM Reporting Lab: [place] [facility] [address] [place] [address] Performin g Lab: [place] [facility] [address] [place] [address] [facility] CBC HEMATOCRIT [VOLUME FRACTION] OF BLOOD 40.5 32.6 - 43.4 03/30 Specimen Type: BLOOD No comment entered. Ordering Provider: Ricky WARD R Report Released Date/Time : Mar 30, 2024 09:48 AM Reporting Lab: [place] [facility] [address] [place] [address] Performin g Lab: [place] [facility] [address] [place] [phone] [facility] CBC MCV [ENTITIC VOLUME] BY AUTOMATED COUNT 93.5 fL 80.0 - 100.0 03/30 Specimen Type: BLOOD No comment entered. Ordering Provider: Ricky WARD Report Released Date/Time : Mar 30, 2024 09:48 AM Reporting Lab: [place] [facility] [address] [place] [address] 8 Performin g Lab: [place] [facility] [address] [place] [address] [facility] CBC MCH [ENTITIC MASS] BY AUTOMATED COUNT 32.1 pg 27.0 - 34.0 03/30 Specimen Type: BLOOD No comment entered. Ordering Provider: Ricky WARD Report Released Date/Time : Mar 30, 2024 09:48 AM Reporting Lab: [place] [facility] [address] [place] [address] 8 Performin g Lab: [place] [facility] [address] [place] [address] [facility] CBC MCHC [MASS/VOLUM E] BY AUTOMATED COUNT 34.3 g/dL 33.0 - 36.0 03/30 Specimen Type: BLOOD No comment entered. Ordering Provider: Ricky WARD Report Released Date/Time : Mar 30, 2024 09:48 AM Reporting Lab: [place] [facility] [address] [place] [address] 8 Performin g Lab: [place] [facility] [address] [place] [address] [facility] CBC PLATELETS [#/VOLUME] IN BLOOD BY AUTOMATED COUNT 338 10*3/uL 150 - 400 03/30 Specimen Type: BLOOD No comment entered. Ordering Provider: Ricky WARD Report Released Date/Time : Mar 30, 2024 09:48 AM Reporting Lab: [place] [facility] [address] [place] [address] 8 Performin g Lab: [place] [facility] [address] [place] [address] [facility] CBC PLATELET MEAN VOLUME [ENTITIC VOLUME] IN BLOOD BY AUTOMATED COUNT 9.7 fL 7.5 - 11.2 03/30 Specimen Type: BLOOD No comment entered. Ordering Provider: Ricky WARD R Report Released Date/Time : Mar 30, 2024 09:48 AM Reporting Lab: [place] [facility] [address] [place] [address] 8 Performin g Lab: [place] [facility] [address] [place] [address] [facility] CBC ERYTHROCYTE DISTRIBUTIO N WIDTH [RATIO] BY AUTOMATED COUNT <11.8 11.8 - 15.1 03/30 Specimen Type: BLOOD No comment entered. Ordering Provider: Ricky WARD Report Released Date/Time : Mar 30, 2024 09:48 AM Reporting Lab: [place] [facility] [address] [place] [address] 8 Performin g Lab: [place] [facility] [address] [place] [address] [facility] CBC LYMPHOCYTES /100 LEUKOCYTES IN BLOOD BY AUTOMATED COUNT 33.3 03/30 Specimen Type: BLOOD No comment entered. Ordering Provider: Ricky WARD Report Released Date/Time : Mar 30, 2024 09:48 AM Reporting Lab: [place] [facility] [address] [place] [address] 8 Performin g Lab: [place] [facility] [address] [place] [address] [facility] CBC MONOCYTES/1 00 LEUKOCYTES IN BLOOD BY AUTOMATED COUNT 6.3 03/30 Specimen Type: BLOOD No comment entered. Ordering Provider: Ricky WARD R Report Released Date/Time : Mar 30, 2024 09:48 AM Reporting Lab: [place] [facility] [address] [place] [address] Performin g Lab: [place] [facility] [address] [place] [address] [facility] CBC NEUTROPHILS /100 LEUKOCYTES IN BLOOD BY AUTOMATED COUNT 56.3 03/30 Specimen Type: BLOOD No comment entered. Ordering Provider: Ricky WARD R Report Released Date/Time : Mar 30, 2024 09:48 AM Reporting Lab: [place] [facility] [address] [place] [address] 8 Performin g Lab: [place] [facility] [address] [place] [address] [facility] CBC EOSINOPHILS /100 LEUKOCYTES IN BLOOD BY AUTOMATED COUNT 2.8 03/30 Specimen Type: BLOOD No comment entered. Ordering Provider: Ricky WARD Report Released Date/Time : Mar 30, 2024 09:48 AM Reporting Lab: [place] [facility] [address] [place] [address] 8 Performin g Lab: [place] [facility] [address] [place] [address] [facility] CBC BASOPHILS/1 00 LEUKOCYTES IN BLOOD BY AUTOMATED COUNT 0.9 03/30 Specimen Type: BLOOD No comment entered. Ordering Provider: Ricky WARD Report Released Date/Time : Mar 30, 2024 09:48 AM Reporting Lab: [place] [facility] [address] [place] [address] 8 Performin g Lab: [place] [facility] [address] [place] [address] [facility] CBC LYMPHOCYTES [#/VOLUME] IN BLOOD BY AUTOMATED COUNT 2.48 10*3/uL 0.77 - 4.50 03/30 Specimen Type: BLOOD No comment entered. Ordering Provider: Ricky WARD R Report Released Date/Time : Mar 30, 2024 09:48 AM Reporting Lab: [place] [facility] [address] [place] [address] 8 Performin g Lab: [place] [facility] [address] [place] [address] [facility] CBC MONOCYTES [#/VOLUME] IN BLOOD BY AUTOMATED COUNT 0.47 10*3/uL 0.19 - 0.8 03/30 Specimen Type: BLOOD No comment entered. Ordering Provider: Ricky WARD R Report Released Date/Time : Mar 30, 2024 09:48 AM Reporting Lab: [place] [facility] [address] [place] [address] 8 Performin g Lab: [place] [facility] [address] [place] [address] 8 [facility] CBC NEUTROPHILS [#/VOLUME] IN BLOOD BY AUTOMATED COUNT 4.18 10*3/uL 2.10 - 8.00 03/30 Specimen Type: BLOOD No comment entered. Ordering Provider: Ricky WARD Report Released Date/Time : Mar 30, 2024 09:48 AM Reporting Lab: [place] [facility] [address] [place] [address] 8 Performin g Lab: [place] [facility] [address] [place] [address] 8 [facility] CBC EOSINOPHILS [#/VOLUME] IN BLOOD BY AUTOMATED COUNT 0.21 10*3/uL 0.00 - 0.60 03/30 Specimen Type: BLOOD No comment entered. Ordering Provider: Ricky WARD Report Released Date/Time : Mar 30, 2024 09:48 AM Reporting Lab: [place] [facility] [address] [place] [address] 8 Performin g Lab: [place] [facility] [address] [place] [address] 8 [facility] CBC BASOPHILS [#/VOLUME] IN BLOOD BY AUTOMATED COUNT 0.07 10*3/uL 0.00 - 0.20 03/30 Specimen Type: BLOOD No comment entered. Ordering Provider: Ricky WARD Report Released Date/Time : Mar 30, 2024 09:48 AM Reporting Lab: [place] [facility] [address] [place] [address] 8 Performin g Lab: [place] [facility] [address] [place] [address] [facility] CBC IMMATURE GRANULOCYTE S/100 LEUKOCYTES IN BLOOD BY AUTOMATED COUNT 0.4 03/30 Specimen Type: BLOOD No comment entered. Ordering Provider: Ricky WARD Report Released Date/Time : Mar 30, 2024 09:48 AM Reporting Lab: [place] [facility] [address] [place] [address] Performin g Lab: [place] [facility] [address] [place] [address] [facility] CBC IMMATURE GRANULOCYTE S [#/VOLUME] IN BLOOD BY AUTOMATED COUNT 0.03 10*3/uL 0.00 - 0.05 03/30 Specimen Type: BLOOD No comment entered. Ordering Provider: Ricky WARD Report Released Date/Time : Mar 30, 2024 09:48 AM Reporting Lab: [place] [facility] [address] [place] [address] Performin g Lab: [place] [facility] [address] [place] [address] [facility] CHOLESTERO L PANEL (PB) CHOLESTEROL [MASS/VOLUM E] IN SERUM OR PLASMA 163 mg/dL 0 - 200 03/30 Specimen Type: PLASMA No comment entered. Ordering Provider: Ricky WARD Report Released Date/Time : Mar 30, 2024 09:48 AM Reporting Lab: [place] [facility] [address] [place] [address] Performin g Lab: [place] [facility] [address] [place] [phone] 8 [facility] CHOLESTERO L PANEL (PB) TRIGLYCERID E [MASS/VOLUM E] IN SERUM OR PLASMA 122 mg/dL 0 - 150 03/30 Specimen Type: PLASMA No comment entered. Ordering Provider: Ricky WARD R Report Released Date/Time : Mar 30, 2024 09:48 AM Reporting Lab: [place] [facility] [address] [place] [address] 8 Performin g Lab: [place] [facility] [address] [place] [address] [facility] CHOLESTERO L PANEL (PB) CHOLESTEROL IN LDL [MASS/VOLUM E] IN SERUM OR PLASMA BY CALCULATION 95.1 mg/dL 03/30 Specimen Type: PLASMA No comment entered. Ordering Provider: Ricky WARD Report Released Date/Time : Mar 30, 2024 09:48 AM Reporting Lab: [place] [facility] [address] [place] [address] 8 Performin g Lab: [place] [facility] [address] [place] [address] 8 [facility] CHOLESTERO L PANEL (PB) CHOLESTEROL IN HDL [MASS/VOLUM E] IN SERUM OR PLASMA 43.5 mg/dL 40 03/30 H Specimen Type: PLASMA No comment entered. Ordering Provider: Ricky WARD Report Released Date/Time : Mar 30, 2024 09:48 AM Reporting Lab: [place] [facility] [address] [place] [address] Performin g Lab: [place] [facility] [address] [place] [address] [facility] CHOLESTERO L PANEL (PB) CHOLESTEROL IN HDL/CHOLEST YAN.TOTAL [MASS RATIO] IN SERUM OR PLASMA 26.7 25 03/30 Specimen Type: PLASMA No comment entered. Ordering Provider: Ricky WARD Report Released Date/Time : Mar 30, 2024 09:48 AM Reporting Lab: [place] [facility] [address] [place] [phone] 8 Performin g Lab: [place] [facility] [address] [place] [phone] 8 [facility] COMPREHENS LAUREL METABOLIC PANEL CREATININE [MASS/VOLUM E] IN SERUM OR PLASMA 0.84 mg/dL 0.6 - 1.1 03/30 Specimen Type: PLASMA No comment entered. Ordering Provider: Ricky WARD R Report Released Date/Time : Mar 30, 2024 09:48 AM Reporting Lab: [place] [facility] [address] [place] [address] Performin g Lab: [place] [facility] [address] [place] [address] 8 [facility] COMPREHENS LAUREL METABOLIC PANEL UREA NITROGEN [MASS/VOLUM E] IN SERUM OR PLASMA 13 mg/dL 9 - 25 03/30 Specimen Type: PLASMA No comment entered. Ordering Provider: Ricky WARD R Report Released Date/Time : Mar 30, 2024 09:48 AM Reporting Lab: [place] [facility] [address] [place] [address] Performin g Lab: [place] [facility] [address] [place] [address] [facility] COMPREHENS LAUREL METABOLIC PANEL GLUCOSE [MASS/VOLUM E] IN SERUM OR PLASMA 91 mg/dL 72 - 99 03/30 Specimen Type: PLASMA No comment entered. Ordering Provider: Ricky WARD Report Released Date/Time : Mar 30, 2024 09:48 AM Reporting Lab: [place] [facility] [address] [place] [address] Performin g Lab: [place] [facility] [address] [place] [address] [facility] COMPREHENS LAUREL METABOLIC PANEL SODIUM [MOLES/VOLU ME] IN SERUM OR PLASMA 140 meq/L 136 - 145 03/30 Specimen Type: PLASMA No comment entered. Ordering Provider: Ricky WARD Report Released Date/Time : Mar 30, 2024 09:48 AM Reporting Lab: [place] [facility] [address] [place] [address] Performin g Lab: [place] [facility] [address] [place] [address] [facility] COMPREHENS LAUREL METABOLIC PANEL POTASSIUM [MOLES/VOLU ME] IN SERUM OR PLASMA 3.8 meq/L 3.5 - 5 03/30 Specimen Type: PLASMA No comment entered. Ordering Provider: Ricky WARD R Report Released Date/Time : Mar 30, 2024 09:48 AM Reporting Lab: [place] [facility] [address] [place] [address] Performin g Lab: [place] [facility] [address] [place] [address] [facility] COMPREHENS LAUREL METABOLIC PANEL CHLORIDE [MOLES/VOLU ME] IN SERUM OR PLASMA 105 meq/L 98 - 107 03/30 Specimen Type: PLASMA No comment entered. Ordering Provider: Ricky WARD Report Released Date/Time : Mar 30, 2024 09:48 AM Reporting Lab: [place] [facility] [address] [place] [address] Performin g Lab: [place] [facility] [address] [place] [address] [facility] COMPREHENS LAUREL METABOLIC PANEL CARBON DIOXIDE, TOTAL [MOLES/VOLU ME] IN SERUM OR PLASMA 26 meq/L 22 - 31 03/30 Specimen Type: PLASMA No comment entered. Ordering Provider: Ricky WARD R Report Released Date/Time : Mar 30, 2024 09:48 AM Reporting Lab: [place] [facility] [address] [place] [address] Performin g Lab: [place] [facility] [address] [place] [address] 8 [facility] COMPREHENS LAUREL METABOLIC PANEL CALCIUM [MASS/VOLUM E] IN SERUM OR PLASMA 9.6 mg/dL 8.4 - 10.4 03/30 Specimen Type: PLASMA No comment entered. Ordering Provider: Ricky WARD R Report Released Date/Time : Mar 30, 2024 09:48 AM Reporting Lab: [place] [facility] [address] [place] [address] Performin g Lab: [place] [facility] [address] [place] [address] [facility] COMPREHENS LAUREL METABOLIC PANEL PROTEIN [MASS/VOLUM E] IN SERUM OR PLASMA 8.2 g/dL 6 - 8.6 03/30 Specimen Type: PLASMA No comment entered. Ordering Provider: Ricky WARD R Report Released Date/Time : Mar 30, 2024 09:48 AM Reporting Lab: [place] [facility] [address] [place] [address] Performin g Lab: [place] [facility] [address] [place] [address] 8 [facility] COMPREHENS LAUREL METABOLIC PANEL ALBUMIN [MASS/VOLUM E] IN SERUM OR PLASMA 4.5 g/dL 3.4 - 5 03/30 Specimen Type: PLASMA No comment entered. Ordering Provider: Ricky WARD Report Released Date/Time : Mar 30, 2024 09:48 AM Reporting Lab: [place] [facility] [address] [place] [address] Performin g Lab: [place] [facility] [address] [place] [address] 8 [facility] COMPREHENS LAUREL METABOLIC PANEL BILIRUBIN.T OTAL [MASS/VOLUM E] IN SERUM OR PLASMA 0.4 mg/dL 0.2 - 1.2 03/30 Specimen Type: PLASMA No comment entered. Ordering Provider: Ricky WARD Report Released Date/Time : Mar 30, 2024 09:48 AM Reporting Lab: [place] [facility] [address] [place] [address] Performin g Lab: [place] [facility] [address] [place] [address] [facility] COMPREHENS LAUREL METABOLIC PANEL ALKALINE PHOSPHATASE [ENZYMATIC ACTIVITY/VO LUME] IN SERUM OR PLASMA 56 U/L 40 - 150 03/30 Specimen Type: PLASMA No comment entered. Ordering Provider: Ricky WARD Report Released Date/Time : Mar 30, 2024 09:48 AM Reporting Lab: [place] [facility] [address] [place] [address] Performin g Lab: [place] [facility] [address] [place] [address] [facility] COMPREHENS LAUREL METABOLIC PANEL ASPARTATE AMINOTRANSF ERASE [ENZYMATIC ACTIVITY/VO LUME] IN SERUM OR PLASMA 16 U/L 5 - 34 03/30 Specimen Type: PLASMA No comment entered. Ordering Provider: Ricky WARD R Report Released Date/Time : Mar 30, 2024 09:48 AM Reporting Lab: [place] [facility] [address] [place] [address] 8 Performin g Lab: [place] [facility] [address] [place] [address] [facility] COMPREHENS LAUREL METABOLIC PANEL ALANINE AMINOTRANSF ERASE [ENZYMATIC ACTIVITY/VO LUME] IN SERUM OR PLASMA 21 U/L 8 - 40 03/30 Specimen Type: PLASMA No comment entered. Ordering Provider: Ricky WARD Report Released Date/Time : Mar 30, 2024 09:48 AM Reporting Lab: [place] [facility] [address] [place] [address] Performin g Lab: [place] [facility] [address] [place] [address] [facility] COMPREHENS LAUREL METABOLIC PANEL GLOMERULAR FILTRATION RATE/1.73 SQ M.PREDICTED [VOLUME RATE/AREA] IN SERUM, PLASMA OR BLOOD BY CREATININE- BASED FORMULA (CKD-EPI 2020) 89 03/30 Specimen Type: PLASMA No comment entered. Ordering Provider: Ricky WARD Report Released Date/Time : Mar 30, 2024 09:48 AM Reporting Lab: [place] [facility] [address] [place] [address] Performin g Lab: [place] [facility] [address] [place] [address] [facility] FERRITIN FERRITIN [MASS/VOLUM E] IN SERUM OR PLASMA 231 ng/mL 10 - 204 03/30 H Specimen Type: SERUM No comment entered. Ordering Provider: Ricky WARD Report Released Date/Time : Mar 30, 2024 09:57 AM Reporting Lab: [place] [facility] [address] [place] [address] Performin g Lab: [place] [facility] [address] [place] [address] [facility] FOLATE (PB) FOLATE [MASS/VOLUM E] IN SERUM OR PLASMA 5.6 ng/mL 7 - 20 03/30 L Specimen Type: SERUM No comment entered. Ordering Provider: Ricky WARD Report Released Date/Time : Mar 30, 2024 09:57 AM Reporting Lab: [place] [facility] [address] [place] [address] Performin g Lab: [place] [facility] [address] [place] [address] [facility] HGA1C HEMOGLOBIN A1C/HEMOGLO BIN.TOTAL IN BLOOD 5.0 4.0 - 6.0 03/30 Specimen Type: BLOOD No comment entered. Ordering Provider: Ricky WARD Report Released Date/Time : Mar 30, 2024 09:48 AM Reporting Lab: [place] [facility] [address] [place] [address] Performin g Lab: [place] [facility] [address] [place] [address] [facility] IRON IRON [MASS/VOLUM E] IN SERUM OR PLASMA 78 ug/dL 50 - 170 03/30 Specimen Type: PLASMA No comment entered. Ordering Provider: Ricky WARD Report Released Date/Time : Mar 30, 2024 09:57 AM Reporting Lab: [place] [facility] [address] [place] [address] Performin g Lab: [place] [facility] [address] [place] [address] [facility] TSH (MA-PB) THYROTROPIN [UNITS/VOLU ME] IN SERUM OR PLASMA 0.636 u[IU]/mL 0.47 - 5 03/30 Specimen Type: SERUM No comment entered. Ordering Provider: Ricky WARD Report Released Date/Time : Mar 30, 2024 09:48 AM Reporting Lab: [place] [facility] [address] [place] [address] Performin g Lab: [place] [facility] [address] [place] [address] [facility] URINALYSIS (STL-PB) COLOR OF URINE Light Yellow 03/30 Specimen Type: URINE No comment entered. Ordering Provider: Ricky WARD Report Released Date/Time : Mar 30, 2024 09:48 AM Reporting Lab: [place] [facility] [address] [place] [address] Performin g Lab: [place] [facility] [address] [place] [address] [facility] URINALYSIS (STL-PB) BILIRUBIN.T OTAL [PRESENCE] IN URINE BY TEST STRIP NEGATIVEm g/dL 03/30 Specimen Type: URINE No comment entered. Ordering Provider: Ricky WARD Report Released Date/Time : Mar 30, 2024 09:48 AM Reporting Lab: [place] [facility] [address] [place] [address] Performin g Lab: [place] [facility] [address] [place] [address] [facility] URINALYSIS (STL-PB) PH OF URINE BY TEST STRIP 6.0 5.0 - 8.0 03/30 Specimen Type: URINE No comment entered. Ordering Provider: Ricky WARD Report Released Date/Time : Mar 30, 2024 09:48 AM Reporting Lab: [place] [facility] [address] [place] [address] Performin g Lab: [place] [facility] [address] [place] [address] [facility] URINALYSIS (STL-PB) LEUKOCYTES [#/AREA] IN URINE SEDIMENT BY MICROSCOPY HIGH POWER FIELD 3 /[HPF] 0 - 5 03/30 Specimen Type: URINE No comment entered. Ordering Provider: Ricky WARD Report Released Date/Time : Mar 30, 2024 09:48 AM Reporting Lab: [place] [facility] [address] [place] [address] Performin g Lab: [place] [facility] [address] [place] [address] [facility] URINALYSIS (STL-PB) ERYTHROCYTE S [#/VOLUME] IN URINE SEDIMENT BY MICROSCOPY HIGH POWER FIELD 11 /[HPF] 0 - 5 03/30 H Specimen Type: URINE No comment entered. Ordering Provider: Ricky WARD Report Released Date/Time : Mar 30, 2024 09:48 AM Reporting Lab: [place] [facility] [address] [place] [address] Performin g Lab: [place] [facility] [address] [place] [address] [facility] URINALYSIS (STL-PB) APPEARANCE OF URINE TURBID 03/30 H Specimen Type: URINE No comment entered. Ordering Provider: Ricky WARD Report Released Date/Time : Mar 30, 2024 09:48 AM Reporting Lab: [place] [facility] [address] [place] [address] Performin g Lab: [place] [facility] [address] [place] [address] 8 [facility] URINALYSIS (STL-PB) NITRITE [PRESENCE] IN URINE BY TEST STRIP NEGATIVEm g/dL 03/30 Specimen Type: URINE No comment entered. Ordering Provider: Ricky WARD Report Released Date/Time : Mar 30, 2024 09:48 AM Reporting Lab: [place] [facility] [address] [place] [address] Performin g Lab: [place] [facility] [address] [place] [address] [facility] URINALYSIS (STL-PB) BACTERIA [PRESENCE] IN URINE SEDIMENT BY LIGHT MICROSCOPY RARE/[HPF ] 03/30 H Specimen Type: URINE No comment entered. Ordering Provider: Ricky WARD Report Released Date/Time : Mar 30, 2024 09:48 AM Reporting Lab: [place] [facility] [address] [place] [address] Performin g Lab: [place] [facility] [address] [place] [address] [facility] URINALYSIS (STL-PB) EPITHELIAL CELLS [#/AREA] IN URINE SEDIMENT BY MICROSCOPY LOW POWER FIELD 9 /[HPF] 0 - 5 03/30 H Specimen Type: URINE No comment entered. Ordering Provider: Ricky WARD Report Released Date/Time : Mar 30, 2024 09:48 AM Reporting Lab: [place] [facility] [address] [place] [address] Performin g Lab: [place] [facility] [address] [place] [address] [facility] URINALYSIS (STL-PB) MUCUS [PRESENCE] IN URINE SEDIMENT BY LIGHT MICROSCOPY RARE/[LPF ] 03/30 Specimen Type: URINE No comment entered. Ordering Provider: Ricky WARD Report Released Date/Time : Mar 30, 2024 09:48 AM Reporting Lab: [place] [facility] [address] [place] [address] Performin g Lab: [place] [facility] [address] [place] [address] [facility] URINALYSIS (STL-PB) CALCIUM OXALATE CRYSTALS [PRESENCE] IN URINE SEDIMENT BY LIGHT MICROSCOPY OCCASIONA L/[HPF] 03/30 H Specimen Type: URINE No comment entered. Ordering Provider: Ricky WARD Report Released Date/Time : Mar 30, 2024 09:48 AM Reporting Lab: [place] [facility] [address] [place] [address] Performin g Lab: [place] [facility] [address] [place] [address] [facility] URINALYSIS (STL-PB) GLUCOSE [MASS/VOLUM E] IN URINE BY TEST STRIP NORMALmg/ dL 03/30 Specimen Type: URINE No comment entered. Ordering Provider: Ricky WARD Report Released Date/Time : Mar 30, 2024 09:48 AM Reporting Lab: [place] [facility] [address] [place] [address] Performin g Lab: [place] [facility] [address] [place] [address] [facility] URINALYSIS (STL-PB) PROTEIN [MASS/VOLUM E] IN URINE BY TEST STRIP NEGATIVEm g/dL 03/30 Specimen Type: URINE No comment entered. Ordering Provider: Ricky WARD Report Released Date/Time : Mar 30, 2024 09:48 AM Reporting Lab: [place] [facility] [address] [place] [address] Performin g Lab: [place] [facility] [address] [place] [address] [facility] URINALYSIS (STL-PB) URN.UROBILI NOGEN 2.0 mg/dL 03/30 H Specimen Type: URINE No comment entered. Ordering Provider: Ricky WARD Report Released Date/Time : Mar 30, 2024 09:48 AM Reporting Lab: [place] [facility] [address] [place] [address] Performin g Lab: [place] [facility] [address] [place] [address] [facility] URINALYSIS (STL-PB) HEMOGLOBIN [MASS/VOLUM E] IN URINE BY TEST STRIP NEGATIVEm g/dL 03/30 Specimen Type: URINE No comment entered. Ordering Provider: Ricky WARD Report Released Date/Time : Mar 30, 2024 09:48 AM Reporting Lab: [place] [facility] [address] [place] [address] Performin g Lab: [place] [facility] [address] [place] [address] [facility] URINALYSIS (STL-PB) KETONES [MASS/VOLUM E] IN URINE BY TEST STRIP NEGATIVEm g/dL 03/30 Specimen Type: URINE No comment entered. Ordering Provider: Ricky WARD Report Released Date/Time : Mar 30, 2024 09:48 AM Reporting Lab: [place] [facility] [address] [place] [address] Performin g Lab: [place] [facility] [address] [place] [address] [facility] URINALYSIS (STL-PB) URN.LEUK.ES T. NEGATIVE 03/30 Specimen Type: URINE No comment entered. Ordering Provider: Ricky WARD Report Released Date/Time : Mar 30, 2024 09:48 AM Reporting Lab: [place] [facility] [address] [place] [address] Performin g Lab: [place] [facility] [address] [place] [address] [facility] URINALYSIS (STL-PB) SPECIFIC GRAVITY OF URINE 1.025 1.005 - 1.029 03/30 Specimen Type: URINE No comment entered. Ordering Provider: Ricky WARD Report Released Date/Time : Mar 30, 2024 09:48 AM Reporting Lab: [place] [facility] [address] [place] [address] Performin g Lab[place] [facility] [address] [place] [address] [place] [facility] VITAMIN D, 25-HYDROXY 25-HYDROXYV ITAMIN D3 [MASS/VOLUM E] IN SERUM OR PLASMA 46.8 ng/mL 30 - 96 03/30 Specimen Type: SERUM No comment entered. Ordering Provider: Ricky WARD Report Released Date/Time : Mar 30, 2024 09:48 AM Reporting Lab: [place] [facility] [address] [place] [address] Performin g Lab: [place] [facility] [address] [place] [address] [place] [facility] Vital Signs Combined list of inpatient and outpatient Vital Signs from Department of Defense and Veterans Affairs, ranging from 12 months to all on record, depending upon the facility. Vital Sign Value Date Comments Source SYSTOLIC BLOOD PRESSURE 118 09/15/2024 08:34:00 [place] [facility] DIASTOLIC BLOOD PRESSURE 89 09/15/2024 08:34:00 [place] [facility] PULSE OXIMETRY 97 % 09/15/2024 08:34:00 [facility] WEIGHT 152.9 09/15/2024 08:34:00 [place] [facility] BMI 28 kg/m2 09/15/2024 08:34:00 [place] [facility] PAIN 6 09/15/2024 08:34:00 [place] [facility] HEIGHT 62.5 09/15/2024 08:34:00 [place] [facility] PULSE 94 09/15/2024 08:34:00 [place] [facility] RESPIRATION 16 09/15/2024 08:34:00 [place] [facility] SYSTOLIC BLOOD PRESSURE 110 02/09/2024 08:44:00 [place] [facility] DIASTOLIC BLOOD PRESSURE 77 02/09/2024 08:44:00 [place] [facility] PULSE OXIMETRY 99 02/09/2024 08:44:00 [facility] WEIGHT 149.0 02/09/2024 08:44:00 [place] [facility] BMI 27 kg/m2 02/09/2024 08:44:00 [place] [facility] PAIN 3 02/09/2024 08:44:00 [place] [facility] HEIGHT 62.5 02/09/2024 08:44:00 [place] [facility] TEMPERATURE 97.8 02/09/2024 08:44:00 [place] [facility] PULSE 81 02/09/2024 08:44:00 [place] [facility] RESPIRATION 18 02/09/2024 08:44:00 [place] [facility] PULSE OXIMETRY 97 11/19/2023 14:34:00 [facility] WEIGHT 140.9 11/19/2023 14:34:00 [place] [facility] BMI 25 kg/m2 11/19/2023 14:34:00 [place] [facility] PAIN 0 11/19/2023 14:34:00 [place] [facility] HEIGHT 62.5 11/19/2023 14:34:00 [place] [facility] PULSE 84 11/19/2023 14:34:00 [place] [facility] RESPIRATION 18 11/19/2023 14:34:00 [place] [facility] SYSTOLIC BLOOD PRESSURE 105 09/17/2023 09:10:00 [place] [facility] DIASTOLIC BLOOD PRESSURE 68 09/17/2023 09:10:00 [facility] PULSE OXIMETRY 99 09/17/2023 09:10:00 [facility] WEIGHT 149.0 09/17/2023 09:10:00 [place] [facility] BMI 27 kg/m2 09/17/2023 09:10:00 [place] [facility] TEMPERATURE 97.8 09/17/2023 09:10:00 [place] [facility] PULSE 79 09/17/2023 09:10:00 [place] [facility] Encounters Combined list of: 1) Encounters from Department of Veterans Affairs facilities going backup to the last 18 months, not all VA inpatient encounters are included; 2) Encounters from the Department of Defense facilities going backup to 280 months. Location Location Details Encounter Type Encounter Number Reason For Visit Attending Provider ADM Date DC Date Status Disposition Source [facility] OFFICE O/P EST LOW 20 MIN [id number] Diagnos is: ICD-10- CM Z00.00 Encntr for general adult medical exam w/o abnorma l finding s LILLIANA LARA STEAmaya G 03/31 [place] [facility] Outpatient Encounter [id number] 04/09 [facility] N [facility] Outpatient Encounter [id number] 04/17 [facility] N [facility] Outpatient Encounter [id number] 04/17 [facility] Outpatient Encounter [id number] 04/20 [facility] Outpatient Encounter [id number] 04/23 [facility] Outpatient Encounter [id number] 05/19 [facility] Outpatient Encounter [id number] 05/31 [facility] Outpatient Encounter [id number] 06/01 [facility] [place] [facility] [place] [id number] Diagnos is: ICD-10- CM H04.123 Dry eye syndrom e of bilater al lacrima l glands LOPEZ,GABE LA S 06/15 [place] [facility] OFF/OP EST JULY X REQ PHY/QHP [id number] Diagnos is: ICD-10- CM R05.1 Acute cough JOE ESCOBAR R 06/21 [facility] Outpatient Encounter [id number] AMITA WARD 06/21 [facility] OFFICE O/P EST LOW 20 MIN [id number] Diagnos is: ICD-10- CM J01.80 Other acute sinusit is LILLIANA LARA 06/21 [facility] Outpatient Encounter [id number] 07/27 [facility] Outpatient Encounter [id number] 08/04 [facility] Outpatient Encounter [id number] 08/10 [facility] [id number] 08/10 [place] [facility] Outpatient Encounter [id number] 09/07 [facility] OFF/OP EST MAY X REQ PHY/QHP [id number] Diagnos is: ICD-10- CM R10.30 Lower abdomin al pain, unspeci fied DANIA BLANCO 09/09 [facility] OFF/OP EST MAY X REQ PHY/QHP [id number] Diagnos is: ICD-10- CM N20.0 Calculu s of kidney Georges RICKS 09/16 [facility] Outpatient Encounter [id number] 09/28 [facility] Outpatient Encounter [id number] 10/04 [facility] Outpatient Encounter [id number] 10/12 [facility] N [facility] Outpatient Encounter [id number] 10/21 [facility] Outpatient Encounter [id number] 10/26 [facility] Outpatient Encounter [id number] 11/03 [facility] Outpatient Encounter [id number] NITIN MIMS 11/09 [facility] OFF/OP EST MAY X REQ PHY/QHP [id number] Diagnos is: ICD-10- CM K59.09 Other constip ation Georges RICKS 11/15 [facility] En[facility] [id number] 11/16 [facility] OFFICE O/P EST LOW 20 MIN [id number] Diagnos is: ICD-10- CM K56.600 Partial intesti nal obstruc tion, unspeci fied as to cause AMITA WARD 11/18 [facility] [id number] 11/24 [facility] Outpatient Encounter [id number] 11/30 [facility] N [facility] Outpatient Encounter [id number] 12/08 [facility] N [facility] Outpatient Encounter [id number] 1 12/14 [facility] Outpatient Encounter [id number] 12/22 [facility] Outpatient Encounter [id number] 12/28 [facility] Outpatient Encounter [id number] 12/30 [facility] Outpatient Encounter [id number] 01/10 [facility] OFFICE O/P EST LOW 20 MIN [id number] Diagnos is: ICD-10- CM M25.532 Pain in left wrist AMITA WARD 02/08 [facility] Outpatient Encounter [id number] 02/15 [facility] Outpatient Encounter [id number] 02/28 [facility] Outpatient Encounter [id number] 03/10 [facility] [facility] Outpatient Encounter [id number] 03/10 [place] [facility] Outpatient Encounter [id number] 03/18 [facility] Outpatient Encounter [id number] 03/21 [facility] Outpatient Encounter [id number] 03/22 [facility] Outpatient Encounter [id number] AMITA WARD 03/30 [facility] Outpatient Encounter [id number] Diagnos is: ICD-10- CM Z00.00 Encntr for general adult medical exam w/o abnorma l finding s AMITA WARD R 03/30 [facility] Outpatient Encounter [id number] 03/30 [facility] Outpatient Encounter [id number] 04/06 [facility] Outpatient Encounter [id number] 04/07 [facility] Outpatient Encounter [id number] 04/08 [facility] Outpatient Encounter [id number] ALEC ESPINOSA C 04/15 [facility] Outpatient Encounter [id number] 04/18 [facility] Outpatient Encounter [id number] 04/19 [facility] Outpatient Encounter [id number] ESPINOSAALEC NEWSOME FABRICIO C 04/26 [facility] Outpatient Encounter [id number] 05/03 [facility] [id number] 06/01 [facility] Encounter [id number] 06/14 [facility]counter [id number] 06/29 [facility]counter [id number] 07/12 [facility]counter [id number] 08/10 [facility] Encounter [id number] 3 08/10 [facility] Encounter [id number] 08/24 [facility] Encounter [id number] 09/06 [facility] Outpatient Encounter [id number] AMITA WARD 09/15 [place] [facility] Social History Combined list of available smoking, tobacco, and other social history from Department of Defense and Veterans Affairs facilities. Social History Type Response Date Comment Sourc e Tobacco smoking status NHIS [facility] NEVER USED 09/16/2022 [facility] History of tobacco use VA-TOBACCO NEVER USED 05/10/2021 [facility] History of tobacco use VA-TOBACCO NEVER USED 04/11/2020 [facility] History of tobacco use VA-TOBACCO NEVER USED 09/17/2018 [facility] History of tobacco use VA-TOBACCO NEVER USED 04/09/2018 [facility] Plan of Care List of future care activities from Department of Veterans Affairs facilities. Additional future care activities may be listed in the Assessment and Plan section. Date/Time Care Activity Care Activity Detail Facili ty 09/15/2024 AMBULATORY - MEDICINE AM[facility]ULATORY [place] [facility]
--- OUTSIDE RECORDS SUMMARY | 2024-09-15 04:22 | XMS_ITS | Continuity of Care Document ---
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 It does not include entries that were removed or entered in error. Problem Status Onset Date Problem Type Date of Resolution Comments Source Alopecia Active Condition [facility] Depression ([facility] [id number]) Active Condition 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 History of cholecystectomy Active Condition [facility] History of depressive disorder Active Condition Oct 01, 2018 Entered By: GUSTAVO WARD Comment: depression [facility] History of fracture Active Condition [facility] Inflamed seborrheic keratosis Active Condition [facility] Lipoma Active Condition [facility] OTHER SPEC EXAM Active Condition [facility] Overweight Active Condition [facility] Pain of left ankle joint Active Condition [facility] Right knee pain Active Condition [facility] Caregiver annual health check Inactive Condition 09/02/2019 [facility] Diagnosis: ICD-10-CM Z00.00 Encntr for general adult medical exam w/o abnormal findings Active Diagnosis [facility] Diagnosis: ICD-10-CM M25.532 Pain in left wrist Active Diagnosis [facility] Diagnosis: ICD-10-CM K56.600 Partial intestinal obstruction, unspecified as to cause Active Diagnosis [facility] Diagnosis: ICD-10-CM K59.09 Other constipation Active Diagnosis [facility] Diagnosis: ICD-10-CM N20.0 Calculus of kidney Active Diagnosis [facility] Diagnosis: ICD-10-CM R10.30 Lower abdominal pain, unspecified Active Diagnosis [facility] Diagnosis: ICD-10-CM J01.80 Other acute sinusitis Active Diagnosis [facility] Diagnosis: ICD-10-CM R05.1 Acute cough Active Diagnosis [facility] Diagnosis: ICD-10-CM H04.123 Dry eye syndrome of bilateral lacrimal glands Active Diagnosis [place] [facility] Medications Combined list of outpatient medications [...] DAY NEEDED FOR ALLERGY SYMPTOMS ORAL 06/22/2024 [id number] GERMAN LARA ISTEAmaya Licea 2023 90 [facility] FLUTICASONE PROPIONATE 50MCG/SPRAY SOLN,NASAL, 16GM INSTILL 1 SPRAY IN NOSTRIL( S) EVERY MORNING FOR RHINITIS (MUST BE USED DIRECTED FOR MINIMUM OF 21 DAYS TO PROVIDE ADEQUATE BENEFITS ) NASAL 06/22/2024 [id number] 4 GERMAN LRAA ISTEL G 2023 3 [facility] KETOCONAZOL E 2% SHAMPOO USE SHAMPOO TO AFFECTED AREA(S) DIRECTED . LATHER ONTO SCALP 2-3 TIMES WEEKLY. ALLOW TO SIT 5 MINUTES BEFORE RINSING. (EXTERNA L USE ONLY) (SHAKE WELL) TOPICA L ACTIVE 04/05/2025 [id number] AMY OLEARY 2024 120 [place] [facility] LORATADINE 10MG TAB TAKE ONE TABLET BY MOUTH DAILY NEEDED ORAL ACTIVE ABHI GRANADOS [address] [facility] Immunizations Combined list of available immunizations from the Department of Defense and Veterans Affairs facilities. 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 Order Name Results Value Reference Range Date Interpretation Specimen Comments Source URINALYSIS (STL-PB) COLOR OF URINE Light Yellow 03/30 Specimen Type: URINE No comment entered. Ordering Provider: Ricky WARD Report Released Date/Time : Mar 30, 2024 09:48 AM Reporting Lab: [place] [facility] [address] [place] [address] Performin g Lab: [place] [facility] [address] [place] [address] [facility] URINALYSIS (STL-PB) BILIRUBIN.T OTAL [PRESENCE] IN URINE BY TEST STRIP NEGATIVEm g/dL 03/30 Specimen Type: URINE No comment entered. Ordering Provider: Ricky WARD Report Released Date/Time : Mar 30, 2024 09:48 AM Reporting Lab: [place] [facility] [address] [place] [address] 8 Performin g Lab: [place] [facility] [address] [place] [address] [facility] URINALYSIS (STL-PB) PH OF URINE BY TEST STRIP 6.0 5.0 - 8.0 03/30 Specimen Type: URINE No comment entered. Ordering Provider: Ricky WARD Report Released Date/Time : Mar 30, 2024 09:48 AM Reporting Lab: [place] [facility] [address] [place] [address] Performin g Lab: [place] [facility] [address] [place] [address] [facility] URINALYSIS (STL-PB) LEUKOCYTES [#/AREA] IN URINE SEDIMENT BY MICROSCOPY HIGH POWER FIELD 3 /[HPF] 0 - 5 03/30 Specimen Type: URINE No comment entered. Ordering Provider: Ricky WARD Report Released Date/Time : Mar 30, 2024 09:48 AM Reporting Lab: [place] [facility] [address] [place] [address] Performin g Lab: [place] [facility] [address] [place] [address] [facility] URINALYSIS (STL-PB) ERYTHROCYTE S [#/VOLUME] IN URINE SEDIMENT BY MICROSCOPY HIGH POWER FIELD 11 /[HPF] 0 - 5 03/30 H Specimen Type: URINE No comment entered. Ordering Provider: Ricky WARD Report Released Date/Time : Mar 30, 2024 09:48 AM Reporting Lab: [place] [facility] [address] [place] [address] Performin g Lab: [place] [facility] [address] [place] [address] [facility] URINALYSIS (STL-PB) APPEARANCE OF URINE TURBID 03/30 H Specimen Type: URINE No comment entered. Ordering Provider: Ricky WARD Report Released Date/Time : Mar 30, 2024 09:48 AM Reporting Lab: [place] [facility] [address] [place] [address] Performin g Lab: [place] [facility] [address] [place] [address] [facility] URINALYSIS (STL-PB) NITRITE [PRESENCE] IN URINE BY TEST STRIP NEGATIVEm g/dL 03/30 Specimen Type: URINE No comment entered. Ordering Provider: Ricky WARD Report Released Date/Time : Mar 30, 2024 09:48 AM Reporting Lab: [place] [facility] [address] [place] [address] Performin g Lab: [place] [facility] [address] [place] [address] [facility] URINALYSIS (STL-PB) BACTERIA [PRESENCE] IN URINE SEDIMENT BY LIGHT MICROSCOPY RARE/[HPF ] 03/30 H Specimen Type: URINE No comment entered. Ordering Provider: Ricky WARD Report Released Date/Time : Mar 30, 2024 09:48 AM Reporting Lab: [place] [facility] [address] [place] [address] Performin g Lab: [place] [facility] [address] [place] [address] [facility] URINALYSIS (STL-PB) EPITHELIAL CELLS [#/AREA] IN URINE SEDIMENT BY MICROSCOPY LOW POWER FIELD 9 /[HPF] 0 - 5 03/30 H Specimen Type: URINE No comment entered. Ordering Provider: Ricky WARD Report Released Date/Time : Mar 30, 2024 09:48 AM Reporting Lab: [place] [facility] [address] [place] [address] 8 Performin g Lab: [place] [facility] [address] [place] [address] [facility] URINALYSIS (STL-PB) MUCUS [PRESENCE] IN URINE SEDIMENT BY LIGHT MICROSCOPY RARE/[LPF ] 03/30 Specimen Type: URINE No comment entered. Ordering Provider: Ricky WARD Report Released Date/Time : Mar 30, 2024 09:48 AM Reporting Lab: [place] [facility] [address] [place] [address] 8 Performin g Lab: [place] [facility] [address] [place] [address] [facility] URINALYSIS (STL-PB) CALCIUM OXALATE CRYSTALS [PRESENCE] IN URINE SEDIMENT BY LIGHT MICROSCOPY OCCASIONA L/[HPF] 03/30 H Specimen Type: URINE No comment entered. Ordering Provider: Ricky WARD Report Released Date/Time : Mar 30, 2024 09:48 AM Reporting Lab: [place] [facility] [address] [place] [address] 8 Performin g Lab: [place] [facility] [address] [place] [address] 8 [facility] URINALYSIS (STL-PB) GLUCOSE [MASS/VOLUM E] IN URINE BY TEST STRIP NORMALmg/ dL 03/30 Specimen Type: URINE No comment entered. Ordering Provider: Ricky WARD Report Released Date/Time : Mar 30, 2024 09:48 AM Reporting Lab: [place] [facility] [address] [place] [address] 8 Performin g Lab: [place] [facility] [address] [place] [address] 8 [facility] URINALYSIS (STL-PB) PROTEIN [MASS/VOLUM E] IN URINE BY TEST STRIP NEGATIVEm g/dL 03/30 Specimen Type: URINE No comment entered. Ordering Provider: Ricky WARD Report Released Date/Time : Mar 30, 2024 09:48 AM Reporting Lab: [place] [facility] [address] [place] [address] Performin g Lab: [place] [facility] [address] [place] [address] [facility] URINALYSIS (STL-PB) URN.UROBILI NOGEN 2.0 mg/dL 03/30 H Specimen Type: URINE No comment entered. Ordering Provider: Ricky WARD Report Released Date/Time : Mar 30, 2024 09:48 AM Reporting Lab: [place] [facility] [address] [place] [address] 8 Performin g Lab: [place] [facility] [address] [place] [address] 8 [facility] URINALYSIS (STL-PB) HEMOGLOBIN [MASS/VOLUM E] IN URINE BY TEST STRIP NEGATIVEm g/dL 03/30 Specimen Type: URINE No comment entered. Ordering Provider: Ricky WARD Report Released Date/Time : Mar 30, 2024 09:48 AM Reporting Lab: [place] [facility] [address] [place] [address] 8 Performin g Lab: [place] [facility] [address] [place] [address] [facility] URINALYSIS (STL-PB) KETONES [MASS/VOLUM E] IN URINE BY TEST STRIP NEGATIVEm g/dL 03/30 Specimen Type: URINE No comment entered. Ordering Provider: Ricky WARD Report Released Date/Time : Mar 30, 2024 09:48 AM Reporting Lab: [place] [facility] [address] [place] [address] Performin g Lab: [place] [facility] [address] [place] [address] [facility] URINALYSIS (STL-PB) URN.LEUK.ES T. NEGATIVE 03/30 Specimen Type: URINE No comment entered. Ordering Provider: TALIB WARD Report Released Date/Time : Mar 30, 2024 09:48 AM Reporting Lab: [place] [facility] [address] [place] [address] Performin g Lab: [place] [facility] [address] [place] [address] [facility] URINALYSIS (STL-PB) SPECIFIC GRAVITY OF URINE 1.025 1.005 - 1.029 03/30 Specimen Type: URINE No comment entered. Ordering Provider: Ricky WARD Report Released Date/Time : Mar 30, 2024 09:48 AM Reporting Lab: [place] [facility] [address] [place] [address] Performin g Lab: [place] [facility] [address] [place] [address] [facility] COMPREHENS LAUREL METABOLIC PANEL CREATININE [MASS/VOLUM E] IN SERUM OR PLASMA 0.84 mg/dL 0.6 - 1.1 03/30 Specimen Type: PLASMA No comment entered. Ordering Provider: Ricky WARD Report Released Date/Time : Mar 30, 2024 09:48 AM Reporting Lab: [place] [facility] [address] [place] [address] Performin g Lab: [place] [facility] [address] [place] [address] [facility] COMPREHENS LAUREL METABOLIC PANEL UREA NITROGEN [MASS/VOLUM E] IN SERUM OR PLASMA 13 mg/dL 9 - 25 03/30 Specimen Type: PLASMA No comment entered. Ordering Provider: Ricky WARD Report Released Date/Time : Mar 30, 2024 09:48 AM Reporting Lab: [place] [facility] [address] [place] [address] Performin g Lab: [place] [facility] [address] [place] [address] [facility] COMPREHENS LAUREL METABOLIC PANEL GLUCOSE [MASS/VOLUM E] IN SERUM OR PLASMA 91 mg/dL 72 - 99 03/30 Specimen Type: PLASMA No comment entered. Ordering Provider: Ricky WARD Report Released Date/Time : Mar 30, 2024 09:48 AM Reporting Lab: [place] [facility] [address] [place] [address] Performin g Lab: [place] [facility] [address] [place] [address] [facility] COMPREHENS LAUREL METABOLIC PANEL SODIUM [MOLES/VOLU ME] IN SERUM OR PLASMA 140 meq/L 136 - 145 03/30 Specimen Type: PLASMA No comment entered. Ordering Provider: Ricky WARD Report Released Date/Time : Mar 30, 2024 09:48 AM Reporting Lab: [place] [facility] [address] [place] [address] Performin g Lab: [place] [facility] [address] [place] [address] [facility] COMPREHENS LAUREL METABOLIC PANEL POTASSIUM [MOLES/VOLU ME] IN SERUM OR PLASMA 3.8 meq/L 3.5 - 5 03/30 Specimen Type: PLASMA No comment entered. Ordering Provider: Ricky WARD R Report Released Date/Time : Mar 30, 2024 09:48 AM Reporting Lab: [place] [facility] [address] [place] [address] Performin g Lab: [place] [facility] [address] [place] [address] [facility] COMPREHENS LAUREL METABOLIC PANEL CHLORIDE [MOLES/VOLU ME] IN SERUM OR PLASMA 105 meq/L 98 - 107 03/30 Specimen Type: PLASMA No comment entered. Ordering Provider: Ricky WARD R Report Released Date/Time : Mar 30, 2024 09:48 AM Reporting Lab: [place] [facility] [address] [place] [address] Performin g Lab: [place] [facility] [address] [place] [address] [facility] COMPREHENS LAUREL METABOLIC PANEL CARBON DIOXIDE, TOTAL [MOLES/VOLU ME] IN SERUM OR PLASMA 26 meq/L 22 - 31 03/30 Specimen Type: PLASMA No comment entered. Ordering Provider: Ricky WARD Report Released Date/Time : Mar 30, 2024 09:48 AM Reporting Lab: [place] [facility] [address] [place] [address] Performin g Lab: [place] [facility] [address] [place] [address] [facility] COMPREHENS LAUREL METABOLIC PANEL CALCIUM [MASS/VOLUM E] IN SERUM OR PLASMA 9.6 mg/dL 8.4 - 10.4 03/30 Specimen Type: PLASMA No comment entered. Ordering Provider: Ricky WARD Report Released Date/Time : Mar 30, 2024 09:48 AM Reporting Lab: [place] [facility] [address] [place] [address] Performin g Lab: [place] [facility] [address] [place] [address] [facility] COMPREHENS LAUREL METABOLIC PANEL PROTEIN [MASS/VOLUM E] IN SERUM OR PLASMA 8.2 g/dL 6 - 8.6 03/30 Specimen Type: PLASMA No comment entered. Ordering Provider: Ricky WARD Report Released Date/Time : Mar 30, 2024 09:48 AM Reporting Lab: [place] [facility] [address] [place] [address] Performin g Lab: [place] [facility] [address] [place] [address] [facility] COMPREHENS LAUREL METABOLIC PANEL ALBUMIN [MASS/VOLUM E] IN SERUM OR PLASMA 4.5 g/dL 3.4 - 5 03/30 Specimen Type: PLASMA No comment entered. Ordering Provider: Ricky WARD Report Released Date/Time : Mar 30, 2024 09:48 AM Reporting Lab: [place] [facility] [address] [place] [address] Performin g Lab: [place] [facility] [address] [place] [address] [facility] COMPREHENS LAUREL METABOLIC PANEL BILIRUBIN.T OTAL [MASS/VOLUM E] IN SERUM OR PLASMA 0.4 mg/dL 0.2 - 1.2 03/30 Specimen Type: PLASMA No comment entered. Ordering Provider: Ricky WARD R Report Released Date/Time : Mar 30, 2024 09:48 AM Reporting Lab: [place] [facility] [address] [place] [address] Performin g Lab: [place] [facility] [address] [place] [address] [facility] COMPREHENS LAUREL METABOLIC PANEL ALKALINE PHOSPHATASE [ENZYMATIC ACTIVITY/VO LUME] IN SERUM OR PLASMA 56 U/L 40 - 150 03/30 Specimen Type: PLASMA No comment entered. Ordering Provider: Ricky WARD Report Released Date/Time : Mar 30, 2024 09:48 AM Reporting Lab: [place] [facility] [address] [place] [address] Performin g Lab: [place] [facility] [address] [place] [address] [facility] COMPREHENS LAUREL METABOLIC PANEL ASPARTATE AMINOTRANSF ERASE [ENZYMATIC ACTIVITY/VO LUME] IN SERUM OR PLASMA 16 U/L 5 - 34 03/30 Specimen Type: PLASMA No comment entered. Ordering Provider: Ricky WARD R Report Released Date/Time : Mar 30, 2024 09:48 AM Reporting Lab: [place] [facility] [address] [place] [address] Performin g Lab: [place] [facility] [address] [place] [address] 8 [facility] COMPREHENS LAUREL METABOLIC PANEL ALANINE AMINOTRANSF ERASE [ENZYMATIC ACTIVITY/VO LUME] IN SERUM OR PLASMA 21 U/L 8 - 40 03/30 Specimen Type: PLASMA No comment entered. Ordering Provider: Ricky WARD Report Released Date/Time : Mar 30, 2024 09:48 AM Reporting Lab: [place] [facility] [address] [place] [address] Performin g Lab: [place] [facility] [address] [place] [address] [facility] COMPREHENS LAUREL METABOLIC PANEL GLOMERULAR FILTRATION RATE/1.73 SQ M.PREDICTED [VOLUME RATE/AREA] IN SERUM, PLASMA OR BLOOD BY CREATININE- BASED FORMULA (CKD-EPI 2020) 89 03/30 Specimen Type: PLASMA No comment entered. Ordering Provider: Ricky WARD R Report Released Date/Time : Mar 30, 2024 09:48 AM Reporting Lab: [place] [facility] [address] [place] [address] Performin g Lab: [place] [facility] [address] [place] [address] [facility] CBC LEUKOCYTES [#/VOLUME] IN BLOOD BY AUTOMATED COUNT 7.4 10*3/uL 3.6 - 11.2 03/30 Specimen Type: BLOOD No comment entered. Ordering Provider: Ricky WARD R Report Released Date/Time : Mar 30, 2024 09:48 AM Reporting Lab: [place] [facility] [address] [place] [address] Performin g Lab: [place] [facility] [address] [place] [address] [facility] CBC ERYTHROCYTE S [#/VOLUME] IN BLOOD BY AUTOMATED COUNT 4.33 10*6/uL 3.60 - 5.00 03/30 Specimen Type: BLOOD No comment entered. Ordering Provider: Ricky WARD R Report Released Date/Time : Mar 30, 2024 09:48 AM Reporting Lab: [place] [facility] [address] [place] [address] Performin g Lab: [place] [facility] [address] [place] [address] 8 [facility] CBC HEMOGLOBIN [MASS/VOLUM E] IN BLOOD 13.9 g/dL 11.0 - 14.9 03/30 Specimen Type: BLOOD No comment entered. Ordering Provider: Ricky WARD R Report Released Date/Time : Mar 30, 2024 09:48 AM Reporting Lab: [place] [facility] [address] [place] [address] Performin g Lab: [place] [facility] [address] [place] [address] [facility] CBC HEMATOCRIT [VOLUME FRACTION] OF BLOOD 40.5 32.6 - 43.4 03/30 Specimen Type: BLOOD No comment entered. Ordering Provider: Ricky WARD Report Released Date/Time : Mar 30, 2024 09:48 AM Reporting Lab: [place] [facility] [address] [place] [address] Performin g Lab: [place] [facility] [address] [place] [address] [facility] CBC MCV [ENTITIC VOLUME] BY AUTOMATED COUNT 93.5 fL 80.0 - 100.0 03/30 Specimen Type: BLOOD No comment entered. Ordering Provider: Ricky WARD Report Released Date/Time : Mar 30, 2024 09:48 AM Reporting Lab: [place] [facility] [address] [place] [address] Performin g Lab[facility] [place] [facility] [address] [place] [id number] [facility] CBC MCH [ENTITIC MASS] BY AUTOMATED COUNT 32.1 pg 27.0 - 34.0 03/30 Specimen Type: BLOOD No comment entered. Ordering Provider: Ricky WARD Report Released Date/Time : Mar 30, 2024 09:48 AM Reporting Lab: [place] [facility] [facility] [address] [place] [address] Performin g Lab: [place] [facility] [address] [place] [address] [facility] CBC MCHC [MASS/VOLUM E] BY AUTOMATED COUNT 34.3 g/dL 33.0 - 36.0 03/30 Specimen Type: BLOOD No comment entered. Ordering Provider: Ricky WARD R Report Released Date/Time : Mar 30, 2024 09:48 AM Reporting Lab: [place] [facility] [address] [place] [address] 8 Performin g Lab: [place] [facility] [address] [place] [address] [facility] CBC PLATELETS [#/VOLUME] IN BLOOD BY AUTOMATED COUNT 338 10*3/uL 150 - 400 03/30 Specimen Type: BLOOD No comment entered. Ordering Provider: Ricky WARD R Report Released Date/Time : Mar 30, 2024 09:48 AM Reporting Lab: [place] [facility] [address] [place] [address] Performin g Lab: [place] [facility] [address] [place] [address] [facility] CBC PLATELET MEAN VOLUME [ENTITIC VOLUME] IN BLOOD BY AUTOMATED COUNT 9.7 fL 7.5 - 11.2 03/30 Specimen Type: BLOOD No comment entered. Ordering Provider: Ricky WARD Report Released Date/Time : Mar 30, 2024 09:48 AM Reporting Lab: [place] [facility] [address] [place] [address] Performin g Lab: [place] [facility] [address] [place] [address] 8 [facility] CBC ERYTHROCYTE DISTRIBUTIO N WIDTH [RATIO] BY AUTOMATED COUNT <11.8 11.8 - 15.1 03/30 Specimen Type: BLOOD No comment entered. Ordering Provider: Ricky WARD Report Released Date/Time : Mar 30, 2024 09:48 AM Reporting Lab: [place] [facility] [address] [place] [address] 8 Performin g Lab: [place] [facility] [address] [place] [address] 8 [facility] CBC LYMPHOCYTES /100 LEUKOCYTES IN BLOOD BY AUTOMATED COUNT 33.3 03/30 Specimen Type: BLOOD No comment entered. Ordering Provider: Ricky WARD R Report Released Date/Time : Mar 30, 2024 09:48 AM Reporting Lab: [place] [facility] [address] [place] [address] 8 Performin g Lab: [place] [facility] [address] [place] [address] 8 [facility] CBC MONOCYTES/1 00 LEUKOCYTES IN BLOOD BY AUTOMATED COUNT 6.3 03/30 Specimen Type: BLOOD No comment entered. Ordering Provider: Ricky WARD R Report Released Date/Time : Mar 30, 2024 09:48 AM Reporting Lab: [place] [facility] [address] [place] [address] 8 Performin g Lab: [place] [facility] [address] [place] [address] 8 [facility] CBC NEUTROPHILS /100 LEUKOCYTES IN BLOOD BY AUTOMATED COUNT 56.3 03/30 Specimen Type: BLOOD No comment entered. Ordering Provider: Ricky WARD Report Released Date/Time : Mar 30, 2024 09:48 AM Reporting Lab: [place] [facility] [address] [place] [address] 8 Performin g Lab: [place] [facility] [address] [place] [address] 8 [facility] CBC EOSINOPHILS /100 LEUKOCYTES IN BLOOD BY AUTOMATED COUNT 2.8 03/30 Specimen Type: BLOOD No comment entered. Ordering Provider: Ricky WARD Report Released Date/Time : Mar 30, 2024 09:48 AM Reporting Lab: [place] [facility] [address] [place] [address] 8 Performin g Lab: [place] [facility] [address] [place] [address] 8 [facility] CBC BASOPHILS/1 00 LEUKOCYTES IN BLOOD BY AUTOMATED COUNT 0.9 03/30 Specimen Type: BLOOD No comment entered. Ordering Provider: Ricky WARD Report Released Date/Time : Mar 30, 2024 09:48 AM Reporting Lab: [place] [facility] [address] [place] [address] 8 Performin g Lab: [place] [facility] [address] [place] [address] 8 [facility] CBC LYMPHOCYTES [#/VOLUME] IN BLOOD BY AUTOMATED COUNT 2.48 10*3/uL 0.77 - 4.50 03/30 Specimen Type: BLOOD No comment entered. Ordering Provider: Ricky WARD Report Released Date/Time : Mar 30, 2024 09:48 AM Reporting Lab: [place] [facility] [address] [place] [address] 8 Performin g Lab: [place] [facility] [address] [place] [address] 8 [facility] CBC MONOCYTES [#/VOLUME] IN BLOOD BY AUTOMATED COUNT 0.47 10*3/uL 0.19 - 0.8 03/30 Specimen Type: BLOOD No comment entered. Ordering Provider: Ricky WARD Report Released Date/Time : Mar 30, 2024 09:48 AM Reporting Lab: [place] [facility] [address] [place] [address] 8 Performin g Lab: [place] [facility] [address] [place] [address] 8 [facility] CBC NEUTROPHILS [#/VOLUME] IN BLOOD BY AUTOMATED COUNT 4.18 10*3/uL 2.10 - 8.00 03/30 Specimen Type: BLOOD No comment entered. Ordering Provider: Ricky WARD Report Released Date/Time : Mar 30, 2024 09:48 AM Reporting Lab: [place] [facility] [address] [place] [address] 8 Performin g Lab: [place] [facility] [address] [place] [address] 8 [facility] CBC EOSINOPHILS [#/VOLUME] IN BLOOD BY AUTOMATED COUNT 0.21 10*3/uL 0.00 - 0.60 03/30 Specimen Type: BLOOD No comment entered. Ordering Provider: Ricky WARD Report Released Date/Time : Mar 30, 2024 09:48 AM Reporting Lab: [place] [facility] [address] [place] [address] 8 Performin g Lab: [place] [facility] [address] [place] [address] 8 [facility] CBC BASOPHILS [#/VOLUME] IN BLOOD BY AUTOMATED COUNT 0.07 10*3/uL 0.00 - 0.20 03/30 Specimen Type: BLOOD No comment entered. Ordering Provider: Ricky WARD Report Released Date/Time : Mar 30, 2024 09:48 AM Reporting Lab: [place] [facility] [address] [place] [address] 8 Performin g Lab: [place] [facility] [address] [place] [address] 8 [facility] CBC IMMATURE GRANULOCYTE S/100 LEUKOCYTES IN BLOOD BY AUTOMATED COUNT 0.4 03/30 Specimen Type: BLOOD No comment entered. Ordering Provider: Ricky WARD Report Released Date/Time : Mar 30, 2024 09:48 AM Reporting Lab: [place] [facility] [address] [place] [address] 8 Performin g Lab: [place] [facility] [address] [place] [address] 8 [facility] CBC IMMATURE GRANULOCYTE S [#/VOLUME] IN BLOOD BY AUTOMATED COUNT 0.03 10*3/uL 0.00 - 0.05 03/30 Specimen Type: BLOOD No comment entered. Ordering Provider: Ricky WARD Report Released Date/Time : Mar 30, 2024 09:48 AM Reporting Lab: [place] [facility] [address] [place] [address] 8 Performin g Lab: [place] [facility] [address] [place] [address] 8 [facility] TSH (MA-PB) THYROTROPIN [UNITS/VOLU ME] IN SERUM OR PLASMA 0.636 u[IU]/mL 0.47 - 5 03/30 Specimen Type: SERUM No comment entered. Ordering Provider: Ricky WARD Report Released Date/Time : Mar 30, 2024 09:48 AM Reporting Lab: [place] [facility] [address] [place] [address] 8 Performin g Lab: [place] [facility] [address] [place] [address] 8 [facility] CHOLESTERO L PANEL (PB) CHOLESTEROL [MASS/VOLUM E] IN SERUM OR PLASMA 163 mg/dL 0 - 200 03/30 Specimen Type: PLASMA No comment entered. Ordering Provider: Ricky WARD Report Released Date/Time : Mar 30, 2024 09:48 AM Reporting Lab: [place] [facility] [address] [place] [address] 8 Performin g Lab: [place] [facility] [address] [place] [address] 8 [facility] CHOLESTERO L PANEL (PB) TRIGLYCERID E [MASS/VOLUM E] IN SERUM OR PLASMA 122 mg/dL 0 - 150 03/30 Specimen Type: PLASMA No comment entered. Ordering Provider: Ricky WARD R Report Released Date/Time : Mar 30, 2024 09:48 AM Reporting Lab: [place] [facility] [address] [place] [address] 8 Performin g Lab: [place] [facility] [address] [place] [address] 8 [facility] CHOLESTERO L PANEL (PB) CHOLESTEROL IN LDL [MASS/VOLUM E] IN SERUM OR PLASMA BY CALCULATION 95.1 mg/dL 03/30 Specimen Type: PLASMA No comment entered. Ordering Provider: Ricky WARD Report Released Date/Time : Mar 30, 2024 09:48 AM Reporting Lab: [place] [facility] [address] [place] [address] 8 Performin g Lab: [place] [facility] [address] [place] [address] 8 [facility] CHOLESTERO L PANEL (PB) CHOLESTEROL IN HDL [MASS/VOLUM E] IN SERUM OR PLASMA 43.5 mg/dL 40 03/30 H Specimen Type: PLASMA No comment entered. Ordering Provider: Ricky WARD R Report Released Date/Time : Mar 30, 2024 09:48 AM Reporting Lab: [place] [facility] [address] [place] [address] 8 Performin g Lab: [place] [facility] [address] [place] [address] 8 [facility] CHOLESTERO L PANEL (PB) CHOLESTEROL IN HDL/CHOLEST YAN.TOTAL [MASS RATIO] IN SERUM OR PLASMA 26.7 25 03/30 Specimen Type: PLASMA No comment entered. Ordering Provider: Ricky WARD Report Released Date/Time : Mar 30, 2024 09:48 AM Reporting Lab: [place] [facility] [address] [place] [address] 8 Performin g Lab: [place] [facility] [address] [place] [address] [facility] HGA1C HEMOGLOBIN A1C/HEMOGLO BIN.TOTAL IN BLOOD 5.0 4.0 - 6.0 03/30 Specimen Type: BLOOD No comment entered. Ordering Provider: Ricky WARD Report Released Date/Time : Mar 30, 2024 09:48 AM Reporting Lab: [place] [facility] [address] [place] [address] 8 Performin g Lab: [place] [facility] [address] [place] [address] 8 [facility] VITAMIN D, 25-HYDROXY 25-HYDROXYV ITAMIN D3 [MASS/VOLUM E] IN SERUM OR PLASMA 46.8 ng/mL 30 - 96 03/30 Specimen Type: SERUM No comment entered. Ordering Provider: Ricky WARD Report Released Date/Time : Mar 30, 2024 09:48 AM Reporting Lab: [place] [facility] [address] [place] [address] 8 Performin g Lab: [place] [facility] [address] [place] [phone] 8 [facility] FERRITIN FERRITIN [MASS/VOLUM E] IN SERUM OR PLASMA 231 ng/mL 10 - 204 03/30 H Specimen Type: SERUM No comment entered. Ordering Provider: Ricky WARD Report Released Date/Time : Mar 30, 2024 09:57 AM Reporting Lab: [place] [facility] [address] [place] [address] 8 Performin g Lab: [place] [facility] [address] [place] [address] 8 [facility] FOLATE (PB) FOLATE [MASS/VOLUM E] IN SERUM OR PLASMA 5.6 ng/mL 7 - 20 03/30 L Specimen Type: SERUM No comment entered. Ordering Provider: Ricky WARD Report Released Date/Time : Mar 30, 2024 09:57 AM Reporting Lab: [place] [facility] [address] [place] [address] Performin g Lab: [place] [facility] [address] [place] [address] [place] [facility] IRON IRON [MASS/VOLUM E] IN SERUM OR PLASMA 78 ug/dL 50 - 170 03/30 Specimen Type: PLASMA No comment entered. Ordering Provider: Ricky WARD Report Released Date/Time : Mar 30, 2024 09:57 AM Reporting Lab: [place] [facility] [address] [place] [address] Performin g Lab: [place] [facility] [address] [place] [address] [place] [facility] Vital Signs Combined list of inpatient and outpatient Vital Signs from Department of Defense and Veterans Affairs, ranging from 12 months to all on record, depending upon the facility. Vital Sign Value Date Comments Source SYSTOLIC BLOOD PRESSURE 118 09/15/2024 08:34:00 [place] [facility] DIASTOLIC BLOOD PRESSURE 89 09/15/2024 08:34:00 [place] [facility] PULSE OXIMETRY 97 % 09/15/2024 08:34:00 [facility] WEIGHT 152.9 09/15/2024 08:34:00 [place] [facility] BMI 28 kg/m2 09/15/2024 08:34:00 [facility] PAIN 6 09/15/2024 08:34:00 [place] [facility] HEIGHT 62.5 09/15/2024 08:34:00 [place] [facility] PULSE 94 09/15/2024 08:34:00 [place] [facility] RESPIRATION 16 09/15/2024 08:34:00 [place] [facility] SYSTOLIC BLOOD PRESSURE 110 02/09/2024 08:44:00 [place] [facility] DIASTOLIC BLOOD PRESSURE 77 02/09/2024 08:44:00 [place] [facility] PULSE OXIMETRY 99 02/09/2024 08:44:00 [facility] [place] [facility] WEIGHT 149.0 02/09/2024 08:44:00 [place] [facility] BMI 27 kg/m2 02/09/2024 08:44:00 [facility] [place] [facility] PAIN 3 02/09/2024 08:44:00 [facility] [place] [facility] HEIGHT 62.5 02/09/2024 08:44:00 [place] [facility] TEMPERATURE 97.8 02/09/2024 08:44:00 [place] [facility] PULSE 81 02/09/2024 08:44:00 [place] [facility] RESPIRATION 18 02/09/2024 08:44:00 [place] [facility] PULSE OXIMETRY 97 11/19/2023 14:34:00 [facility] WEIGHT 140.9 11/19/2023 14:34:00 [place] [facility] BMI 25 kg/m2 11/19/2023 14:34:00 [place] [facility] PAIN 0 11/19/2023 14:34:00 [place] [facility] HEIGHT 62.5 11/19/2023 14:34:00 [place] [facility] PULSE 84 11/19/2023 14:34:00 [place] [facility] RESPIRATION 18 11/19/2023 14:34:00 [place] [facility] SYSTOLIC BLOOD PRESSURE 105 09/17/2023 09:10:00 [place] [facility] DIASTOLIC BLOOD PRESSURE 68 09/17/2023 09:10:00 [facility] PULSE OXIMETRY 99 09/17/2023 09:10:00 [facility] WEIGHT 149.0 09/17/2023 09:10:00 [place] [facility] BMI 27 kg/m2 09/17/2023 09:10:00 [place] [facility] TEMPERATURE 97.8 09/17/2023 09:10:00 [place] [facility] PULSE 79 09/17/2023 09:10:00 [place] [place] [facility] Encounters Combined list of: 1) Encounters from Department of Veterans Affairs facilities going backup to the last 18 months, not all VA inpatient encounters are included; 2) Encounters from the Department of Defense facilities going backup to 280 months. Location Location Details Encounter Type Encounter Number Reason For Visit Attending Provider ADM Date DC Date Status Disposition Source [facility] OFFICE O/P EST LOW 20 MIN [id number] Diagnos is: ICD-10- CM Z00.00 Encntr for general adult medical exam w/o abnorma l finding s LILLIANA LARA STEAmaya G 03/31 [place] [facility] Outpatient Encounter [id number] 04/09 [facility] Outpatient Encounter [id number] 04/17 [facility] Outpatient Encounter [id number] 04/17 [facility] Outpatient Encounter [id number] 04/20 [facility] Outpatient Encounter [id number] 04/23 [facility] Outpatient Encounter [id number] 05/19 [facility] Outpatient Encounter [id number] 05/31 [facility] Outpatient Encounter [id number] 06/01 [facility] [place] [facility] [place] [id number] Diagnos is: ICD-10- CM H04.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 Outpatient Encounter [id number] AMITA WARD 06/21 [facility] OFFICE O/P EST LOW 20 MIN [id number] Diagnos is: ICD-10- CM J01.80 Other acute sinusit is LILLIANA LARA 06/21 [facility] Outpatient Encounter [id number] 07/27 [facility] Outpatient Encounter [id number] 08/04 [facility] Outpatient Encounter [id number] 08/10 [facility] [place] [facility] Outpatient Encounter [id number] 08/10 [place] [facility] Outpatient Encounter [id number] 09/07 [facility] OFF/OP EST MAY X REQ PHY/QHP [id number] Diagnos is: ICD-10- CM R10.30 Lower abdomin al pain, unspeci fied DANIA BLANCO [facility] MAY X REQ PHY/QHP [id number] Diagnos is: ICD-10- CM N20.0 Calculu s of kidney Georges RICKS 09/16 [facility] Outpatient Encounter [id number] 09/28 [facility] Outpatient Encounter [id number] 10/04 [facility] Outpatient Encounter [id number] 10/12 [facility] Outpatient Encounter [id number] 10/21 [facility] Outpatient Encounter [id number] 10/26 [facility] Outpatient Encounter [id number] 11/03 [facility] Outpatient Encounter [id number] NITIN MIMS 11/09 [facility] OFF/OP EST MAY X REQ PHY/QHP [id number] Diagnos is: ICD-10- CM K59.09 Other constip ation Georges RICKS 11/15 [facility] En[facility] [id number] 11/16 [facility] OFFICE O/P EST LOW 20 MIN [id number] Diagnos is: ICD-10- CM K56.600 Partial intesti nal obstruc tion, unspeci fied as to cause AMITA WARD 11/18 [facility] [id number] 11/24 [facility] Outpatient Encounter [id number] 11/30 [facility] Outpatient Encounter [id number] 12/08 [facility] Outpatient Encounter [id number] 12/14 [facility] Outpatient Encounter [id number] 12/22 [facility] Outpatient Encounter [id number] 12/28 [facility] Outpatient Encounter [id number] 12/30 [facility] Outpatient Encounter [id number] 01/10 [facility] OFFICE O/P EST LOW 20 MIN [id number] Diagnos is: ICD-10- CM M25.532 Pain in left wrist AMITA WARD 02/08 [facility] Outpatient Encounter [id number] 02/15 [facility] Outpatient Encounter [id number] 02/28 [facility] Outpatient Encounter [id number] 03/10 [facility] [place] [facility] Outpatient Encounter [id number] 03/10 [place] [facility] Outpatient Encounter [id number] 03/18 [facility] Outpatient Encounter [id number] 03/21 [facility] Outpatient Encounter [id number] 03/22 [facility] Out[facility] Encounter [id number] AMITA WARD 03/30 [facility] Outpatient Encounter [id number] Diagnos is: ICD-10- CM Z00.00 Encntr for general adult medical exam w/o abnorma l finding s AMITA WARD R 03/30 [facility] Outpatient Encounter [id number] 03/30 [facility] Outpatient Encounter [id number] 04/06 [facility] Outpatient Encounter [id number] 04/07 [facility] Outpatient Encounter [id number] 04/08 [facility] Outpatient Encounter [id number] ALEC ESPINOSA C 04/15 [facility] Outpatient Encounter [id number] 04/18 [facility] Out[facility] Encounter [id number] 04/19 [facility] Outpatient Encounter [id number] ESPINOSAALEC NEWSOME FABRICIO C 04/26 [facility] Outpatient Encounter [id number] 05/[facility] En[facility] [id number] 3 06/01 [facility] En[facility] [id number] 06/14 [facility] En[facility] [id number] 3 06/29 [facility] En[facility] [id number] 07/12 [facility] En[facility] [id number] 08/10 [facility] En[facility] [id number] 3 08/10 [facility] En[facility] [id number] 1 08/24 [facility] En[facility] [id number] 09/06 [facility] Outpatient Encounter [id number] AMITA WARD 09/15 [place] [facility] Social History Combined list of available smoking, tobacco, and other social history from [facility] and [facility] facilities. Social History Type Response Date Comment Sourc e Tobacco smoking status NHIS [facility]-TOBACCO NEVER USED 09/16/2022 [facility] History of tobacco use VA-TOBACCO NEVER USED 05/10/2021 [facility] History of tobacco use VA-TOBACCO NEVER USED 04/11/2020 [facility] History [facility] tobacco use VA-TOBACCO NEVER USED 09/17/2018 [facility] History of tobacco use VA-TOBACCO NEVER USED 04/09/2018 [facility] Plan of Care List of future care activities from [facility] facilities. Additional future care activities may be listed in the Assessment and Plan section. Date/Time Care Activity Care Activity Detail Facili ty 09/15/2024 AMBULATORY - MEDICINE AMBULATORY - [facility]ICI [place] [facility]
--- OUTSIDE RECORDS SUMMARY | 2024-09-15 05:41 | XMS_ITS | Encounter Summary ---
Author Name [facility] [place] [facility] [place] [facility] [place] Address [address] [place] [address] Care Team Providers Care Supervisor Color Making Name Role Phone ABHI GRANADOS Primary Care [...] Policy Almanzar [facility] Mar 23, 2023 [id number] [phone] LUIS BELTRÁN PATIENT [facility]* [facility] Mar 23, 2023 [id number] [phone] LUIS BELTRÁN PATIENT [facility] RX PRESCRIPT ION RX PLAN Mar 23, 2023 UNITEDR X [id number] [phone] LUIS BELTRÁN PATIENT [facility] RX PRESCRIPT ION RX PLAN Mar 23, 2019 [facility] [id number] [phone] LEROY AREVALO PATIENT [facility] [place] [id number] [facility] Mar 23, 2023 UNITEDR X [id number] [phone] LUIS BELTRÁN PATIENT [facility] Mar 23, 2019 [id number] [phone] ISRAEL RODRIGUES PATIENT [facility] POINT OF SERVICE [facility] Mar 23, 2023 [id number] [phone] LUIS BELTRÁN PATIENT [facility] * HIGH DEDUCTIBL E HEALTH PLAN W/HEALTH SAVINGS ACCOUNT [facility]HP HSA Mar 23, 2023 [id number] [phone] LUIS BELTRÁN PATIENT Selected Encounter This section includes the information on record at [place] for the Encounter. Date/Time Encounter Type Encounter Description Reason Provider Source Sep 15, 2024 10:41 AM Outpatient Encounter [facility] CONSULT ALISON MIMS Juan Encounter Template Text not used by [place] Plan of Treatment: Future Appointments (+ 6 months) and Future Tests (+/- 45 days) The Plan of Treatment section includes future care activities for the patient from all [place] treatmentfacilities. This section includes future appointments and future orders which are active, pending or scheduled. Active, Pending, and Scheduled Orders This section includes a listing of several types of active, pending, and scheduled orders, including clinic medications orders, diagnostic test orders, procedure orders and consult orders; where the start date of the order is 45 days before the date of the Encounter or 45 days after the date of theEncounter. The data comes from all [place] treatment facilities. Test Date/Time Test Type Test Details Facility Name August 10, 2024 10:12 AM Consult Order [facility]IROPRA[facility] [id number] Cons [employer] [facility] Encounter Notes: All associated encounter notes This section contains the clinical notes associated to the Encounter. Date/Time Encounter Note(s) Provider Source Sep 15, 2024 10:41 AM NON[facility] NOTE: LOCAL TITLE: [facility] SELF PRESENTING CARE COORD PLAN STANDARD TITLE: NONVA NOTE DATE OF NOTE: SEP 15, 2024@10:41 ENTRY DATE: SEP 15, 2024@10:41:47 AUTHOR: ALISON MIMS EXP COSIGNER: URGENCY: STATUS: COMPLETED Emergency Notification Intake Date Presenting to the Facility: 09/15/2024 9:03 AM CDT Method of Contact: Provider Notified from ECR worklist Notification ID: [id number] [facility] Referral #: [id number] Clinical Review Community [facility] Name: Hospital: [facility] Address: City: [place] State: [place] Zip Code: Phone : Community Facility Point of Contact: Name: Phone: Chief complaint: ABD Pain Primary Diagnosis: Disposition: Unknown at time of intake note entry 1st MRR sent to [facility] /griselda/ ALISON Amaya GUZMAN,RN Signed: 09/15/2024 10:45 ALISON MIMS [facility]
--- OUTSIDE RECORDS SUMMARY | 2024-09-15 09:24 | XMS_ITS | Encounter Summary ---
Author Organization [employer] [facility] Address [address] [place] [address] Care Team Providers Care Mower Operator Name Role Phone Unavailable Primary Care Provider Unavailabl e Encounter Details Date Type Department Care Team (Latest Contact Info) Description 02/28/2002 Outpatient Historical [facility] E Callahan [address] 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
--- OUTSIDE RECORDS SUMMARY | 2024-09-15 09:24 | XMS_ITS | Clinical Summary ---
Author Organization [facility] Address [address] 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
--- NOTE | 2024-09-15 09:26 | PC.PHAR ---
[facility] 09/15/24 9:26am
--- NOTE | 2024-09-15 09:28 | CT_ITS ---
WS: [id number] CT ABDOMEN AND PELVIS WITH CONTRAST HISTORY: Abdominal pain, umbilical pain with nausea and vomiting. TECHNIQUE: Imaging performed of the abdomen and pelvis with IV contrast. Single phase imaging of the abdomen. Coronal and sagittal reformats are submitted. All CT scans at [facility] use at least one of these dose optimization techniques: automated exposure control; mA and/or kV adjustment per patient size (includes targeted exams where dose is matched to clinical indication); or iterative reconstruction. IV CONTRAST: Omnipaque 350; 100 mL IV. Oral contrast: No DLP: 471.71 mGy.cm COMPARISON: 11/10/2023 Lower thorax: Lung bases are clear. Heart is normal size. Small hiatal hernia. Bilateral breast implants. Liver/biliary system: Normal size liver with a few small cysts. No intrahepatic duct dilatation. Gallbladder: Prior cholecystectomy. Pancreas: Normal size pancreas and pancreatic duct. No adjacent inflammation. Spleen: Normal size spleen. No mass or infarct. Adrenal glands: Normal. Right kidney: Normal. Left kidney: Normal. Aorta: Normal. Lymphadenopathy: None. Free fluid: Small amount of free fluid in the pelvis. GI tract: Stomach is moderately distended with fluid. High-grade small bowel obstruction. Small bowel contains fluid and air in the diameter of the loops measuring at least 3.4 cm. Distal small bowel is not dilated. Transition point in the distal jejunum or proximal ileum. Appendix is normal. Nondistended colon. Abdominal wall: Small umbilical hernia. Pelvis: Free fluid in the pelvis. Prior hysterectomy. LEFT ovary is identified. RIGHT ovary may also be present but more difficult to identify. Bones: Unremarkable. CT/CT abdomen pelvis w con* [id number] IMPRESSION: 1. High-grade mid to distal small bowel obstruction. 2. No free air. 3. Small amount of free fluid in the pelvis. 4. Small hiatal hernia. 5. Small umbilical hernia. 6. Prior cholecystectomy. 7. Normal appendix.
--- NOTE | 2024-09-15 09:31 | W.ED.ABDPA2 ---
HPI - Abdominal Pain General: Chief Complaint: Abdominal Pain Stated Complaint: [facility] Time Seen by Provider: 09/15/24 09:18 History of Present Illness: 43-year-old female who presents emergency room with mid lower abdominal pain. This started last night. She went to see her PCP who sent her to the emergency room. She has a history of cholecystectomy and hysterectomy and she reports a history of having a bowel blockage in the past. She has had nausea vomiting and diarrhea. No fevers. Related Data Home Medications ?Medication ?Instructions ?Recorded ?Confirmed cetirizine 10 mg capsule (All Day 10 mg PO DAILY PRN ALLERGIES 10/30/23 09/15/24 Allergy (cetirizine)) fluticasone propionate 50 1 spray intranasal DAILY PRN 09/15/24 09/15/24 mcg/actuation nasal allergies spray,suspension ketoconazole 2 % shampoo 1 applic topical .2-3XWEEKLY 09/15/24 09/15/24 Allergies Allergy/AdvReac Type Severity Reaction Status Date / Time No Known Allergies Allergy Verified 09/15/24 09:17 Review of Systems Narrative: Constitutional symptoms: Negative except as documented in HPI. Skin symptoms: Negative except as documented in HPI. Eye symptoms: Negative except as documented in HPI. ENMT symptoms: Negative except as documented in HPI. Respiratory symptoms: Negative except as documented in HPI. Cardiovascular symptoms: Negative except as documented in HPI. Gastrointestinal symptoms: Negative except as documented in HPI. Genitourinary symptoms: Negative except as documented in HPI. Musculoskeletal symptoms: Negative except as documented in HPI. Neurologic symptoms: Negative except as documented in HPI. Psychiatric symptoms: Negative except as documented in HPI. Endocrine symptoms: Negative except as documented in HPI. PFSH ED PFSH: Medical History Chronic cystitis Uterine prolapse Hx LEEP (loop electrosurgical excision procedure), cervix, Contraception management Surgical History H/O: hysterectomy History of bunionectomy (~01/2022) Performed by Dr. Damon at [facility] in [place], [place] History of cholecystectomy History of breast augmentation H/O eye surgery 2008- Lasik bilateral eyes H/O oral surgery wisdom teeth extraction Family History Grandfather CAD (coronary artery disease) maternal Mother No problems noted. Grandmother CAD (coronary artery disease) maternal Family/Other Breast cancer maternal aunt, age onset 32-34 Rectal cancer maternal aunt Father No problems noted. Social History Smoking and tobacco/nicotine status: never used tobacco/nicotine Alcohol intake: current Alcohol intake frequency: holidays/special occasions only Alcohol type: wine and hard liquor Substance/Drug Use: never Marital status: Current occupational status: employed Physical Exam Narrative: EXAM NARRATIVE: General: Alert, no acute distress. Skin: Warm, dry. Head: Normocephalic, atraumatic. Neck: Supple, trachea midline. Eye: Extraocular movements are intact. Ears, nose, mouth and throat: mucosa moist. Cardiovascular: Regular, Normal peripheral perfusion. Respiratory: Lungs are clear to auscultation, respirations are non-labored, breath sounds are equal, Symmetrical chest wall expansion. Gastrointestinal: Soft, lower abdominal tenderness, Non distended Musculoskeletal: Normal ROM, no deformity. Neurological: Alert and oriented, No focal neurological deficit observed. Psychiatric: Cooperative, appropriate mood & affect. Course Vital Signs: Vital signs: Vital Signs Temperature 98.3 F 09/15/24 09:13 Pulse Rate 104 H 09/15/24 09:13 Blood Pressure 114/83 09/15/24 09:13 Pulse Oximetry 96 09/15/24 09:13 Oxygen Delivery Me thod Room Air 09/15/24 09:13 MDM - Abdominal Pain Medical Decision Making Medical decision making: Differential diagnosis for this patient with nausea and vomiting including but not limited to and based on the above HPI, review of systems and physical exam: Urinary tract infection. Appendicitis. Cholecystitis. Colitis. small bowel obstruction. crohn's flare. pancreatitis. gastritis. peptic ulcer. cyclic vomiting. Viral illness. Influenza. COVID. Orders placed to evaluate differential diagnosis based on the above differential, HPI and physical exam Lab Review: Laboratory results were reviewed and interpreted by myself the emergency room physician. Mild leukocytosis with a white count of 12. No anemia. CT of the abdomen pelvis with contrast: High-grade mid to distal small bowel obstruction. No free air. Other findings listed below. This was reviewed and interpreted by myself the emergency room physician. I also reviewed the radiology report. I reviewed the patient's medical record. Reexamination: I discussed with the patient that she had a recurrent small bowel obstruction. She expresses understanding. Patient remained stable. No increased work of breathing. No altered mental status. No focal motor deficits. Still with some abdominal pain Consultation: I spoke with Dr. Valente who is on-call for general surgery. He recommends admission to the hospital service and NG tube placement. Consultation: I spoke with Dr. Calvert with the hospitalist service who agrees to admission. Assessment and plan: Small bowel obstruction ?NG tube placement. Dilmarcelinaid. Bennett. -I discussed the patient with the hospitalist on-call who is admitting the patient. - Discussed findings and plan with patient. Answered any questions. - All laboratory values were reviewed and interpreted personally by myself, the ER physician - All imaging was reviewed and interpreted personally by myself, the ER physician. - Evaluation and treatment of this problem were appropriate in the emergency setting Lab Data 09/15/24 09:35 09/15/24 09:35 Labs/Radiology: Radiology Impressions Abdomen/Pelvis CT 09/15/24 09:28 IMPRESSION: 1. High-grade mid to distal small bowel obstruction. 2. No free air. 3. Small amount of free fluid in the pelvis. 4. Small hiatal hernia. 5. Small umbilical hernia. 6. Prior cholecystectomy. 7. Normal appendix. Laboratory Results WBC 12.11 10^3/uL (3.29-11.43) H 09/15/24 09:35 RBC 4.73 10^6/uL (3.85-5.65) 09/15/24 09:35 Hgb 15.20 g/dL (11.27-16.99) 09/15/24 09:35 Hct 43.7 % (36-47) 09/15/24 09:35 MCV 92.4 fl (85-98) 09/15/24 09:35 MCH 32.1 pg (27-33) 09/15/24 09:35 MCHC 34.8 g/dL (30-55) 09/15/24 09:35 RDW 11.8 % (12.1-15.1) L 09/15/24 09:35 Plt Count 344 10^3/cmm (157-399) 09/15/24 09:35 MPV 9.5 fL (7.4-10.4) 09/15/24 09:35 Neut % (Auto) 88.7 % 09/15/24 09:35 Lymph % (Auto) 7.1 % 09/15/24 09:35 Davison % (Auto) 3.6 % 09/15/24 09:35 Eos % (Auto) 0.0 % 09/15/24 09:35 Baso % (Auto) 0.3 % 09/15/24 09:35 Neut # (Auto) 10.73 10^3/uL (1.8-7.7) H 09/15/24 09:35 Lymph # (Auto) 0.9 10^3/uL (0.8-4.8) 09/15/24 09:35 Davison # (Auto) 0.4 10^3/uL (0.2-0.9) 09/15/24 09:35 Eos # (Auto) 0.0 10^3/uL (0.0-0.8) 09/15/24 09:35 Baso # (Auto) 0.0 10^3/uL (0.0-0.1) 09/15/24 09:35 Nucleated RBC % (auto) 0 % 09/15/24 09:35 Nucleated RBCs # 0.0 /100WBC 09/15/24 09:35 Sodium 137 mmol/L (136-145) 09/15/24 09:35 Potassium 3.9 mmol/L (3.5-5.1) 09/15/24 09:35 Chloride 97 mmol/L (98-107) L 09/15/24 09:35 Carbon Dioxide 26 mmol/L (22-29) 09/15/24 09:35 Anion Gap 17.9 (5-19) 09/15/24 09:35 BUN 12 mg/dL (6-20) 09/15/24 09:35 Creatinine 0.9 mg/dL (0.5-0.9) 09/15/24 09:35 GFR Calculation 69.0 mL/min (90-130) L 09/15/24 09:35 Glucose 115 mg/dL (65-115) 09/15/24 09:35 Calculated Osmolality 285 mOsm/kg (285-295) 09/15/24 09:35 Lactic Acid 1.3 mmol/L (0.5-2.2) 09/15/24 09:35 Calcium 9.7 mg/dL (8.5-10.5) 09/15/24 09:35 Total Bilirubin 1.3 mg/dL (0.15-1.2) H 09/15/24 09:35 AST 16 U/L (0-32) 09/15/24 09:35 ALT 20 U/L (0-33) 09/15/24 09:35 Alkaline Phosphatase 72 U/L (35-105) 09/15/24 09:35 C-Reactive Protein 3.0 mg/L (0.0-4.9) 09/15/24 09:35 Total Protein 8.3 g/dL (6.6-8.7) 09/15/24 09:35 Albumin 4.7 g/dL (3.5-5.2) 09/15/24 09:35 Globulin 3.6 g/dL (1.3-4.6) 09/15/24 09:35 Lipase 18 U/L (13-60) 09/15/24 09:35 Urine Color Yellow (Yellow) 09/15/24 09:23 Urine Appearance Turbid (CLEAR) A 09/15/24 09:23 Urine pH 8.5 (5-7) A 09/15/24 09:23 Ur Specific [place] 1.022 (1.005-1.030) 09/15/24 09:23 Urine Protein 1+ (Negative) A 09/15/24 09:23 Urine Glucose (UA) Negative (Normal) 09/15/24 09:23 Urine Ketones 1+ (Negative) H 09/15/24 09:23 Urine Blood Negative (Negative) 09/15/24 09:23 Urine Nitrate Negative (Negative) 09/15/24 09:23 Urine Bilirubin Negative (Negative) 09/15/24 09:23 Urine Urobilinogen 1.0 mg/dL (Negative) 09/15/24 09:23 Ur Leukocyte Esterase Negative (Negative) 09/15/24 09:23 Urine RBC 11-20 /hpf (0-2) H 09/15/24 09:23 Urine WBC 0-5 /hpf (0-5) 09/15/24 09:23 Ur Squamous Epith Cells 0-5 /hpf (0-5) 09/15/24 09:23 Amorphous Sediment 3+ /hpf 09/15/24 09:23 Urine Bacteria Trace /hpf (NONE) 09/15/24 09:23 Hyaline Casts 1.21 /lpf 09/15/24 09:23 All radiology interpretation(s) finalized by discharge Discharge Plan Discharge Patient Disposition: Admitted As Inpatient Admit Provider: Pardeep Calvert Clinical Impression: Small bowel obstruction Condition: Stable Coding Level of Care Code ED Piano Accompanist for Lillie García
[2024-09-15 09:37] LABS: Bilirubin Urine Negative (Negative); Blood Urine Negative (Negative); Glucose Urine UA Negative (Normal); Ketones Urine 1+ (Negative); Leukocyte Esterase Urine Negative (Negative); Nitrate Urine Negative (Negative); Protein Urine 1+ (Negative); Specific Gravity, Urine 1.022 (1.005-1.030); Urine Appearance Turbid (CLEAR); Urine Color Yellow (Yellow); pH Urine 8.5 (5-7)
[2024-09-15 09:40] LABS: Bacteria Urine Trace /hpf; Hyaline Casts Urine 1.21 /lpf; Squamous Epithelial Cell Urine 0-5 /hpf (0-5); WBC Urine 0-5 /hpf (0-5)
[2024-09-15] MEDS: iohexol 350 mg/mL 500 mL Btl (per mL) IV (09:51)
[2024-09-15 09:54] LABS: UA Slide Review UA Slide Review Perf
[2024-09-15 09:55] LABS: Add Urine Culture? No; Amorphous Sediment Urine 3+ /hpf
[2024-09-15 09:59] LABS: Basophils % 0.3 %; Hematocrit 43.7 % (36-47); Lymphocytes # 0.9 10^3/uL (0.8-4.8); Lymphocytes % 7.1 %; Mean Corpuscular HGB Conc 34.8 g/dL (30-55); Mean Corpuscular Hemoglobin 32.1 pg (27-33); Mean Corpuscular Volume 92.4 fl (85-98); Mean Platelet Volume 9.5 fL (7.4-10.4); Monocytes # 0.4 10^3/uL (0.2-0.9); Monocytes % 3.6 %; Neutrophils # 10.73 10^3/uL (1.8-7.7); Neutrophils % 88.7 %; Nucleated Red Blood Cells % 0 %; Platelet Count 344 10^3/cmm (157-399); Red Blood Count 4.73 10^6/uL (3.85-5.65); Red Cell Distribution Width 11.8 % (12.1-15.1); White Blood Count 12.11 10^3/uL (3.29-11.43)
[2024-09-15 10:23] LABS: Alanine Aminotransferase 20 U/L (0-33); Albumin Level 4.7 g/dL (3.5-5.2); Alkaline Phosphatase 72 U/L (35-105); Anion Gap 17.9 (5-19); Aspartate Amino Transferase 16 U/L (0-32); Blood Urea Nitrogen 12 mg/dL (6-20); Calcium 9.7 mg/dL (8.5-10.5); Carbon Dioxide 26 mmol/L (22-29); Chloride 97 mmol/L (98-107); Globulin 3.6 g/dL (1.3-4.6); Glucose 115 mg/dL (65-115); Lipase 18 U/L (13-60); Osmolality Calculated 285 mOsm/kg (285-295); Potassium 3.9 mmol/L (3.5-5.1); Sodium 137 mmol/L (136-145); Total Bilirubin 1.3 mg/dL (0.15-1.2); Total Protein 8.3 g/dL (6.6-8.7)
[2024-09-15 10:24] LABS: Lactic Sepsis W/Reflex 1.3 mmol/L (0.5-2.2)
--- NOTE | 2024-09-15 10:31 | P.CONIM_ITS ---
Providers/Reason For Consult 2 Consulting Physician/Specialty*: Dr. Valente general surgery Reason for Consult*: SBO Primary Care Provider: AMISH Marti History of Present Illness History of Present Illness Laura Denny is a 43 year old female who presents with an SBO. History of cholecystectomy and hysterectomy laparoscopic both. Had 1 episode of small bowel obstruction last year. Presenting with abdominal pain. Not passing gas. No bowel movements. Abdomen is benign Medications/Allergies Home Medications ?Medication ?Instructions ?Recorded ?Confirmed ?Last Taken ?Type cetirizine 10 mg capsule (All Day 10 mg PO DAILY PRN A LLERGIES 10/30/23 09/15/24 Unknown History Allergy (cetirizine)) fluticasone propionate 50 1 spray intranasal DAILY PRN 09/15/24 09/15/24 Unknown History mcg/actuation nasal allergies spray,suspension ketoconazole 2 % shampoo 1 applic topical .2-3XWEEKLY 09/15/24 09/15/24 Unknown History Allergies Allergy/AdvReac Type Severity Reaction Status Date / Time No Known Allergies Allergy Verified 09/15/24 09:17 PFSH Acute 2 PFSH: Medical History Chronic cystitis Uterine prolapse Hx LEEP (loop electrosurgical excision procedure), cervix, Contraception management Surgical History H/O: hysterectomy History of bunionectomy (~01/2022) Performed by Dr. Damon at [facility] in [place], [place] History of cholecystectomy History of breast augmentation H/O eye surgery 2007- Lasik bilateral eyes H/O oral surgery wisdom teeth extraction Family History Grandfather CAD (coronary artery disease) maternal Mother No problems noted. Grandmother CAD (coronary artery disease) maternal Family/Other Breast cancer maternal aunt, age onset 32-34 Rectal cancer maternal aunt Father No problems noted. Social History Smoking and tobacco/nicotine status: never used tobacco/nicotine Alcohol intake: current Alcohol intake frequency: holidays/special occasions only Alcohol type: wine and hard liquor Substance/Drug Use: never Marital status: Current occupational status: employed Vitals/I&O/Wt Last Vital Signs Temp 98.3 F 09/15/24 09:13 Pulse 104 H 09/15/24 09:13 BP 114/83 09/15/24 09:13 Pulse Ox 96 09/15/24 09:13 O2 Del Method Room Air 09/15/24 09:13 Weight last 48 hrs Weight 155 lb Physical Exam 2 Narrative: Chest: Unlabored breathing room air. No lymphadenopathy. Heart: Regular rate and rhythm. Abdomen: Soft, mildly tender, distended. No masses or lymphadenopathy. Data 09/15/24 09:35 09/15/24 09:35 A&P Assessment and plan (1) Small bowel obstruction: Plan 43-year-old female who presents with SBO. No evidence of threatened bowel. NG tube to low continuous suction, IV fluids, correct electrolyte derangements. As needed pain meds. Will continue to follow PDMP PDMP Reviewed: Not Reviewed Coding Level of Care Code 20976 Diagnoses Small bowel obstruction K56.609
[2024-09-15] MEDS: HYDROmorphone 0.5 MG/0.5 ML INJ 1 MG IVP (10:45)
[2024-09-15] MEDS: ondansetron 2 mg/ML SDV 2 mL 4 MG IVP ×3 (10:45→17:57)
--- NOTE | 2024-09-15 12:18 | P.HP_ITS ---
Providers/Chief Complaint 2 Admitting Physician: Pardeep Calvert Primary Care Provider: AMISH Marti Chief Complaint: abdomen pain sent by JUAN MIGUEL JENSEN History of Present Illness Laura Denny is a 43 year old patient with a history of chronic cystitis, uterine prolapse, hysterectomy, cholecystectomy, and prior small bowel obstruction managed conservatively, presenting with mid-lower abdominal pain that began last night. The patient reports a history of diarrhea, often triggered by certain foods (especially greasy foods) due to the absence of a gallbladder, and notes that the pain started after a meal. The patient has been increasing water and electrolyte intake due to hot weather and is mindful of meal spacing and hydration. There is no vomiting currently, but the patient is not passing gas. The patient denies alcohol and recreational drug use. No allergies are reported. The patient is currently on pain medication and has received medication for nausea. The patient describes the pain as being around the belly button and received pain medication in ED. There is no swelling or additional diarrhea at present. Review of Systems 2 Const: Reports: change in appetite; Denies: fever(s), chills, body aches or malaise ENMT: Denies: throat pain Card: Denies: chest pain, edema, pre-syncope or dyspnea on exertion Resp: Denies: dyspnea, productive cough, change in phlegm color or hemoptysis GI: Reports: nausea, vomiting, diarrhea (prior) and bloating; Denies: abdominal pain, constipation, hematochezia or melena : Denies: flank pain, urinary frequency or hematuria Musc: Denies: back pain, joint swelling or joint redness Skin/Breast: Denies: rash or new lesions Neuro: Denies: headache(s) or confusion Medications/Allergies Home Medications ?Medication ?Instructions ?Recorded ?Confirmed ?Last Taken ?Type cetirizine 10 mg capsule (All Day 10 mg PO DAILY PRN A LLERGIES 10/30/23 09/15/24 Unknown History Allergy (cetirizine)) fluticasone propionate 50 1 spray intranasal DAILY PRN 09/15/24 09/15/24 Unknown History mcg/actuation nasal allergies spray,suspension ketoconazole 2 % shampoo 1 applic topical .[id number] 09/15/24 09/15/24 Unknown History Allergies Allergy/AdvReac Type Severity Reaction Status Date / Time No Known Allergies Allergy Verified 09/15/24 09:17 PFSH Acute 2 PFSH: Medical History Chronic cystitis Uterine prolapse Hx LEEP (loop electrosurgical excision procedure), cervix, Contraception management Surgical History H/O: hysterectomy History of bunionectomy (~01/2022) Performed by Dr. Damon at [facility] in [place], [place] History of cholecystectomy History of breast augmentation H/O eye surgery 2007- Lasik bilateral eyes H/O oral surgery wisdom teeth extraction Family History Grandfather CAD (coronary artery disease) maternal Mother No problems noted. Grandmother CAD (coronary artery disease) maternal Family/Other Breast cancer maternal aunt, age onset 32-34 Rectal cancer maternal aunt Father No problems noted. Social History Smoking and tobacco/nicotine status: never used tobacco/nicotine Alcohol intake: current Alcohol intake frequency: holidays/special occasions only Alcohol type: wine and hard liquor Substance/Drug Use: never Marital status: Current occupational status: employed Vitals/I&O/Wt Last Vital Signs Temp 98.3 F 09/15/24 09:13 Pulse 104 H 09/15/24 09:13 BP 114/83 09/15/24 09:13 Pulse Ox 96 09/15/24 09:13 O2 Del Method Room Air 09/15/24 09:13 Weight last 48 hrs Weight 70.307 kg Physical Exam 2 Const: COMMON NORMALS: patient oriented x3 and alert GENERAL APPEARANCE: c ooperative ORIENTATION/CONSCIOUSNESS: Yes awake HENMT: COMMON NORMALS: oropharynx normal Neck/C-Spine: COMMON NORMALS: no JVD Resp: COMMON NORMALS: normal respiratory effort and clear to auscultation bilaterally AUSCULTATION: clear to auscultation bilaterally Cardio: COMMON NORMALS: no JVD, regular rhythm, S1 normal heart sound present, S2 normal heart sound present and No murmurs present (Cardio) RHYTHM: regular rhythm HEART SOUNDS: S1 normal heart sound present and S2 normal heart sound present GI: COMMON NORMALS: Normal to inspection, nondistended, normoactive bowel sounds present, Soft to palpation and non-tender INSPECTION: Yes abdominal distension (Mild) PALPATION: Yes Soft to palpation Extremity: COMMON NORMALS: no joint enlargement and no pedal edema Neuro: COMMON NORMALS: patient oriented x3 and moves all extremities S ENSORIUM/ORIENTATION: Yes alert Skin: COMMON NORMALS: no rashes or lesions noted GENERAL SKIN EXAM: no rashes or lesions noted Data 09/15/24 09:35 09/15/24 09:35 A&P Assessment and plan (1) Small bowel obstruction: Small bowel obstruction, unable to tolerate food or drink. The patient has a history of small bowel obstruction, previously managed conservatively. Currently presenting with mid-lower abdominal pain, no vomiting, and not passing gas. Imaging (CT) reportedly shows small hernia and normal appendix. The provider discusses the risks of surgical intervention due to adhesions and potential complications, and emphasizes conservative management with meal spacing, hydration, and activity. Diarrhea is noted as a possible complicating factor, potentially related to prior cholecystectomy. The provider suggests that the surgical team will determine if further intervention (such as tube placement) is needed, especially if vomiting recurs. I reviewed vitals, CBC, CMP, CRP, UA, CT abdomen pelvis, ED provider note, discussed with ED provider. - Continue conservative management: N.p.o., ambulation, IV hydration, antiemetic as needed. Discussed ambulation. Monitor for risk of fluid overload. Electrolyte deficiencies. - Long-term prevention after recovery discussed: Space out meals, eat smaller and softer meals, maintain hydration, and increase activity (walking). - Monitor for recurrence of vomiting; if vomiting recurs, consider decompression (tube placement) as per surgical team decision. - Avoid foods that trigger diarrhea to minimize bowel motility issues. - Pain management and anti-nausea medication (Zofran) as needed. Received IV Dilaudid for pain. Minimize opioids if possible due to bowel obstruction, but repeat if needed. - Await surgical team evaluation for further management. (2) Microscopic hematuria: Without evidence or symptoms of UTI. Discussed with her would benefit from seeing follow-up with urology. Plan The patient presents with mid-lower abdominal pain that began after a meal, with a history of similar issues related to bowel obstruction and cholecystectomy. Pain is currently managed with medication. No swelling or additional diarrhea at present. - Continue current pain management regimen. - Monitor for changes in pain, swelling, or new symptoms. History of chronic cystitis : History of chronic cystitis is noted, but no active urinary symptoms are reported at this time. Urinalysis shows 11-20 RBCs, but no further details are provided. PDMP PDMP Reviewed: Not Reviewed Attestations 2 Medical Necessity Statement*: Please observation for additional assessment management of small bowel obstruction. and High MDM includes amount and/or complexity of data reviewed/ordered [ previous or external records, resulted lab(s)/test(s), ordered lab(s)/test(s) and other healthcare professional discussion] and described risk of complication, morbidity or mortality of management as documented Diagnoses Small bowel obstruction K56.609 Microscopic hematuria R31.29
[2024-09-15 13:20] LABS: Magnesium 2.1 mg/dL (1.7-2.3)
[2024-09-15] MEDS: lactated ringers 1,000 ML 100 ML IV (13:46)
[2024-09-15] MEDS: HYDROmorphone 0.5 MG/0.5 ML INJ IVP (13:47)
--- OUTSIDE RECORDS SUMMARY | 2024-09-15 14:25 | XMS_ITS | Encounter Summary ---
Author Organization [employer] [facility] Address [address] [place] [address] Care Team Providers Care Sharemilker Name Role Phone Unavailable Primary Care Provider Unavailabl e Encounter Details Date Type Department Care Team (Latest Contact Info) Description 02/28/2002 Outpatient Historical [facility] [address] 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
--- OUTSIDE RECORDS SUMMARY | 2024-09-15 14:25 | XMS_ITS | Clinical Summary ---
[facility] Address [address] 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
--- NOTE | 2024-09-15 16:08 | XRR_ITS ---
PROCEDURE INFORMATION: Exam: XR Chest Exam date and time: 09/15/2024 4:24 PM Age: 43 years old Clinical indication: Device placement; Ng tube; Additional info: Ng tube placement TECHNIQUE: Imaging protocol: Radiologic exam of the chest. Views: 1 view. COMPARISON: CR XR chest 1V portable [id number] 11/11/2023 11:56 AM FINDINGS: Tubes, catheters and devices: Enteric feeding tube is present with its distal tip and side port subdiaphragmatic. Lungs: Lung bases are relatively clear. Gastrointestinal tract: Nonspecific bowel gas pattern. XR/XR chest 1V portable [id number] IMPRESSION: As above.
[2024-09-15] MEDS: ketorolac 30 mg/mL INJ 15 MG IVP (21:23)
[2024-09-15] MEDS: blistex lip oint 7 gm Tube 1 APPLIC TOPICAL (21:32)
[2024-09-16 01:07] VITALS: BP 95/60; PULSE 86; RESP 17; TEMP 36.8; O2SAT 97
[2024-09-16] MEDS: lactated ringers 1,000 ML 100 ML IV ×2 (03:58→12:27)
[2024-09-16 05:29] VITALS: BP 103/68; PULSE 81; RESP 15; TEMP 36.8; O2SAT 96
--- NOTE | 2024-09-16 06:45 | PC.NURSE ---
NG tube placement auscultated, placement verified. coffee ground drainage. total of 450ml this shift. canister changed
[2024-09-16 06:51] LABS: Basophils # 0.1 10^3/uL (0.0-0.1); Basophils % 0.7 %; Eosinophils # 0.1 10^3/uL (0.0-0.8); Eosinophils % 1.3 %; Hematocrit 38.7 % (36-47); Lymphocytes # 2.4 10^3/uL (0.8-4.8); Lymphocytes % 31.7 %; Mean Corpuscular HGB Conc 33.3 g/dL (30-55); Mean Corpuscular Hemoglobin 31.4 pg (27-33); Mean Corpuscular Volume 94.2 fl (85-98); Mean Platelet Volume 9.6 fL (7.4-10.4); Monocytes # 0.6 10^3/uL (0.2-0.9); Monocytes % 8.2 %; Neutrophils # 4.38 10^3/uL (1.8-7.7); Neutrophils % 57.8 %; Nucleated Red Blood Cells % 0 %; Platelet Count 265 10^3/cmm (157-399); Red Blood Count 4.11 10^6/uL (3.85-5.65); Red Cell Distribution Width 11.8 % (12.1-15.1); White Blood Count 7.57 10^3/uL (3.29-11.43)
[2024-09-16 07:24] LABS: Alanine Aminotransferase 16 U/L (0-33); Albumin Level 3.9 g/dL (3.5-5.2); Alkaline Phosphatase 58 U/L (35-105); Anion Gap 13.7 (5-19); Aspartate Amino Transferase 13 U/L (0-32); Blood Urea Nitrogen 16 mg/dL (6-20); Calcium 9.2 mg/dL (8.5-10.5); Carbon Dioxide 28 mmol/L (22-29); Chloride 102 mmol/L (98-107); Glucose 86 mg/dL (65-115); Osmolality Calculated 290 mOsm/kg (285-295); Potassium 3.7 mmol/L (3.5-5.1); Sodium 140 mmol/L (136-145); Total Bilirubin 1.6 mg/dL (0.15-1.2); Total Protein 6.9 g/dL (6.6-8.7)
[2024-09-16 07:36] VITALS: BP 96/67; PULSE 83; RESP 16; TEMP 36.6; O2SAT 96
[2024-09-16] MEDS: ketorolac 30 mg/mL INJ 15 MG IVP (08:09)
--- NOTE | 2024-09-16 08:35 | P.PN_ITS ---
Subjective 2 Subjective: Passing some gas Abdominal pain significantly improved Abdomen benign NG tube output 400 cc approximately Vitals/I&O/Wt Last Vital Signs Temp 97.8 F 09/16/24 07:36 Pulse 83 09/16/24 07:36 Resp 16 09/16/24 07:36 BP 96/67 09/16/24 07:36 Pulse Ox 96 09/16/24 07:36 O2 Del Method Room Air 09/16/24 07:36 09/15/24 09/16/24 09/16/24 22:59 06:59 14:59 Intake Total 1000 / 1000 Output Total 450 / 450 Balance 550 / 550 Weight last 48 hrs Weight 155 lb Weight 155 lb Weight 155 lb Physical Exam 2 Narrative: Chest: Unlabored breathing room air. No lymphadenopathy. Heart: Regular rate and rhythm. Abdomen: Soft, mildly tender, mildly distended. No masses or lymphadenopathy. Data 09/16/24 06:19 09/16/24 06:19 A&P Assessment and plan (1) Small bowel obstruction: Plan 43-year-old female admitted with SBO. Keep NG tube to low continuous suction for 1 more day. Continue with IV fluid resuscitation and correct electrolytes. Encourage ambulation. PDMP PDMP Reviewed: Not Reviewed Attestations 2 Medical Necessity Statement*: N/A Coding Level of Care Code 68530 Diagnoses Small bowel obstruction K56.609
--- NOTE | 2024-09-16 11:44 | P.PN_ITS ---
Subjective 2 Subjective: NGT in place. No further vomiting so far. She is going to be ambulating. Vitals/I&O/Wt Last Vital Signs Temp 97.8 F 09/16/24 07:36 Pulse 83 09/16/24 07:36 Resp 16 09/16/24 07:36 BP 96/67 09/16/24 07:36 Pulse Ox 96 09/16/24 07:36 O2 Del Method Room Air 09/16/24 07:36 09/15/24 09/16/24 09/16/24 22:59 06:59 14:59 Intake Total 1000 / 1000 680 / 680 Output Total 450 / 450 Balance 550 / 550 680 / 680 Weight last 48 hrs Weight 70.307 kg Weight 70.307 kg Weight 70.307 kg Physical Exam 2 Narrative: Accompanied by her mother. Const: COMMON NORMALS: patient oriented x3 and alert GENERAL APPEARANCE: c ooperative ORIENTATION/CONSCIOUSNESS: Yes awake HENMT: COMMON NORMALS: oropharynx normal OTHER: NGT Neck/C-Spine: COMMON NORMALS: no JVD Resp: COMMON NORMALS: normal respiratory effort and clear to auscultation bilaterally AUSCULTATION: clear to auscultation bilaterally Cardio: COMMON NORMALS: no JVD, regular rhythm, S1 normal heart sound present, S2 normal heart sound present and No murmurs present (Cardio) RHYTHM: regular rhythm HEART SOUNDS: S1 normal heart sound present and S2 normal heart sound present GI: COMMON NORMALS: Normal to inspection, nondistended, normoactive bowel sounds present, Soft to palpation and non-tender INSPECTION: Yes abdominal distension (Mild) PALPATION: Yes Soft to palpation Extremity: COMMON NORMALS: no joint enlargement and no pedal edema Neuro: COMMON NORMALS: patient oriented x3 and moves all extremities S ENSORIUM/ORIENTATION: Yes alert Skin: COMMON NORMALS: no rashes or lesions noted GENERAL SKIN EXAM: no rashes or lesions noted Data 09/16/24 06:19 09/16/24 06:19 A&P Assessment and plan (1) Small bowel obstruction: Reviewed vitals, CBC, CMP, intake output. Still significant amount of gastric drainage output. Reviewed surgery note, discussed with the surgeon. Continue NGT currently. Encouraged ambulation. Discussed with nursing staff, field case manager. Monitor for risk of electrolyte deficiency, dehydration with NGT suctioning. Some reddish tinge to the NGT secretions noted in collection cup, considered possibly mild erosion by surgery. Monitor for risk of bleeding. Reassess fluid, blood counts. Hold Toradol. Small bowel obstruction, unable to tolerate food or drink. The patient has a history of small bowel obstruction, previously managed conservatively. Currently presenting with mid-lower abdominal pain, no vomiting, and not passing gas. Imaging (CT) reportedly shows small hernia and normal appendix. The provider discusses the risks of surgical intervention due to adhesions and potential complications, and emphasizes conservative management with meal spacing, hydration, and activity. Diarrhea is noted as a possible complicating factor, potentially related to prior cholecystectomy. - Avoid foods that trigger diarrhea to minimize bowel motility issues. - Pain management and anti-nausea medication (Zofran) as needed. IV morphine as needed for severe breakthrough pain. Minimize opioids if possible due to bowel obstruction. - Await surgical team evaluation for further management. - Continue IV fluid, monitor for risk of fluid overload. (2) Microscopic hematuria: Without evidence or symptoms of UTI. Discussed with her would benefit from seeing follow-up with urology. Plan The patient presents with mid-lower abdominal pain that began after a meal, with a history of similar issues related to bowel obstruction and cholecystectomy. Pain is currently managed with medication. No swelling or additional diarrhea at present. - Continue current pain management regimen. - Monitor for changes in pain, swelling, or new symptoms. History of chronic cystitis : History of chronic cystitis is noted, but no active urinary symptoms are reported at this time. Urinalysis shows 11-20 RBCs, but no further details are provided. PDMP PDMP Reviewed: Not Reviewed Attestations 2 Medical Necessity Statement*: Continue hospitalization for management of SBO. Diagnoses Small bowel obstruction K56.609 Microscopic hematuria R31.29
[2024-09-16] MEDS: acetaminophen 1,000 MG/100 ML PIGGYBACK 400 MG IV (11:58)
[2024-09-16 15:29] VITALS: BP 119/82; PULSE 103; RESP 17; TEMP 37; O2SAT 97
--- NOTE | 2024-09-16 18:14 | PC.NURSE ---
Pt requested to take NG tube out this evening. Nurse called and he stated that he did not want it removed because he did not feel that it was ready to be removed. Pt updated with what said but decided she did not want the NG tube anymore. Pt removed the NG tube herself.
[2024-09-16 22:37] VITALS: BP 143/97; PULSE 96; RESP 17; TEMP 36.6; O2SAT 97
[2024-09-17] MEDS: lactated ringers 1,000 ML 100 ML IV ×2 (00:12→09:51)
[2024-09-17 01:03] VITALS: BP 109/67; PULSE 93; RESP 17; TEMP 36.6; O2SAT 97
[2024-09-17 06:00] VITALS: BP 90/53; PULSE 87; RESP 16; TEMP 36.8; O2SAT 97
[2024-09-17 06:18] LABS: Basophils # 0.1 10^3/uL (0.0-0.1); Basophils % 0.8 %; Eosinophils # 0.1 10^3/uL (0.0-0.8); Eosinophils % 1.3 %; Hematocrit 36.7 % (36-47); Lymphocytes # 2.5 10^3/uL (0.8-4.8); Mean Corpuscular HGB Conc 33.8 g/dL (30-55); Mean Corpuscular Volume 94.8 fl (85-98); Mean Platelet Volume 9.4 fL (7.4-10.4); Monocytes # 0.5 10^3/uL (0.2-0.9); Monocytes % 6.8 %; Neutrophils # 4.31 10^3/uL (1.8-7.7); Nucleated Red Blood Cells % 0 %; Platelet Count 237 10^3/cmm (157-399); Red Blood Count 3.87 10^6/uL (3.85-5.65); Red Cell Distribution Width 11.5 % (12.1-15.1); White Blood Count 7.45 10^3/uL (3.29-11.43)
[2024-09-17 06:37] LABS: Alanine Aminotransferase 14 U/L (0-33); Albumin Level 3.7 g/dL (3.5-5.2); Alkaline Phosphatase 56 U/L (35-105); Anion Gap 15.7 (5-19); Aspartate Amino Transferase 13 U/L (0-32); Blood Urea Nitrogen 18 mg/dL (6-20); Calcium 8.9 mg/dL (8.5-10.5); Carbon Dioxide 26 mmol/L (22-29); Chloride 102 mmol/L (98-107); Globulin 2.8 g/dL (1.3-4.6); Glucose 66 mg/dL (65-115); Osmolality Calculated 290 mOsm/kg (285-295); Potassium 3.7 mmol/L (3.5-5.1); Sodium 140 mmol/L (136-145); Total Bilirubin 1.3 mg/dL (0.15-1.2); Total Protein 6.5 g/dL (6.6-8.7)
[2024-09-17 07:38] VITALS: BP 116/71; PULSE 74; RESP 16; TEMP 36.9; O2SAT 98
[2024-09-17] MEDS: acetaminophen 325 mg Tablet 650 MG PO (09:11)
--- NOTE | 2024-09-17 09:33 | P.PN_ITS ---
Subjective 2 Subjective: NG tube pulled out Tolerating clears Passing gas No abdominal pain Vitals/I&O/Wt Last Vital Signs Temp 98.4 F 09/17/24 07:38 Pulse 74 09/17/24 07:38 Resp 16 09/17/24 07:38 BP 116/71 09/17/24 07:38 Pulse Ox 98 09/17/24 07:38 O2 Del Method Room Air 09/17/24 07:38 09/16/24 09/17/24 09/17/24 22:59 06:59 14:59 Intake Total 1000 / 1895 Output Total 725 / 725 Balance 275 / 1170 Weight last 48 hrs Weight 155 lb Weight 155 lb Weight 155 lb Physical Exam 2 Narrative: Chest: Unlabored breathing room air. No lymphadenopathy. Heart: Regular rate and rhythm. Abdomen: Soft, nontender, nondistended. No masses or lymphadenopathy. Data 09/17/24 06:09 09/17/24 06:09 A&P Assessment and plan (1) Small bowel obstruction: Plan 43-year-old female admitted with SBO. Tolerating clears. Bowel function has resumed. Okay to advance to regular diet tonight. If still doing well anticipate discharge on 09/18. PDMP PDMP Reviewed: Not Reviewed Attestations 2 Medical Necessity Statement*: N/A Coding Level of Care Code 65392 Diagnoses Small bowel obstruction K56.609
[2024-09-17 11:33] VITALS: BP 134/84; PULSE 86; RESP 18; TEMP 36.5; O2SAT 95
[2024-09-17 16:17] VITALS: BP 107/68; PULSE 80; RESP 18; TEMP 36.3; O2SAT 98
--- NOTE | 2024-09-17 18:36 | P.PN_ITS ---
Subjective 2 Subjective: No new complaints today. NGT was removed last evening. She was able to tolerate oral intake today. She has good bowel sounds. Passing flatus, no pieces yet. Medications: Reviewed: Yes Vitals/I&O/Wt Last Vital Signs Temp 97.4 F L 09/17/24 16:17 Pulse 80 09/17/24 16:17 Resp 18 09/17/24 16:17 BP 107/68 09/17/24 16:17 Pulse Ox 98 09/17/24 16:17 O2 Del Method Room Air 09/17/24 16:17 09/17/24 09/17/24 09/17/24 06:59 14:59 22:59 Intake Total 965 / 965 Balance 965 / 965 Weight last 48 hrs Weight 70.307 kg Weight 70.307 kg Physical Exam 2 Narrative: General: No acute distress, AO x3 HEENT: PERRLA, pupils bilaterally equal and reactive, pallors not present Chest: Normal vesicular breath sounds, no added sounds, equal good air entry bilaterally CVS: S1-S2 regular, no murmurs, no tachycardia, no gallops, no rubs Abdomen: Soft, nontender, no organomegaly, bowel sounds present Neuro: No focal deficits, no facial deformity, AO x3, power 5/5 in all limbs Data 09/17/24 06:09 09/17/24 06:09 A&P Assessment and plan (1) Small bowel obstruction: Reviewed vitals, CBC, CMP, intake output. Still significant amount of gastric drainage output. Reviewed surgery note, discussed with the surgeon. Continue NGT currently. Encouraged ambulation. Discussed with nursing staff, telephonic case manager. Monitor for risk of electrolyte deficiency, dehydration with NGT suctioning. Some reddish tinge to the NGT secretions noted in collection cup, considered possibly mild erosion by surgery. Monitor for risk of bleeding. Reassess fluid, blood counts. Hold Toradol. Small bowel obstruction, unable to tolerate food or drink. The patient has a history of small bowel obstruction, previously managed conservatively. Currently presenting with mid-lower abdominal pain, no vomiting, and not passing gas. Imaging (CT) reportedly shows small hernia and normal appendix. The provider discusses the risks of surgical intervention due to adhesions and potential complications, and emphasizes conservative management with meal spacing, hydration, and activity. Diarrhea is noted as a possible complicating factor, potentially related to prior cholecystectomy. - Avoid foods that trigger diarrhea to minimize bowel motility issues. - Pain management and anti-nausea medication (Zofran) as needed. IV morphine as needed for severe breakthrough pain. Minimize opioids if possible due to bowel obstruction. - Await surgical team evaluation for further management. - Continue IV fluid, monitor for risk of fluid overload. (2) Microscopic hematuria: Without evidence or symptoms of UTI. Discussed with her would benefit from seeing follow-up with urology. Plan The patient presents with mid-lower abdominal pain that began after a meal, with a history of similar issues related to bowel obstruction and cholecystectomy. Pain is currently managed with medication. No swelling or additional diarrhea at present. - Continue current pain management regimen. - Monitor for changes in pain, swelling, or new symptoms. History of chronic cystitis : History of chronic cystitis is noted, but no active urinary symptoms are reported at this time. Urinalysis shows 11-20 RBCs, but no further details are provided. September 17, 2024 NGT was removed last evening. Abdominal pain is much improved. She is able to pass flatus. Has good bowel sounds. Was able to tolerate a trial of clear liquids this morning. Advance diet to GI soft today. If tolerates, continues to pass feces and flatus, may be able to discharge in the upcoming 24 hours. PDMP PDMP Reviewed: Not Reviewed Attestations 2 Medical Necessity Statement*: NGT removed, advance diet, assess for tolerability. Coding Level of Care Code Acute Code for Chg Fwd Diagnoses Small bowel obstruction K56.609 Microscopic hematuria R31.29
[2024-09-17 19:26] VITALS: BP 113/77; PULSE 93; RESP 17; TEMP 36.8; O2SAT 95
[2024-09-18 00:17] VITALS: BP 109/66; PULSE 73; RESP 16; TEMP 37.1; O2SAT 97
[2024-09-18 04:45] VITALS: BP 99/62; PULSE 77; RESP 15; TEMP 37.2; O2SAT 97
[2024-09-18 05:04] LABS: Basophils # 0.1 10^3/uL (0.0-0.1); Basophils % 0.8 %; Eosinophils # 0.2 10^3/uL (0.0-0.8); Eosinophils % 2.6 %; Hematocrit 35.5 % (36-47); Lymphocytes # 2.5 10^3/uL (0.8-4.8); Lymphocytes % 36.8 %; Mean Corpuscular HGB Conc 34.4 g/dL (30-55); Mean Corpuscular Hemoglobin 31.8 pg (27-33); Mean Corpuscular Volume 92.4 fl (85-98); Mean Platelet Volume 9.3 fL (7.4-10.4); Monocytes # 0.5 10^3/uL (0.2-0.9); Neutrophils # 3.43 10^3/uL (1.8-7.7); Neutrophils % 51.5 %; Nucleated Red Blood Cells % 0 %; Platelet Count 243 10^3/cmm (157-399); Red Blood Count 3.84 10^6/uL (3.85-5.65); Red Cell Distribution Width 11.5 % (12.1-15.1); White Blood Count 6.65 10^3/uL (3.29-11.43)
[2024-09-18 05:26] LABS: Alanine Aminotransferase 12 U/L (0-33); Albumin Level 3.8 g/dL (3.5-5.2); Alkaline Phosphatase 52 U/L (35-105); Anion Gap 12.8 (5-19); Aspartate Amino Transferase 13 U/L (0-32); Blood Urea Nitrogen 9 mg/dL (6-20); Calcium 8.9 mg/dL (8.5-10.5); Carbon Dioxide 24 mmol/L (22-29); Chloride 103 mmol/L (98-107); Globulin 2.7 g/dL (1.3-4.6); Glomerular Filtration Rate 110.2 mL/min (90-130); Glucose 91 mg/dL (65-115); Osmolality Calculated 280 mOsm/kg (285-295); Potassium 3.8 mmol/L (3.5-5.1); Sodium 136 mmol/L (136-145); Total Bilirubin 0.9 mg/dL (0.15-1.2); Total Protein 6.5 g/dL (6.6-8.7)
[2024-09-18 07:27] VITALS: BP 100/63; PULSE 83; RESP 19; TEMP 36.8; O2SAT 98
--- NOTE | 2024-09-18 10:25 | P.PN_ITS ---
Subjective 2 Subjective: tolerating reg diet had bm passing gas no abdominal pain Vitals/I&O/Wt Last Vital Signs Temp 98.3 F 09/18/24 07:27 Pulse 83 09/18/24 07:27 Resp 19 H 09/18/24 07:27 BP 100/63 09/18/24 07:27 Pulse Ox 98 09/18/24 07:27 O2 Del Method Room Air 09/18/24 07:27 09/17/24 09/18/24 09/18/24 22:59 06:59 14:59 Intake Total 800 / 1765 340 / 2105 480 / 480 Balance 800 / 1765 340 / 2105 480 / 480 Weight last 48 hrs Weight 155 lb Weight 155 lb Physical Exam 2 Narrative: rrr unlabored breathing ra abdomen soft, nt, nd Data 09/18/24 04:54 09/18/24 04:54 A&P Assessment and plan (1) Small bowel obstruction: Plan 43yo female admitted with SBO. Tolerating reg diet. Cleared for discharge. PDMP PDMP Reviewed: Not Reviewed Attestations 2 Medical Necessity Statement*: NA Coding Level of Care Code 77798 Diagnoses Small bowel obstruction K56.609
[2024-09-18 11:32] VITALS: BP 110/66; PULSE 92; RESP 19; TEMP 36.8; O2SAT 98
--- NOTE | 2024-09-18 12:08 | PC.NURSE ---
Discharge paperwork discussed with patient. All questions were answered. IV was removed. Patient walked to ER entrance escorted by AURELIO Long with all belongings at 1140.
[2024-09-18 12:11] VITALS: BP 110/66; PULSE 92; RESP 19; TEMP 36.8; O2SAT 98
--- NOTE | 2024-09-18 12:37 | PM.DCS ---
Discharge Providers Date of Admission: 09/16/24 19:28 Date of Discharge: September 18, 2024 Attending Provider at Admission: Pardeep Calvert Attending Provider at Discharge: Patricia Mckay MD Primary Care Provider: AMISH Marti Diagnoses at Discharge Discharge Diagnosis (1) Small bowel obstruction: Status: Acute (2) Microscopic hematuria: Status: Acute Reason for Visit Reason for Visit: abdomen pain sent by [facility] Hospital Course Laura Denny is a 43 year old patient with a history of chronic cystitis, uterine prolapse, hysterectomy, cholecystectomy, and prior small bowel obstruction managed conservatively, presenting with mid-lower abdominal pain. She was found to have a small bowel obstrcution On CT. She was admitted to the hospital and managed conservatively with NG tube to low continuous suction, IV fluids and maintenance of electrolytes. Her NG tube was removed on 09/16/2024 late evening. Her diet was advanced slowly on September 17, 2024 from clear liquids to GI soft and patient tolerated this intervention well. She was able to have a bowel movement on September 17, 2024 and is passing flatus today. She is being discharged today in an improved condition with resolved SBO. Denies any abdominal pain today. Physical Exam Narrative: General: No acute distress, AO x3 HEENT: PERRLA, pupils bilaterally equal and reactive, pallors not present Chest: Normal vesicular breath sounds, no added sounds, equal good air entry bilaterally CVS: S1-S2 regular, no murmurs, no tachycardia, no gallops, no rubs Abdomen: Soft, nontender, no organomegaly, bowel sounds present Neuro: No focal deficits, no facial deformity, AO x3, power 5/5 in all limbs Discharge Data Studies Completed and Pending Completed Studies During Hospitalization Category Date Time Status CT abdomen pelvis w con* [id number] Stat Cat Scan 09/15/24 09:28 Completed XR chest 1V portable [id number] Stat Exams 09/15/24 16:08 Completed Radiology Impressions Abdomen/Pelvis CT 09/15/24 09:28 IMPRESSION: 1. High-grade mid to distal small bowel obstruction. 2. No free air. 3. Small amount of free fluid in the pelvis. 4. Small hiatal hernia. 5. Small umbilical hernia. 6. Prior cholecystectomy. 7. Normal appendix. Chest X-Ray 09/15/24 16:08 IMPRESSION: As above. Laboratory Results WBC 6.65 10^3/uL (3.29-11.43) 09/18/24 04:54 RBC 3.84 10^6/uL (3.85-5.65) L 09/18/24 04:54 Hgb 12.20 g/dL (11.27-16.99) 09/18/24 04:54 Hct 35.5 % (36-47) L 09/18/24 04:54 MCV 92.4 fl (85-98) 09/18/24 04:54 MCH 31.8 pg (27-33) 09/18/24 04:54 MCHC 34.4 g/dL (30-55) 09/18/24 04:54 RDW 11.5 % (12.1-15.1) L 09/18/24 04:54 Plt Count 243 10^3/cmm (157-399) 09/18/24 04:54 MPV 9.3 fL (7.4-10.4) 09/18/24 04:54 Neut % (Auto) 51.5 % 09/18/24 04:54 Lymph % (Auto) 36.8 % 09/18/24 04:54 [place] % (Auto) 8.0 % 09/18/24 04:54 Eos % (Auto) 2.6 % 09/18/24 04:54 Baso % (Auto) 0.8 % 09/18/24 04:54 Neut # (Auto) 3.43 10^3/uL (1.8-7.7) 09/18/24 04:54 Lymph # (Auto) 2.5 10^3/uL (0.8-4.8) 09/18/24 04:54 [place] # (Auto) 0.5 10^3/uL (0.2-0.9) 09/18/24 04:54 Eos # (Auto) 0.2 10^3/uL (0.0-0.8) 09/18/24 04:54 Baso # (Auto) 0.1 10^3/uL (0.0-0.1) 09/18/24 04:54 Nucleated RBC % (auto) 0 % 09/18/24 04:54 Nucleated RBCs # 0.0 /100WBC 09/18/24 04:54 Sodium 136 mmol/L (136-145) 09/18/24 04:54 Potassium 3.8 mmol/L (3.5-5.1) 09/18/24 04:54 Chloride 103 mmol/L (98-107) 09/18/24 04:54 Carbon Dioxide 24 mmol/L (22-29) 09/18/24 04:54 Anion Gap 12.8 (5-19) 09/18/24 04:54 BUN 9 mg/dL (6-20) 09/18/24 04:54 Creatinine 0.6 mg/dL (0.5-0.9) 09/18/24 04:54 GFR Calculation 110.2 mL/min (90-130) 09/18/24 04:54 Glucose 91 mg/dL (65-115) 09/18/24 04:54 Calculated Osmolality 280 mOsm/kg (285-295) L 09/18/24 04:54 Lactic Acid 1.3 mmol/L (0.5-2.2) 09/15/24 09:35 Calcium 8.9 mg/dL (8.5-10.5) 09/18/24 04:54 Magnesium 2.1 mg/dL (1.7-2.3) 09/15/24 09:35 Total Bilirubin 0.9 mg/dL (0.15-1.2) 09/18/24 04:54 AST 13 U/L (0-32) 09/18/24 04:54 ALT 12 U/L (0-33) 09/18/24 04:54 Alkaline Phosphatase 52 U/L (35-105) 09/18/24 04:54 C-Reactive Protein 3.0 mg/L (0.0-4.9) 09/15/24 09:35 Total Protein 6.5 g/dL (6.6-8.7) L 09/18/24 04:54 Albumin 3.8 g/dL (3.5-5.2) 09/18/24 04:54 Globulin 2.7 g/dL (1.3-4.6) 09/18/24 04:54 Lipase 18 U/L (13-60) 09/15/24 09:35 Urine Color Yellow (Yellow) 09/15/24 09:23 Urine Appearance Turbid (CLEAR) A 09/15/24 09:23 Urine pH 8.5 (5-7) A 09/15/24 09:23 Ur Specific [place] 1.022 (1.005-1.030) 09/15/24 09:23 Urine Protein 1+ (Negative) A 09/15/24 09:23 Urine Glucose (UA) Negative (Normal) 09/15/24 09:23 Urine Ketones 1+ (Negative) H 09/15/24 09:23 Urine Blood Negative (Negative) 09/15/24 09:23 Urine Nitrate Negative (Negative) 09/15/24 09:23 Urine Bilirubin Negative (Negative) 09/15/24 09:23 Urine Urobilinogen 1.0 mg/dL (Negative) 09/15/24 09:23 Ur Leukocyte Esterase Negative (Negative) 09/15/24 09:23 Urine RBC 11-20 /hpf (0-2) H 09/15/24 09:23 Urine WBC 0-5 /hpf (0-5) 09/15/24 09:23 Ur Squamous Epith Cells 0-5 /hpf (0-5) 09/15/24 09:23 Amorphous Sediment 3+ /hpf 09/15/24 09:23 Urine Bacteria Trace /hpf (NONE) 09/15/24 09:23 Hyaline Casts 1.21 /lpf 09/15/24 09:23 Vitals Last Vital Signs Temp 98.2 F 09/18/24 12:11 Pulse 92 09/18/24 12:11 Resp 19 H 09/18/24 12:11 BP 110/66 09/18/24 12:11 Pulse Ox 98 09/18/24 12:11 O2 Del Method Room Air 09/18/24 11:32 Discharge Plan Discharge Patient Disposition: Home Condition: Stable Prescriptions: Continued All Day Allergy (cetirizine) 10 mg capsule 10 mg PO DAILY PRN (Reason: ALLERGIES) ketoconazole 2 % shampoo 1 applic TOPICAL .[id number] fluticasone propionate 50 mcg/actuation [place],Suspension 1 spray INTRANASAL DAILY PRN (Reason: allergies) Rx Instructions: administer into each nostril Discharge Orders: Discharge Order (Routine); Ordered 09/18/24 Ordered By: Patricia Mckay Referrals: Alexandra Palacios FNP [Primary Care Provider, Nurse Practitioner] - 7-10 days Referral Note: Please call your primary care provider tomorrow to make a hospital follow up. Patient Instructions: Constipation - Adult, Bowel Obstruction (DC), Opioid Safety, Patient Portal & Zack Instructions Discharge Attestations Time Spent in Discharge Care*: greater than 30 min Quality Metrics Clinical Quality Measures [ No reported AMI, CVA or VTE this stay] Coding Level of Care Code Acute Code for Chg Fwd Diagnoses Small bowel obstruction K56.609 Microscopic hematuria R31.29
== END 2024-09-18 11:40 | disposition home or self-care (01) | DRG 390 ==
LOC: ER 09:31 → ER IP 12:48 → MEDSURG 14:07
PROVIDERS: Admitting Provider Internal Medicine; Emergency Provider Emergency Medicine; PCP Nurse Practitioner; Visit Provider Student in an Organized Health Care Education/Training Program
DX: K56.609 Unspecified intestinal obstruction, unspecified as to partial versus complete obstruction (principal); R31.29 Other microscopic hematuria
CPT/HCPCS: 36415; 71045; 74177; 80053; 81001; 83605; 83690; 83735; 85025; 86140; 96374; 96375; 96376; 99285; G0378; J0131; J1171; J1885; J2405; J7120; J9999

== ENCOUNTER → 2024-12-14 11:16 | Outpatient (BNVA) | payer OTHER, SELFPAY | PROVIDERS: PCP Nurse Practitioner; Visit Provider Nurse Practitioner Women's Health | DX: N30.20 Other chronic cystitis without hematuria (principal) | CPT/HCPCS: 84315 ==

== ENCOUNTER → 2025-02-03 08:01 | Outpatient (BNVA) | payer OTHER, SELFPAY | PROVIDERS: PCP Nurse Practitioner; Visit Provider Nurse Practitioner Family | DX: L57.8 Other skin changes due to chronic exposure to nonionizing radiation (principal); L81.4 Other melanin hyperpigmentation; L82.1 Other seborrheic keratosis; D18.01 Hemangioma of skin and subcutaneous tissue; B07.8 Other viral warts; Z78.9 Other specified health status; R20.8 Other disturbances of skin sensation; L53.8 Other specified erythematous conditions; L29.89 Other pruritus; R58 Hemorrhage, not elsewhere classified; L57.0 Actinic keratosis | CPT/HCPCS: 17000; 17110; 99213 ==